=== PATIENT | female | born 1960 | race Hispanic/Latino ===

== ENCOUNTER 2018-07-28 17:34 | Emergency (ER) | payer OTHER ==
[2018-07-28] MEDS ORDERED: FENTANYL CITR 100 MCG/2 ML ONE (18:12)
--- NOTE | 2018-07-28 18:54 | RAD REPORT ---
EXAM DESCRIPTION: USExtremdestiny Venous Uni Ltd07/28/2018 6:48 pm CLINICAL HISTORY: Right leg pain and swelling. COMPARISON: None. FINDINGS: Right common femoral, superficial femoral, popliteal and right posterior tibial veins are compressible and demonstrate augmentation. Doppler demonstrates good flow. IMPRESSION: No evidence of deep venous thrombosis involving the right lower extremity.
[2018-07-28 18:57] LABS: Absolute Monocytes 0.5 K/uL (0.1-1.3); Absolute Neutrophil 4.3 K/uL (1.8-8.0); Basophils % 0.4 % (0-1.3); Hematocrit 40.2 % (36.0-45.0); MCH 29.5 pg (27.0-35.0); MCV 86.9 fL (80-100); MPV 8.4 fL (7.6-11.3); Monocytes % 6.6 % (3.3-12.3); RBC Red Blood Cell Count 4.62 M/uL (3.86-4.86)
[2018-07-28 19:06] LABS: Protime INR 1.01
[2018-07-28 19:20] LABS: ALT/SGPT 45 U/L (12-78); AST/SGOT 19 U/L (15-37); Albumin 4.1 g/dL (3.4-5.0); Alkaline Phosphatase 130 U/L (45-117); BUN Blood Urea Nitrogen 13 mg/dL (7-18); Bicarbonate 26 mmol/L (21-32); Bilirubin Direct < 0.1 mg/dL (0-0.2); Bilirubin Total 0.3 mg/dL (0.2-1.0); Glucose Level 104 mg/dL (74-106); NT PRO-BNP 87 pg/mL (<125); Potassium 3.8 mmol/L (3.5-5.1); Protein, Total 8.2 g/dL (6.4-8.2); Sodium Level 139 mmol/L (136-145); Troponin (Emerg Dept Use Only) < 0.02 ng/mL (0.0-0.045)
--- NOTE | 2018-07-28 19:55 | RAD REPORT ---
EXAM DESCRIPTION: CT - Chest For Pe Angio - 07/28/2018 7:43 pm CLINICAL HISTORY: sob COMPARISON: 2008 TECHNIQUE: Dynamically enhanced axial 3 mm thick images of the chest were obtained during administra tion of <100> mL Isovue 370 IV contrast. Coronal and oblique reconstruction images were generated and reviewed. Exam utilizes a protocol for optimal evaluation of pulmonary arterial tree. Maximum intensity projections 3D imaging was utilized All CT scans are performed using dose optimization technique as appropriate and may include automated exposure control or mA/KV adjustment according to patient size. FINDINGS: A pulmonary embolus is not seen. A thoracic aortic aneurysm is not noted. A pleural effusion is not seen. A pericardial effusion is not seen. A lung consolidation is not present. Fatty infiltration liver is present IMPRESSION: Negative for a pulmonary embolism.
--- NOTE | 2018-07-28 20:03 | ER ---
Nurse's Notes [facility] Name: Cindi Coats Age: 57 yrs Sex: Female : 1960 Arrival Date: 07/28/2018 Time: 17:34 Bed 23 Private MD: Diagnosis: Pain in right leg Presentation: 07/28 17:45 Presenting complaint: Patient states: right lower leg pain and swelling that began 2-3 aa5 days ago. 17:45 Transition of care: patient was not received from another setting of care. Onset of aa5 symptoms was July 2018. Risk Assessment: Do you want to hurt yourself or someone else? Patient reports no desire to harm self or others. Initial Sepsis Screen: Does the patient meet any 2 criteria? No. Patient's initial sepsis screen is negative. Does the patient have a suspected source of infection? No. Patient's initial sepsis screen is negative. Care prior to arrival: None. 17:45 Method Of Arrival: Ambulatory aa5 17:45 Acuity: HANNAH 3 aa5 Historical: - Allergies: 17:50 Sulfa (Sulfonamide Antibiotics); aa5 - PMHx: 17:50 PULMONARY HYPERTENSION; aa5 - PSHx: 17:50 Hysterectomy; Cholecystectomy; cyst removed from back; aa5 - Immunization history:: Adult Immunizations up to date. - Ebola Screening: : No symptoms or risks identified at this time. - Social history:: Smoking status: Patient/guardian denies using tobacco, never smoked. Screenin:11 Abuse screen: Denies threats or abuse. Nutritional screening: No deficits noted. tl3 Tuberculosis screening: No symptoms or risk factors identified. Fall Risk None identified. Secondary diagnosis (15 points) impaired mobility. Assessment: 18:11 General: Appears uncomfortable, obese, well groomed, well developed, well nourished, tl3 Behavior is cooperative, appropriate for age, anxious. Pain: Complains of pain in right grove. Neuro: Level of Consciousness is awake, alert, obeys commands, Oriented to person, place, time, situation, Appropriate for age. Cardiovascular: Patient's skin is warm and dry. Respiratory: Airway is patent Respiratory effort is even, unlabored, Respiratory pattern is regular, symmetrical. GI: No signs and/or symptoms were reported involving the gastrointestinal system. : No signs and/or symptoms were reported regarding the genitourinary system. EENT: No signs and/or symptoms were reported regarding the EENT system. Derm: No signs and/or symptoms reported regarding the dermatologic system. Musculoskeletal: Swelling present in right grove right calf measured 20.25 inches in diameter. left calf was 20 inches in diameter. 18:54 Reassessment: No changes from previously documented assessment. Patient and/or family tl3 updated on plan of care and expected duration. Pain level reassessed. Patient is alert, oriented x 3, equal unlabored respirations, skin warm/dry/pink. pt returned from Ultrasound. 19:47 Reassessment: Patient appears in no apparent distress at this time. No changes from tl3 previously documented assessment. Patient and/or family updated on plan of care and expected duration. Pain level reassessed. Patient is alert, oriented x 3, equal unlabored respirations, skin warm/dry/pink. pt in CT. Vital Signs: 17:48 BP 173 / 63; Pulse 80; Resp 20 S; Temp 97.5(TE); Pulse Ox 97% on R/A; Weight 112.49 kg aa5 (R); Height 5 ft. 2 in. (157.48 cm) (R); Pain 9/10; 18:11 BP 147 / 74; Pulse 75; Resp 18; Pulse Ox 95% ; tl3 18:54 BP 132 / 70; Pulse 72; Resp 18; Pulse Ox 99% on R/A; tl3 17:48 Body Mass Index 45.36 (112.49 kg, 157.48 cm) aa5 ED Course: 17:34 Patient arrived in ED. ds1 17:45 Arm band placed on Patient placed in an exam room, on a stretcher. aa5 17:50 Triage completed. aa5 17:52 Viktoriya Curiel FNP-C is PHCP. snw 17:52 Lobo Ware MD is Attending Physician. snw 18:11 Elizabeth Rivera, SVEN is Primary Nurse. tl3 18:11 Patient has correct armband on for positive identification. Placed in gown. Bed in low tl3 position. Call light in reach. Side rails up X 1. Pulse ox on. NIBP on. 18:11 No provider procedures requiring assistance completed. Inserted saline lock: 20 gauge tl3 in right antecubital area, using aseptic technique. Blood collected. 18:27 CT Chest For PE Angio Sent. tl3 18:27 US Extremity Venous Unilateral Ltd Sent. tl3 18:28 Patient taken to ultrasound. via stretcher. tl3 18:41 Radiology exam delayed due to lab results not completed at this time. (BUN/Creatinine). nj 18:48 US Extremity Venous Unilateral Ltd In Process Unspecified. EDMS 19:42 CT completed. Patient tolerated procedure well. Patient moved back from CT. jg6 19:43 CT Chest For PE Angio In Process Unspecified. EDMS 19:51 Patient moved back from radiology. tl3 20:20 IV discontinued, intact, bleeding controlled, No redness/swelling at site. Pressure mg2 dressing applied. Administered Medications: 18:05 Drug: fentaNYL (PF) 50 mcg Route: IVP; Site: right antecubital; tl3 20:13 Follow up: Response: No adverse reaction; Marked relief of symptoms mg2 Outcome: 20:01 Discharge ordered by MD. snw 20:20 Discharged to home via wheelchair. mg2 20:20 Condition: stable 20:20 Discharge instructions given to patient, Instructed on discharge instructions, follow up and referral plans. medication usage, Demonstrated understanding of instructions, follow-up care, medications, Prescriptions given X 2. 20:40 Patient left the ED. tl3 Signatures: Dispatcher [employer] EDMS Viktoriya Curiel, AIRPLANE PILOT CROP DUSTING-C AIRPLANE PILOT CROP DUSTING-Katie Currie ds1 Erika Pepper, RN RN aa5 Hammad Rizo Tammy, RN RN tl3 Dago Camilo RN RN mg2 Kaley Agosto6
--- NOTE | 2018-07-28 20:03 | EDPHYS ---
Physician Documentation [facility] Name: Cindi Coats Age: 57 yrs Sex: Female : 1960 Arrival Date: 07/28/2018 Time: 17:34 Bed 23 Private MD: ED Physician Lobo Ware HPI: 07/28 18:38 This 57 yrs old Female presents to ER via Ambulatory with complaints of Leg snw Pain. 18:38 The patient presents with pain, swelling, tenderness. The complaints affect the medial snw aspect of right calf. Context: The problem was sustained at home, resulted from an unknown cause, the patient can partially bear weight, the patient is able to ambulate, with mild difficulty. Onset: The symptoms/episode began/occurred suddenly, 2 day(s) ago, and became persistent. Associated signs and symptoms: Pertinent positives: calf tenderness, swelling. Treatment prior to arrival includes: no previous treatment. Severity of symptoms: At their worst the symptoms were moderate. The patient has not experienced similar symptoms in the past. The patient has been recently seen by a physician: the patient's primary care provider, earlier today, with similar presenting complaints, and was sent to the [facility] Emergency Department for further evaluation. Historical: - Allergies: 17:50 Sulfa (Sulfonamide Antibiotics); aa5 - PMHx: 17:50 PULMONARY HYPERTENSION; aa5 - PSHx: 17:50 Hysterectomy; Cholecystectomy; cyst removed from back; aa5 - Immunization history:: Adult Immunizations up to date. - Ebola Screening: : No symptoms or risks identified at this time. - Social history:: Smoking status: Patient/guardian denies using tobacco, never smoked. ROS: 18:38 Constitutional: Negative for fever, chills, and weight loss, Eyes: Negative for injury, snw pain, redness, and discharge, ENT: Negative for injury, pain, and discharge, Neck: Negative for injury, pain, and swelling, Cardiovascular: Negative for chest pain, palpitations, and edema, Abdomen/GI: Negative for abdominal pain, nausea, vomiting, diarrhea, and constipation, Back: Negative for injury and pain, : Negative for injury, bleeding, discharge, and swelling, Skin: Negative for injury, rash, and discoloration, Neuro: Negative for headache, weakness, numbness, tingling, and seizure. 18:38 Respiratory: Positive for shortness of breath, on exertion. 18:38 MS/extremity: Positive for pain, swelling, tenderness, of the medial aspect of right calf. Exam: 18:36 Constitutional: This is a well developed, well nourished patient who is awake, alert, snw and in no acute distress. Head/Face: Normocephalic, atraumatic. Eyes: Pupils equal round and reactive to light, extra-ocular motions intact. Lids and lashes normal. Conjunctiva and sclera are non-icteric and not injected. Cornea within normal limits. Periorbital areas with no swelling, redness, or edema. ENT: Nares patent. No nasal discharge, no septal abnormalities noted. Tympanic membranes are normal and external auditory canals are clear. Oropharynx with no redness, swelling, or masses, exudates, or evidence of obstruction, uvula midline. Mucous membranes moist. Neck: Trachea midline, no thyromegaly or masses palpated, and no cervical lymphadenopathy. Supple, full range of motion without nuchal rigidity, or vertebral point tenderness. No Meningismus. Chest/axilla: Normal chest wall appearance and motion. Nontender with no deformity. No lesions are appreciated. Cardiovascular: Regular rate and rhythm with a normal S1 and S2. No gallops, murmurs, or rubs. Normal PMI, no JVD. No pulse deficits. Abdomen/GI: Soft, non-tender, with normal bowel sounds. No distension or tympany. No guarding or rebound. No evidence of tenderness throughout. Back: No spinal tenderness. No costovertebral tenderness. Full range of motion. Skin: Warm, dry with normal turgor. Normal color with no rashes, no lesions, and no evidence of cellulitis. Neuro: Awake and alert, GCS 15, oriented to person, place, time, and situation. Cranial nerves II-XII grossly intact. Motor strength 5/5 in all extremities. Sensory grossly intact. Cerebellar exam normal. Normal gait. Psych: Awake, alert, with orientation to person, place and time. Behavior, mood, and affect are within normal limits. 18:36 Respiratory: the patient does not display signs of respiratory distress, Respirations: shallow respirations, Breath sounds: are clear throughout. 18:36 Musculoskeletal/extremity: Extremities: grossly normal except: noted in the medial aspect of right calf: swelling, tenderness, ROM: no acute changes, Circulation is intact in all extremities. Compartment Syndrome exam of affected extremity: is normal. DVT Exam: pain, swelling, of the right leg, of the medial aspect of right calf. Vital Signs: 17:48 BP 173 / 63; Pulse 80; Resp 20 S; Temp 97.5(TE); Pulse Ox 97% on R/A; Weight 112.49 kg aa5 (R); Height 5 ft. 2 in. (157.48 cm) (R); Pain 9/10; 18:11 BP 147 / 74; Pulse 75; Resp 18; Pulse Ox 95% ; tl3 18:54 BP 132 / 70; Pulse 72; Resp 18; Pulse Ox 99% on R/A; tl3 17:48 Body Mass Index 45.36 (112.49 kg, 157.48 cm) aa5 MDM: 17:53 Patient medically screened. snw 20:17 Data reviewed: vital signs, nurses notes. Data interpreted: Pulse oximetry: on room air snw is 99 %. Interpretation: normal. Counseling: I had a detailed discussion with the patient and/or guardian regarding: the historical points, exam findings, and any diagnostic results supporting the discharge/admit diagnosis, lab results, radiology results, the need for outpatient follow up, to return to the emergency department if symptoms worsen or persist or if there are any questions or concerns that arise at home. Special discussion: Based on the history and exam findings, there is no indication for further emergent testing or inpatient evaluation. I discussed with the patient/guardian the need to see the primary care provider for further evaluation of the symptoms. 07/28 18:12 Order name: Basic Metabolic Panel; Complete Time: 19:21 snw 07/28 18:12 Order name: CBC with Diff; Complete Time: 19:05 snw 07/28 18:12 Order name: LFT's; Complete Time: 19:21 snw 07/28 18:12 Order name: Magnesium; Complete Time: :21 snw 07/28 18:12 Order name: NT PRO-BNP; Complete Time: 19:21 snw 07/28 18:12 Order name: PT-INR; Complete Time: 19:10 snw 07/28 18:12 Order name: US Extremity Venous Unilateral Ltd; Complete Time: 19:05 snw 07/28 18:12 Order name: CT Chest For PE Angio; Complete Time: 20:00 snw 07/28 18:12 Order name: Troponin (emerg Dept Use Only); Complete Time: 19:21 snw 07/28 18:12 Order name: EKG; Complete Time: 18:14 snw 07/28 18:12 Order name: Cardiac monitoring; Complete Time: 18:27 snw 07/28 18:12 Order name: EKG - Nurse/Tech; Complete Time: 20:06 snw 07/28 18:12 Order name: IV Saline Lock; Complete Time: 18:27 snw 07/28 18:12 Order name: Labs collected and sent; Complete Time: 18:27 snw 07/28 18:12 Order name: O2 Per Protocol; Complete Time: 18:27 snw 07/28 18:12 Order name: O2 Sat Monitoring; Complete Time: 18:27 snw Administered Medications: 18:05 Drug: fentaNYL (PF) 50 mcg Route: IVP; Site: right antecubital; tl3 20:13 Follow up: Response: No adverse reaction; Marked relief of symptoms mg2 Disposition: 07/29 09:23 Co-signature as Attending Physician, Lobo Ware MD I agree with the assessment and kdr plan of care. Disposition: 07/28/18 20:01 Discharged to Home. Impression: Pain in right leg. - Condition is Stable. - Discharge Instructions: Musculoskeletal Pain, Pain Without a Known Cause, Heat Therapy. - Prescriptions for Tylenol- Codeine #3 300-30 mg Oral Tablet - take 1 tablet by ORAL route every 6 hours As needed; 6 tablet. Diclofenac Sodium 75 mg Oral Tablet Sustained Release - take 1 tablet by ORAL route 2 times per day; 30 tablet. - Medication Reconciliation Form, Thank You Letter, Antibiotic Education, Prescription Opioid Use form. - Follow up: Private Physician; When: 2 - 3 days; Reason: Recheck today's complaints, Continuance of care, Re-evaluation by your physician. Follow up: Emergency Department; When: As needed; Reason: Worsening of condition. Signatures: Dispatcher [employer] EDLobo Ramos MD MD kdr Therrien, Shelly, MAIN LINE ASSEMBLER-C MAIN LINE ASSEMBLER-Csnw Erika Pepper, RN RN aa5 Elizabeth Rivera RN RN tl3 Dago Camilo RN mg2 Corrections: (The following items were deleted from the chart) 07/28 20:40 20:01 07/28/2018 20:01 Discharged to Home. Impression: Pain in right leg. Condition is tl3 Stable. Forms are Medication Reconciliation Form, Thank You Letter, Antibiotic Education, Prescription Opioid Use. Follow up: Private Physician; When: 2 - 3 days; Reason: Recheck today's complaints, Continuance of care, Re-evaluation by your physician. Follow up: Emergency Department; When: As needed; Reason: Worsening of condition. snw
[2018-07-28 20:45] VITALS: TEMP 97.5
[2018-07-28 20:48] VITALS: BP 132/70; O2SAT 99
--- NOTE | 2018-07-30 11:01 | EKG ---
Test Date: 2018-07-28 Test Time: 19:18:45 Software Applications Designer: [place] MEASUREMENT RESULTS: Intervals: Rate: 70 AL: 142 QRSD: 84 QT: 404 QTc: 436 [place]: P: 18 AL: 142 QRS: 52 T: 21 INTERPRETIVE STATEMENTS: Normal sinus rhythm Normal ECG Compared to ECG 10/28/2010 13:22:10 No significant changes Electronically Signed On 07-30-18 10:56:07 CDT by David Petit
== END 2018-07-28 20:40 | disposition home or self-care (01) ==
LOC: ER 17:34
DX: M79.661 Pain in right lower leg (principal); I27.20 Pulmonary hypertension, unspecified; Z88.2 Allergy status to sulfonamides
CPT/HCPCS: 36415; 71275; 80048; 80076; 83735; 83880; 84484; 85025; 85610; 93005; 93971; 96374; 99284; J3010; Q9967

== ENCOUNTER 2021-05-19 10:48 | Emergency (ER) | payer OTHER ==
[2021-05-19 11:37] LABS: Absolute Lymphocytes (CBC) 2.5 K/uL (0.7-4.9); Basophils % 0.9 % (0-1.3); Hematocrit 36.4 % (36.0-45.0); Lymphocytes % 44.1 % (15.3-44.8); RBC Red Blood Cell Count 4.23 M/uL (3.86-4.86)
[2021-05-19 11:53] LABS: BUN Blood Urea Nitrogen 21 mg/dL (7-18); Bicarbonate 27 mmol/L (21-32); Glucose Level 106 mg/dL (74-106); Potassium 3.6 mmol/L (3.5-5.1); Sodium Level 141 mmol/L (136-145)
--- NOTE | 2021-05-19 12:02 | RAD REPORT ---
EXAM DESCRIPTION: RAD - Chest Pa And Lat (2 Views) - 05/19/2021 11:50 am CLINICAL HISTORY: COUGH Chest pain. COMPARISON: Chest Pa And Lat (2 Views) dated 03/09/2018; Chest Pa And Lat (2 Views) dated 09/01/2017; CHEST SINGLE VIEW dated 01/03/2015; CHEST PA AND LAT 2 VIEW dated 04/20/2012 FINDINGS: The lungs are mildly hyperexpanded but clear. The heart is normal in size. No displaced fr actures. IMPRESSION: No acute or concerning finding suspected.
--- NOTE | 2021-05-19 12:12 | ER ---
Nurse's Notes [facility] Name: Cindi Coats Age: 60 yrs Sex: Female : 1960 Arrival Date: 05/19/2021 Time: 10:51 Bed 2 Private MD: Diagnosis: Acute bronchitis, unspecified Presentation: 05/19 10:57 Chief complaint: Patient states: cough, congestion x SOB for over a week. Denies fever. ca1 Coronavirus screen: Client denies travel out of the [place] in the last 14 days. congestion, cough unrelated to allergies, shortness of breath, Client presents with at least one sign or symptom that may indicate coronavirus-19. Standard/surgical mask placed on the client. Provider contacted for isolation considerations. Ebola Screen: Patient negative for fever greater than or equal to 101.5 degrees Fahrenheit, and additional compatible Ebola Virus Disease symptoms Patient denies exposure to infectious person. Patient denies travel to an Ebola-affected area in the 21 days before illness onset. No symptoms or risks identified at this time. Initial Sepsis Screen: Does the patient meet any 2 criteria? No. Patient's initial sepsis screen is negative. Does the patient have a suspected source of infection? No. Patient's initial sepsis screen is negative. Risk Assessment: Do you want to hurt yourself or someone else? Patient reports no desire to harm self or others. Onset of symptoms was May 19, 2021. 10:57 Method Of Arrival: Ambulatory ca1 10:57 Acuity: HANNAH 3 ca1 Historical: - Allergies: 10:59 Sulfa (Sulfonamide Antibiotics); ca1 - PMHx: 10:59 Hypertension; PULMONARY HYPERTENSION; ca1 - PSHx: 10:59 back surgery; ca1 - Immunization history:: Client reports having NOT received the Covid vaccine. Flu vaccine is not up to date. - Social history:: Smoking status: Patient denies any tobacco usage or history of. Screenin:02 Abuse screen: Denies threats or abuse. Denies injuries from another. Nutritional ph screening: No deficits noted. Tuberculosis screening: No symptoms or risk factors identified. Fall Risk None identified. Assessment: 11:33 General: Appears in no apparent distress. comfortable, Behavior is calm, cooperative, ph appropriate for age. Pain: Complains of pain in ribs, bilateral, worse with cough. Neuro: Level of Consciousness is awake, alert, obeys commands, Oriented to person, place, time, situation. Cardiovascular: Capillary refill < 3 seconds in bilateral fingers Patient's skin is warm and dry. Respiratory: Reports shortness of breath at rest cough that is productive, persistent pain with cough Airway is patent Respiratory effort is even, unlabored, Respiratory pattern is regular, symmetrical. GI: No signs and/or symptoms were reported involving the gastrointestinal system. Patient currently denies abdominal pain, diarrhea, nausea, vomiting. Derm: Skin is intact, is fragile, Skin is pink, warm \T\ dry. Musculoskeletal: Circulation, motion, and sensation intact. Range of motion: intact in all extremities. 12:30 Reassessment: Patient appears in no apparent distress at this time. Patient and/or ph family updated on plan of care and expected duration. Pain level reassessed. Patient is alert, oriented x 3, equal unlabored respirations, skin warm/dry/pink. Awaiting COVID results. 13:30 Reassessment: Patient appears in no apparent distress at this time. Patient and/or ph family updated on plan of care and expected duration. Pain level reassessed. Patient is alert, oriented x 3, equal unlabored respirations, skin warm/dry/pink. D/C pending pt receiving additional neb tx. Vital Signs: 10:57 BP 125 / 72; Pulse 76; Resp 20 S; Temp 97.3(TE); Pulse Ox 97% on R/A; Weight 119.75 kg ca1 (R); Height 5 ft. 1 in. (154.94 cm) (R); Pain 0/10; 12:00 BP 118 / 78; Pulse 89; Resp 18; Pulse Ox 98% on R/A; ph 13:55 BP 112 / 72; Pulse 92; Resp 18; Temp 97.0; Pulse Ox 100% on R/A; ph 10:57 Body Mass Index 49.88 (119.75 kg, 154.94 cm) ca1 ED Course: 10:51 Patient arrived in ED. rg4 10:59 Triage completed. ca1 10:59 Arm band placed on right wrist. ca1 11:00 Ranjan Schrader PA is PHCP. jr8 11:00 Joseph Rasmussen MD is Attending Physician. jr8 11:01 Bishop, Shani, RN is Primary Nurse. ph 11:02 Patient has correct armband on for positive identification. Placed in gown. Bed in low ph position. Call light in reach. Side rails up X 1. Pulse ox on. NIBP on. Door closed. Noise minimized. 11:25 Initial lab(s) drawn, by me, sent to lab. COVID swab sent to lab. Inserted saline lock: ph 22 gauge in right antecubital area, using aseptic technique. Blood collected. 11:50 XRAY Chest Pa And Lat (2 Views) In Process Unspecified. EDMS 13:55 No provider procedures requiring assistance completed. IV discontinued, intact, ph bleeding controlled, No redness/swelling at site. Pressure dressing applied. Administered Medications: 12:04 Drug: Albuterol - atroVENT (ipratropium) (3:1) (2.5 mg - 0.5 mg) 3 ml Route: Nebulizer; ph 13:56 Follow up: Response: No adverse reaction ph 12:04 Drug: SOLU-Medrol (methylPrednisoLONE) 125 mg Route: IVP; Site: right antecubital; ph 13:56 Follow up: Response: No adverse reaction ph 13:00 Drug: Albuterol - atroVENT (ipratropium) (3:1) (2.5 mg - 0.5 mg) 3 ml Route: Nebulizer; ph 13:58 Follow up: Response: No adverse reaction ph Outcome: 12:11 Discharge ordered by MD. richards 13:58 Patient left the ED. ph 13:58 Discharged to home ambulatory. ph 13:58 Condition: good 13:58 Discharge instructions given to patient, Instructed on discharge instructions, follow up and referral plans. medication usage, Demonstrated understanding of instructions, follow-up care, medications, Prescriptions given X 2. Signatures: Dispatcher [employer] EDMS Ranjan Schrader PA PA jr8 Shani Bishop RN RN ph Alaina Agosto 4 Ann-Marie Hobbs RN RN ca1 Corrections: (The following items were deleted from the chart) 13:58 03:00 Albuterol - atroVENT (ipratropium) (3:1) (2.5 mg - 0.5 mg) 3 ml Nebulizer ph ph
--- NOTE | 2021-05-19 12:12 | EDPHYS ---
Physician Documentation [facility] Name: Cindi Coats Age: 60 yrs Sex: Female : 1960 Arrival Date: 05/19/2021 Time: 10:51 Bed 2 Private MD: ED Physician Joseph Rasmussen HPI: 05/19 11:23 This 60 yrs old Female presents to ER via Ambulatory with complaints of jr8 Congestion, Breathing Difficulty. 11:23 The patient has shortness of breath at rest. Onset: The symptoms/episode began/occurred jr8 suddenly, 1 week(s) ago, and became worse and became persistent. Duration: The symptoms are continuous, and are steadily getting worse. The patient's shortness of breath is aggravated by light activity. Associated signs and symptoms: Pertinent positives: productive cough. Severity of symptoms: At their worst the symptoms were moderate in the emergency department the symptoms are unchanged. The patient has not experienced similar symptoms in the past. The patient has not recently seen a physician. Historical: - Allergies: 10:59 Sulfa (Sulfonamide Antibiotics); ca1 - PMHx: 10:59 Hypertension; PULMONARY HYPERTENSION; ca1 - PSHx: 10:59 back surgery; ca1 - Immunization history:: Client reports having NOT received the Covid vaccine. Flu vaccine is not up to date. - Social history:: Smoking status: Patient denies any tobacco usage or history of. ROS: 11:23 Eyes: Negative for injury, pain, redness, and discharge, ENT: Negative for injury, jr8 pain, and discharge, Neck: Negative for injury, pain, and swelling, Cardiovascular: Negative for chest pain, palpitations, and edema, Abdomen/GI: Negative for abdominal pain, nausea, vomiting, diarrhea, and constipation, Back: Negative for injury and pain, MS/Extremity: Negative for injury and deformity, Skin: Negative for injury, rash, and discoloration, Neuro: Negative for headache, weakness, numbness, tingling, and seizure. 11:23 Respiratory: Positive for cough, dyspnea on exertion, shortness of breath, wheezing. Exam: 11:23 Constitutional: This is a well developed, well nourished patient who is awake, alert, jr8 and in no acute distress. Eyes: Pupils equal round and reactive to light, extra-ocular motions intact. Lids and lashes normal. Conjunctiva and sclera are non-icteric and not injected. Cornea within normal limits. Periorbital areas with no swelling, redness, or edema. ENT: Nares patent. No nasal discharge, no septal abnormalities noted. Tympanic membranes are normal and external auditory canals are clear. Oropharynx with no redness, swelling, or masses, exudates, or evidence of obstruction, uvula midline. Mucous membranes moist. Neck: Trachea midline, no thyromegaly or masses palpated, and no cervical lymphadenopathy. Supple, full range of motion without nuchal rigidity, or vertebral point tenderness. No Meningismus. Cardiovascular: Regular rate and rhythm with a normal S1 and S2. No gallops, murmurs, or rubs. Normal PMI, no JVD. No pulse deficits. Abdomen/GI: Soft, non-tender, with normal bowel sounds. No distension or tympany. No guarding or rebound. No evidence of tenderness throughout. Back: No spinal tenderness. No costovertebral tenderness. Full range of motion. Skin: Warm, dry with normal turgor. Normal color with no rashes, no lesions, and no evidence of cellulitis. MS/ Extremity: Pulses equal, no cyanosis. Neurovascular intact. Full, normal range of motion. Neuro: Awake and alert, GCS 15, oriented to person, place, time, and situation. Cranial nerves II-XII grossly intact. Motor strength 5/5 in all extremities. Sensory grossly intact. 11:23 Respiratory: the patient does not display signs of respiratory distress, Respirations: tachypnea, that is mild, Breath sounds: wheezing: expiratory that is moderate, is heard diffusely. Vital Signs: 10:57 BP 125 / 72; Pulse 76; Resp 20 S; Temp 97.3(TE); Pulse Ox 97% on R/A; Weight 119.75 kg ca1 (R); Height 5 ft. 1 in. (154.94 cm) (R); Pain 0/10; 12:00 BP 118 / 78; Pulse 89; Resp 18; Pulse Ox 98% on R/A; ph 13:55 BP 112 / 72; Pulse 92; Resp 18; Temp 97.0; Pulse Ox 100% on R/A; ph 10:57 Body Mass Index 49.88 (119.75 kg, 154.94 cm) ca1 MDM: 11:00 Patient medically screened. jr8 12:09 Data reviewed: vital signs, nurses notes, lab test result(s), radiologic studies, plain jr8 films. Data interpreted: Pulse oximetry: on room air is 97 %. Interpretation: normal. Counseling: I had a detailed discussion with the patient and/or guardian regarding: the historical points, exam findings, and any diagnostic results supporting the discharge/admit diagnosis, lab results, radiology results, the need for outpatient follow up, a family practitioner, to return to the emergency department if symptoms worsen or persist or if there are any questions or concerns that arise at home. 12:09 ED course: Patient feeling better. No signs of pneumonia on CXR. Blood and VS stable. jr8 Will d/c home with steroids and breathing treatments. No indication for Abx at this time . 05/19 11:12 Order name: CBC with Diff; Complete Time: 11:56 jr8 05/19 11:12 Order name: Basic Metabolic Panel; Complete Time: 11:56 jr8 05/19 11:12 Order name: XRAY Chest Pa And Lat (2 Views); Complete Time: 12:08 jr8 05/19 12:42 Order name: SARS-COV-2 RT PCR; Complete Time: 12:54 EDMS 05/19 11:12 Order name: IV; Complete Time: 11:30 jr8 Administered Medications: 12:04 Drug: Albuterol - atroVENT (ipratropium) (3:1) (2.5 mg - 0.5 mg) 3 ml Route: Nebulizer; ph 13:56 Follow up: Response: No adverse reaction ph 12:04 Drug: SOLU-Medrol (methylPrednisoLONE) 125 mg Route: IVP; Site: right antecubital; ph 13:56 Follow up: Response: No adverse reaction ph 13:00 Drug: Albuterol - atroVENT (ipratropium) (3:1) (2.5 mg - 0.5 mg) 3 ml Route: Nebulizer; ph 13:58 Follow up: Response: No adverse reaction ph Disposition: 16:55 Co-signature as Attending Physician, Joseph Rasmussen MD. rn Disposition Summary: 05/19/21 12:11 Discharge Ordered Location: Home jr8 Problem: new jr8 Symptoms: have improved jr8 Condition: Stable jr8 Diagnosis - Acute bronchitis, unspecified jr8 Followup: jr8 - With: Private Physician - When: 5 - 6 days - Reason: Recheck today's complaints, Continuance of care, Re-evaluation by your physician Discharge Instructions: - Discharge Summary Sheet jr8 - Acute Bronchitis, Adult, [id number] jr8 Forms: - Medication Reconciliation Form jr8 - Thank You Letter jr8 - Antibiotic Education jr8 - Prescription Opioid Use jr8 Prescriptions: - albuterol sulfate 90 mcg/actuation Inhalation HFA aerosol inhaler - inhale 2 puff by INHALATION route every 4-6 hours; 1 Inhaler; Refills: 0, jr8 Product Selection Permitted - Medrol (Brody) 4 mg Oral Tablets, Dose Pack - take 1 tablet by ORAL route as directed - follow package instructions; 1 jr8 packet; Refills: 0, Product Selection Permitted Signatures: Dispatcher [employer] EDJoseph Funk MD MD rn Ranjan Schrader PA PA jr8 Shani Bishop RN RN ph Ann-Marie Hobbs RN RN ca1 Corrections: (The following items were deleted from the chart) 11:43 11:12 CORONAVIRUS+MR.LAB.BRZ ordered. EDNH EDMS
[2021-05-19] MEDS ORDERED: METHYLPREDNISOLONE 125 MG INJ ONE (12:17)
[2021-05-19] MEDS ORDERED: ALBUTEROL 2.5 MG/3 ML NEB SOL ONE ×2 (12:18→13:19)
[2021-05-19] MEDS ORDERED: IPRATROPIUM BROM 0.5MG/2.5ML ONE ×2 (12:18→13:20)
== END 2021-05-19 13:58 | disposition home or self-care (01) ==
LOC: ER 10:48
DX: J20.9 Acute bronchitis, unspecified (principal); I10 Essential (primary) hypertension; Z20.822 Contact with and (suspected) exposure to COVID-19; Z88.2 Allergy status to sulfonamides
CPT/HCPCS: 85025; 80048; 36415; 71046; 96374; 99284; U0003; J2930

== ENCOUNTER 2021-06-19 15:33 | Inpatient (IN) | payer OTHER ==
--- OUTSIDE RECORDS SUMMARY | 2021-06-19 15:36 | XMS REPORT | Continuity of Care Document ---
:1960 Author Organization [facility] t Address [address] [place] [address] [address] [place] [address] Care Team Providers Name Role Phone Nurse, Urgent Attending Clinician Unavailable Lab, Fam Pob I Attending Clinician Unavailable Doctor Unassigned, Name Attending Clinician Unavailable Problems This patient has no known problems. Allergies, Adverse Reactions, Alerts This patient has no known allergies or adverse reactions. Medications This patient has no known medications. Procedures This patient has no known procedures. Encounters Start End Encounter Admission Attending Care Care Encounter Source Date/Time Date/Time Type Type Clinicians Facility Department ID 2021-06-18 2021-06-18 Telephone Nurse, Patrice Perez [id number] 00:00:00 00:00:00 Urgent Pediatric [id number] s and [id number] Adult [id number] [facility] 2021-06-14 2021-06-14 Laboratory Lab, [facility] [id number] 13:44:00 14:04:00 Only Fam Pob I Health [id number] [place] [id number] Professio [id number] [address] 2021-06-14 2021-06-14 Orders Doctor DELILAH [id number] 00:00:00 00:00:00 Only Unassigned, ITA [id number] [place] [facility] [phone] [id number] Results This patient has no known results.
--- NOTE | 2021-06-19 16:38 | RAD REPORT ---
EXAM DESCRIPTION: RAD - Chest Pa And Lat (2 Views) - 06/19/2021 4:22 pm CLINICAL HISTORY: Cough;SOB COMPARISON: Two view chest May 19 TECHNIQUE: Frontal and lateral views of the chest were obtained. FINDINGS: The lungs are normal volume. Since prior imaging interstitial and alveolar opacities have developed in the lower lung shay. Given the provided history this is most likely a mild bilateral C OVID-19 pneumonia. Trachea is midline. Heart size is normal and central vasculature is within normal limits. No pleur al effusion or pneumothorax seen. No acute bony finding noted. No aortic abnormality. IMPRESSION: Mild bilateral COVID-19 pneumonia.
[2021-06-19 19:09] LABS: Absolute Lymphocytes (CBC) 2.1 K/uL (0.7-4.9); Basophils % 0.7 % (0-1.3); Hematocrit 42.6 % (36.0-45.0); MPV 8.1 fL (7.6-11.3); RBC Red Blood Cell Count 4.89 M/uL (3.86-4.86)
[2021-06-19 19:15] LABS: Protime INR 1.14
[2021-06-19 19:32] LABS: ALT/SGPT 76 U/L (12-78); AST/SGOT 48 U/L (15-37); Albumin 3.8 g/dL (3.4-5.0); Alkaline Phosphatase 122 U/L (45-117); BUN Blood Urea Nitrogen 11 mg/dL (7-18); Bicarbonate 23 mmol/L (21-32); Bilirubin Direct 0.1 mg/dL (0-0.2); Bilirubin Total 0.5 mg/dL (0.2-1.0); Ferritin 1008.3 ng/mL (8-388); Glucose Level 110 mg/dL (74-106); Magnesium 2.1 mg/dL (1.8-2.4); NT PRO-BNP 28 pg/mL (<125); Potassium 3.8 mmol/L (3.5-5.1); Protein, Total 8.5 g/dL (6.4-8.2); Sodium Level 134 mmol/L (136-145); Troponin (Emerg Dept Use Only) < 0.02 ng/mL (0.0-0.045)
[2021-06-19 20:26] LABS: Blood Morphology Comment NOT SEEN (NOT SEEN); Platelet Estimate ADEQ; Platelets, Giant PRESENT; White Blood Cell Scan OK (OK)
[2021-06-19 20:31] LABS: Blood Gas Oxyhemoglobin 88.9 % (94-97); Blood O2 Saturation 90.5 % (92-98.5)
[2021-06-19] MEDS ORDERED: NA CHLORIDE 0.9% 1,000 ML ONE (20:48)
[2021-06-19] MEDS ORDERED: METHYLPREDNISOLONE 125 MG INJ ONE (20:48)
--- NOTE | 2021-06-19 21:02 | ER ---
Nurse's Notes [facility] Name: Cindi Coats Age: 60 yrs Sex: Female : 1960 Arrival Date: 06/19/2021 Time: 15:37 Bed 24 Private MD: Meño Huffman Diagnosis: SARS-associated coronavirus as the cause of diseases classified elsewhere;Other viral pneumonia Presentation: 06/19 15:59 Chief complaint: Patient states: COVID positive x 5 days, symptoms started 8 days ago, jl7 increased SOB, pulse ox at home 87%. Coronavirus screen: Client denies travel out of the [place] in the last 14 days. shortness of breath, Client reports previous positive COVID test result. Date of collection: June 11, 2021. Ebola Screen: No symptoms or risks identified at this time. Initial Sepsis Screen: Does the patient meet any 2 criteria? No. Patient's initial sepsis screen is negative. Does the patient have a suspected source of infection? No. Patient's initial sepsis screen is negative. Risk Assessment: Do you want to hurt yourself or someone else? Patient reports no desire to harm self or others. Onset of symptoms was June 11, 2021. 15:59 Method Of Arrival: Ambulatory [facility] 15:59 Acuity: HANNAH 3 jl7 Triage Assessment: 20:05 General: Appears uncomfortable, Behavior is calm, cooperative, appropriate for age. lh3 Pain: Denies pain. Respiratory: Reports shortness of breath cough that is non-productive, pain with cough Pain is 5 out of 10 on a pain scale. Onset: The symptoms/episode began/occurred today, the patient has moderate shortness of breath. Historical: - Allergies: 16:02 Sulfa (Sulfonamide Antibiotics); jl7 - PMHx: 16:02 Hypertension; PULMONARY HYPERTENSION; Hypothyroidism; jl7 - PSHx: 16:02 back surgery; jl7 - Immunization history:: Adult Immunizations unknown, Client reports having NOT received the Covid vaccine. - Social history:: Smoking status: Patient denies any tobacco usage or history of. Screenin:07 Abuse screen: Denies threats or abuse. Nutritional screening: No deficits noted. lh3 Tuberculosis screening: No symptoms or risk factors identified. Fall Risk IV access (20 points). Assessment: 20:07 Cardiovascular: Rhythm is regular. Respiratory: Airway is patent Respiratory effort is lh3 even, labored, Breath sounds are diminished. Vital Signs: 15:59 BP 120 / 70; Pulse 84; Resp 19; Temp 97.6; Pulse Ox 92% ; Weight 116.12 kg; Height 5 jl7 ft. 2 in. (157.48 cm); Pain 7/10; 20:05 BP 127 / 82; Pulse 78; Resp 20; Temp 98.2; Pulse Ox 93% ; lh3 06/20 04:09 BP 117 / 77; Pulse 61; Resp 20; Pulse Ox 97% ; tt3 06/19 15:59 Body Mass Index 46.82 (116.12 kg, 157.48 cm) jl7 ED Course: 06/19 15:37 Patient arrived in ED. mr 16:02 Triage completed. jl7 16:02 Arm band placed on right wrist. jl7 16:03 Frank Dozier PA is PHCP. cp 16:03 Lobo Ware MD is Attending Physician. cp 16:21 XRAY Chest Pa And Lat (2 Views) In Process Unspecified. EDMS 18:50 Inserted saline lock: 20 gauge in right antecubital area, using aseptic technique. mt Blood collected. 20:05 Nelly Mccartney, RN is Primary Nurse. lh3 20:07 Patient has correct armband on for positive identification. Bed in low position. Call 3 light in reach. Side rails up X 1. 20:07 No provider procedures requiring assistance completed. lh3 20:38 Meño Huffman MD is Private Physician. cp 20:40 CT Chest For PE Angio In Process Unspecified. EDMS 21:01 Cornelio Nj PA is Hospitalizing Provider. cp 06/20 02:44 Katherine Lanza MD is Hospitalizing Provider. cp 06:40 Patient admitted, IV remains in place. bb Administered Medications: 06/19 20:36 Drug: SOLU-Medrol (methylPrednisoLONE) 125 mg Route: IVP; Site: right antecubital; lh3 20:36 Drug: NS 0.9% 500 ml Route: IV; Rate: bolus; Site: right antecubital; lh3 20:36 Drug: NS 0.9% 500 ml Route: IV; Rate: 100 ml/hr; Site: right antecubital; lh3 Outcome: 21:02 Decision to Hospitalize by Provider. cyrus 06/20 06:40 Admitted to ER Hold. Please see [facility] for further documentation. bb Condition: stable Instructed on the need for admit. 06/22 00:05 Patient left the ED. kate Signatures: Dispatcher [employer] EDMN Margarette Warren, eMlisa, RN RN bb Frank Dozier PA PA cp Leal, Jahala, RN RN Anna Marie Wilkinson mt, [facility] Yesi Kim RN RN zb Nelly Mccartney RN RN [facility]
--- NOTE | 2021-06-19 21:03 | EDPHYS ---
Physician Documentation [facility] Name: Cindi Coats Age: 60 yrs Sex: Female : 1960 Arrival Date: 06/19/2021 Time: 15:37 Bed 24 Private MD: Meño Huffman ED Physician Lobo Ware HPI: 06/19 16:15 This 60 yrs old Female presents to ER via Ambulatory with complaints of cp COVID+, Shortness Of Breath. 16:15 The patient has shortness of breath at rest. cp 16:15 Onset: The symptoms/episode began/occurred gradually, and became worse today. Duration: cp The symptoms are continuous, and are steadily getting worse. Associated signs and symptoms: Pertinent positives: chest pain, non-productive cough, Pertinent negatives: diaphoresis, dizziness, fever, nausea, vomiting. Severity of symptoms: in the emergency department the symptoms are unchanged despite home interventions. Patient reports testing positive for COVID-19 5 days ago. Patient reports increasing shortness of breath . Historical: - Allergies: 16:02 Sulfa (Sulfonamide Antibiotics); jl7 - PMHx: 16:02 Hypertension; PULMONARY HYPERTENSION; Hypothyroidism; jl7 - PSHx: 16:02 back surgery; jl7 - Immunization history:: Adult Immunizations unknown, Client reports having NOT received the Covid vaccine. - Social history:: Smoking status: Patient denies any tobacco usage or history of. ROS: 16:20 Constitutional: Positive for body aches, Negative for chills, fever, poor PO intake. cp 16:20 Eyes: Negative for injury, pain, redness, and discharge. cp 16:20 ENT: Negative for ear pain, sore throat, difficulty swallowing, difficulty handling secretions. 16:20 Cardiovascular: Negative for chest pain, edema, palpitations. 16:20 Respiratory: Positive for cough, with no reported sputum, shortness of breath, Negative for wheezing. 16:20 Abdomen/GI: Negative for abdominal pain, vomiting, diarrhea, constipation. 16:20 Neuro: Negative for altered mental status, headache, syncope, weakness. 16:20 All other systems are negative. Exam: 16:25 Constitutional: The patient appears in no acute distress, alert, awake, cp non-diaphoretic, non-toxic, well developed, well nourished, obese. 16:25 Head/Face: Normocephalic, atraumatic. cp 16:25 Eyes: Periorbital structures: appear normal, Conjunctiva: normal, no exudate, no injection, Sclera: no appreciated abnormality, Lids and lashes: appear normal, bilaterally. 16:25 ENT: External ear(s): are unremarkable, Nose: is normal, Mouth: Lips: moist, Oral mucosa: moist, Posterior pharynx: Airway: no evidence of obstruction, patent. 16:25 Neck: ROM/movement: is normal, is supple, without pain, no range of motions limitations, no meningismus. 16:25 Chest/axilla: Inspection: normal, Palpation: is normal, no crepitus, no tenderness. 16:25 Cardiovascular: Rate: normal, Rhythm: regular, Edema: is not appreciated, JVD: is not appreciated. 16:25 Respiratory: the patient does not display signs of respiratory distress, Respirations: labored breathing, is not present, shallow respirations, that is mild, Breath sounds: decreased breath sounds, that are mild, throughout, stridor, is not appreciated, wheezing: is not appreciated. 16:25 Abdomen/GI: Inspection: abdomen appears normal, Palpation: abdomen is soft and non-tender, in all quadrants. 16:25 Neuro: Orientation: to person, place \T\ time. Mentation: is normal, Cerebellar function: is grossly normal, Motor: moves all fours, strength is normal, Sensation: is normal. Vital Signs: 15:59 BP 120 / 70; Pulse 84; Resp 19; Temp 97.6; Pulse Ox 92% ; Weight 116.12 kg; Height 5 jl7 ft. 2 in. (157.48 cm); Pain 7/10; 20:05 BP 127 / 82; Pulse 78; Resp 20; Temp 98.2; Pulse Ox 93% ; lh3 06/20 04:09 BP 117 / 77; Pulse 61; Resp 20; Pulse Ox 97% ; tt3 06/19 15:59 Body Mass Index 46.82 (116.12 kg, 157.48 cm) jl7 MDM: 06/19 19:27 Patient medically screened. cp 21:05 Counseling: I had a detailed discussion with the patient and/or guardian regarding: the cp historical points, exam findings, and any diagnostic results supporting the discharge/admit diagnosis, lab results, the need for further work-up and treatment in the hospital. 21:05 Response to treatment: the patient's symptoms have mildly improved after treatment, and cp as a result, I will admit patient. 21:30 Data reviewed: vital signs, nurses notes, lab test result(s), EKG, radiologic studies, cp CT scan, plain films. 21:30 Test interpretation: by ED physician or midlevel provider: ECG, plain radiologic cp studies. 06/19 16:06 Order name: Basic Metabolic Panel cp 06/19 16:06 Order name: CBC with Diff; Complete Time: 20:31 cp 06/19 20:31 Interpretation: Normal except: RBC 4.89; RDW 15.5. cp 06/19 16:06 Order name: LFT's; Complete Time: 19:37 cp 06/19 16:06 Order name: Magnesium; Complete Time: 19:37 cp 06/19 16:06 Order name: NT PRO-BNP; Complete Time: 19:37 cp 06/19 16:06 Order name: PT-INR; Complete Time: 20:14 cp 06/19 16:06 Order name: Troponin (emerg Dept Use Only); Complete Time: 19:37 cp 06/19 16:06 Order name: CRP; Complete Time: 19:37 cp 06/19 16:06 Order name: Ferritin; Complete Time: 19:37 cp 06/19 16:06 Order name: D-Dimer; Complete Time: 20:14 cp 06/19 20:14 Interpretation: Abnormal: D-DIMER 862. cp 06/19 16:06 Order name: Basic Metabolic Panel; Complete Time: 19:37 EDMS 06/19 19:27 Order name: ABG; Complete Time: 20:36 cp 06/19 20:26 Order name: CBC Smear Scan; Complete Time: 20:31 EDMS 06/20 06:58 Order name: CBC with Automated Diff EDMS 06/20 07:15 Order name: Comprehensive Metabolic Panel EDMS 06/20 07:15 Order name: Phosphorus EDMS 06/20 07:15 Order name: Lipid Profile EDMS 06/20 07:15 Order name: C-Reactive Protein EDMS 06/20 07:15 Order name: T4 Free EDMS 06/20 07:15 Order name: Magnesium EDMS 08/13 07:15 Order name: Thyroid Stimulating Hormone EDNY 06/20 07:15 Order name: Ferritin EDNY 06/20 07:56 Order name: Procalcitonin EDNY 06/20 14:38 Order name: Glucose, Ancillary Testing EDNY 06/20 17:03 Order name: Glucose, Ancillary Testing EDNY 06/21 04:58 Order name: CBC with Automated Diff EDMS 06/21 05:22 Order name: Comprehensive Metabolic Panel EDNY 06/21 05:22 Order name: C-Reactive Protein EDNY 06/21 05:22 Order name: Magnesium EDMS 06/21 05:22 Order name: Ferritin EDNY 06/19 16:06 Order name: EKG; Complete Time: 16:06 cp 06/19 16:06 Order name: EKG - Nurse/Tech; Complete Time: 18:51 cp 06/19 16:06 Order name: XRAY Chest Pa And Lat (2 Views); Complete Time: 19:37 cp 06/19 16:06 Order name: Cardiac monitoring; Complete Time: 22:22 cp 06/19 16:06 Order name: IV Saline Lock; Complete Time: 18:51 cp 06/19 16:06 Order name: Labs collected and sent; Complete Time: 18:51 cp 06/19 16:06 Order name: O2 Per Protocol; Complete Time: 22:22 cp 06/19 16:06 Order name: O2 Sat Monitoring; Complete Time: 22:22 cp 06/19 20:15 Order name: CT Chest For PE Angio; Complete Time: 21:25 cp 06/19 21:25 Interpretation: Report reviewed. cp 06/19 20:59 Order name: CONS Physician Consult EDNY 06/19 21:47 Order name: Oxygen: 2 liters via NC; Complete Time: 22:02 cp 06/21 09:07 Order name: RAD [facility] Administered Medications: 20:36 Drug: SOLU-Medrol (methylPrednisoLONE) 125 mg Route: IVP; Site: right antecubital; lh3 20:36 Drug: NS 0.9% 500 ml Route: IV; Rate: bolus; Site: right antecubital; lh3 20:36 Drug: NS 0.9% 500 ml Route: IV; Rate: 100 ml/hr; Site: right antecubital; lh3 Disposition Summary: 06/19/21 21:02 Hospitalization Ordered Hospitalization Status: Inpatient Admission cp Condition: Stable cp Problem: new cp Symptoms: have improved cp Bed/Room Type: Standard cp Provider: Katherine Lanza(06/20/21 02:44) cp Location: Telemetry/MedSurg (Inpatient)(06/21/21 22:19) em Room Assignment: 415(06/21/21 22:19) em Diagnosis - SARS-associated coronavirus as the cause of diseases classified elsewhere cp - Other viral pneumonia cp Forms: - Medication Reconciliation Form cp - SBAR form cp Addendum: 06/23/2021 07:11 Co-signature as Attending Physician, Lobo Ware MD I agree with the assessment and k dr plan of care. Signatures: Dispatcher [employer] EDMS Lobo Ware MD MD [facility] Camilo Rodriguez, RN RN em Madison Godfrey RN RN tl1 Frank Dozier PA PA cp Fredrick Chatman RN RN jl7 Nelly Mccartney RN RN lh3 Corrections: (The following items were deleted from the chart) 06/19 20:31 20:31 Normal except: RBC 4.89. cp cp 22:50 21:02 Telemetry/MedSurg (Inpatient) cp tl1 22:50 21:02 cp tl1 06/20 02:44 06/19 21:02 Cornelio Nj cp cp 06/21 22:19 06/19 22:50 [facility] ER HOLD tl1 em 06/21 22:19 06/19 22:50 ERHOLD- tl1 em
--- NOTE | 2021-06-19 21:07 | RAD REPORT ---
EXAM DESCRIPTION: CT - Chest For Pe Angio - 06/19/2021 8:41 pm CLINICAL HISTORY: Chest pain;Cough COMPARISON: Chest For Pe Angio dated 07/28/2018; Chest Pa And Lat (2 Views) dated 06/19/2021 TECHNIQUE: Dynamically enhanced 3 mm thick images of the chest were obtained during administration o f approximately 150mL Isovue 370 IV contrast. Coronal and oblique MIP reconstruction images were gene rated and reviewed. Exam utilizes a protocol to evaluate the pulmonary arterial tree. All CT scans are performed using dose optimization technique as appropriate and may include automated exposure control or mA/KV adjustment according to patient size. FINDINGS: No pulmonary emboli are identified. The aorta as imaged shows no acute or suspicious finding. No pericardial thickening or effusion. Peripheral patchy ground-glass opacification present. This pattern along with the provided history wo uld indicate a COVID-19 pneumonia. Non COVID viral etiologies are also possible but lesser in likelih ood. No pleural effusion or pleural thickening. Hilar reactive type lymph nodes are present. Mediastinal lymph nodes are present also likely reactive . No chest wall masses or abnormal axillary lymphadenopathy. IMPRESSION: No pulmonary emboli identified. Mild COVID-19 pneumonia pattern.
[2021-06-19 22:30] VITALS: BMI 45.7
[2021-06-19] MEDS ORDERED: ACETAMINOPHEN 500 MG TAB PO PRN (22:31)
[2021-06-19] MEDS ORDERED: MELATONIN 5 MG TABLET PO PRN (22:31)
[2021-06-19] MEDS ORDERED: MORPHINE 2 MG/ML SYR IV PRN (22:31)
[2021-06-19] MEDS ORDERED: ALBUTEROL 2.5 MG/3 ML NEB SOL NEB PRN (22:31)
--- NOTE | 2021-06-19 23:14 | P.HP ---
Certification for Inpatient Patient admitted to: Observation With expected LOS: <2 Midnights Patient will require the following post-hospital care: None Practitioner: I am a practitioner with admitting privileges, knowledge of patient current condition, hospital course, and medical plan of care. Services: Services provided to patient in accordance with Admission requirements found in Title 42 Section 412.3 of the Code of Federal Regulations Patient History Date of Service: 06/19/21 Primary Care Provider: [facility] Reason for admission: covid pneumonia History of Present Illness: Ms. Coats is a 60 yo F with HTN and hypothyroidism who presents with cough and SOB. Her symptoms started last , and she tested positive for COVID on Wednesday. She reports pleuritic pain, wheezing, chills, nausea, vomiting and diarrhea. Has had poor appetite, fluid intake good. Came in otday for increased VINES, could not catch her breath when walking or talking. O2 sats at home in the 80s. CT scan showed mild covid-19 pneumonia pattern. D dimer 862, Ferritin 1008, CRP 80.5. Allergies Sulfa (Sulfonamide Antibiotics) [Sulfa(Sulfonamide Antibiotics)] Allergy (Verified 10/30/12 08:33) Hives - Past Medical/Surgical History Has patient received pneumonia vaccine in the past: No -: hypertension -: hypothyroidism -: back surgery -: knee surgery - Family History Brother -: Hypertension, Cancer Sister -: Cancer - Social History Smoking Status: Never smoker Alcohol use: No CD- Drugs: No Caffeine use: No Place of Residence: Home Review of Systems Respiratory: Cough, Shortness of Breath, SOB with Excertion, Pleuritic Pain, Wheezing Gastrointestinal: Nausea, Vomiting, Diarrhea Physical Examination - Physical Exam General: Alert, In no apparent distress HEENT: Atraumatic, PERRLA, Mucous membr. moist/pink, EOMI, Sclerae nonicteric Neck: Supple, 2+ carotid pulse no bruit, No LAD, Without JVD or thyroid abnormality Respiratory: Normal air movement, Rhonchi/gurgles Cardiovascular: Regular rate/rhythm, Normal S1 S2 Gastrointestinal: Normal bowel sounds, No tenderness Musculoskeletal: No tenderness Integumentary: No rashes Neurological: Normal speech, Normal strength at 5/5 x4 extr, Normal tone, Normal affect Lymphatics: No axilla or inguinal lymphadenopathy - Studies Laboratory Data (last 24 hrs) 06/19/21 18:46: PT 13.1 H, INR 1.14 06/19/21 18:46: WBC 8.60, Hgb 14.3, Hct 42.6, Plt Count 295 06/19/21 18:46: Sodium 134 L, Potassium 3.8, BUN 11, Creatinine 0.87, Glucose 110 H, Magnesium 2.1, Total Bilirubin 0.5, AST 48 H, ALT 76, Alkaline Phosphatase 122 H Assessment and Plan - Problems (Diagnosis) (1) Pneumonia due to COVID-19 virus Current Visit: Yes Status: Acute (2) HTN (hypertension) Current Visit: Yes Status: Chronic Qualifiers: Hypertension type: primary hypertension Qualified Code(s): I10 - Essential (primary) hypertension (3) Hypothyroidism Current Visit: Yes Status: Chronic Qualifiers: Hypothyroidism type: unspecified Qualified Code(s): E03.9 - Hypothyroidism, unspecified - Plan respiratory and pulm consulted daily room air sats, assess for home O2 IV steroids, covid supplements, ivermectin daily CRP, ferritin and procal antitussives and pain medication as needed reconcile and continue home medications DVT ppx Discharge Plan: Home Plan to discharge in: 24 Hours - Advance Directives Does patient have a Living Will: No Does patient have a Durable POA for Healthcare: No - Code Status/Comfort Care Code Status Assessed: Yes (full code ) Critical Care: No Time Spent Managing Pts Care (In Minutes): 70
[2021-06-19] MEDS ORDERED: FAMOTIDINE 20 MG TAB ONE (23:40)
[2021-06-19] MEDS ORDERED: METHYLPREDNISOLONE 40 MG INJ ONE (23:40)
[2021-06-20] MEDS: BENZONATATE 100 MG CAP PO PRN ×2 (00:19→18:24)
[2021-06-20] MEDS ORDERED: BENZONATATE 100 MG CAP PO ONE ×3 (00:47→22:09)
[2021-06-20 06:53] LABS: Absolute Lymphocytes (CBC) 0.8 K/uL (0.7-4.9); Basophils % 0.3 % (0-1.3); Hematocrit 38.4 % (36.0-45.0); Lymphocytes % 21.2 % (15.3-44.8); MPV 7.8 fL (7.6-11.3); RBC Red Blood Cell Count 4.44 M/uL (3.86-4.86)
[2021-06-20 07:15] LABS: ALT/SGPT 66 U/L (12-78); AST/SGOT 33 U/L (15-37); Albumin 3.4 g/dL (3.4-5.0); Alkaline Phosphatase 109 U/L (45-117); BUN Blood Urea Nitrogen 12 mg/dL (7-18); Bicarbonate 23 mmol/L (21-32); Bilirubin Total 0.3 mg/dL (0.2-1.0); Ferritin 931.9 ng/mL (8-388); Glucose Level 149 mg/dL (74-106); HDL Cholesterol 43 mg/dL (40-60); LDL Cholesterol, Calculated 67 (<130); Magnesium 2.2 mg/dL (1.8-2.4); Phosphorus 3.3 mg/dL (2.5-4.9); Potassium 3.9 mmol/L (3.5-5.1); Protein, Total 7.8 g/dL (6.4-8.2); Sodium Level 136 mmol/L (136-145)
[2021-06-20] MEDS ORDERED: IVERMECTIN 3 MG TABLET PO SCH ×2 (08:00→16:00)
[2021-06-20] MEDS ORDERED: FAMOTIDINE 20 MG TAB PO SCH (09:00)
[2021-06-20] MEDS ORDERED: METHYLPREDNISOLONE 125 MG INJ IV SCH (09:00)
--- NOTE | 2021-06-20 09:13 | P.PN ---
Subjective Date of Service: 06/20/21 Primary Care Provider: [facility] Chief Complaint: covid pneumonia Subjective: Other (Patient currently on 4 L per nasal cannula. Increase shortness of breath with exertion.) Physical Examination - Vital Signs Temperature: 98.5 F Blood Pressure: 117/73 Pulse: 61 Respirations: 20 Pulse Ox (%): 96 - Studies Laboratory Data (last 24 hrs) 06/19/21 18:46: PT 13.1 H, INR 1.14 06/19/21 18:46: WBC 8.60, Hgb 14.3, Hct 42.6, Plt Count 295 06/19/21 18:46: Sodium 134 L, Potassium 3.8, BUN 11, Creatinine 0.87, Glucose 110 H, Magnesium 2.1, Total Bilirubin 0.5, AST 48 H, ALT 76, Alkaline Phosphatase 122 H Assessment & Plan Discharge Plan: Home Plan to discharge in: 72 Hours Physician Review Additional Text: COVID: Positive, unvaccinated Initial Chest x-ray: COMPARISON: Two view chest May 19 TECHNIQUE: Frontal and lateral views of the chest were obtained. FINDINGS: The lungs are normal volume. Since prior imaging interstitial and alveolar opacities have developed in the lower lung shay. Given the provided history this is most likely a mild bilateral COVID-19 pneumonia. Trachea is midline. Heart size is normal and central vasculature is within normal limits. No pleural effusion or pneumothorax seen. No acute bony finding noted. No aortic abnormality. IMPRESSION: Mild bilateral COVID-[address] scan: COMPARISON: Chest For Pe Angio dated 07/28/2018; Chest Pa And Lat (2 Views) dated 06/19/2021 TECHNIQUE: Dynamically enhanced 3 mm thick images of the chest were obtained during administration of approximately 150mL Isovue 370 IV contrast. Coronal and oblique MIP reconstruction images were generated and reviewed. Exam utilizes a protocol to evaluate the pulmonary arterial tree. All CT scans are performed using dose optimization technique as appropriate and may include automated exposure control or mA/KV adjustment according to patient size. FINDINGS: No pulmonary emboli are identified. The aorta as imaged shows no acute or suspicious finding. No pericardial thickening or effusion. Peripheral patchy ground-glass opacification present. This pattern along with the provided history would indicate a COVID-19 pneumonia. Non COVID viral etiologies are also possible but lesser in likelihood. No pleural effusion or pleural thickening. Hilar reactive type lymph nodes are present. Mediastinal lymph nodes are present also likely reactive. No chest wall masses or abnormal axillary lymphadenopathy. IMPRESSION: No pulmonary emboli identified. Mild COVID-19 pneumonia pattern. Physical exam: General: Alert, In no apparent distress HEENT: Atraumatic, PERRLA, Mucous membr. moist/pink, EOMI, Sclerae nonicteric Neck: Supple Respiratory: Slightly decreased. Currently on 4 L per nasal cannula Cardiovascular: Regular rate/rhythm, Normal S1 S2 Gastrointestinal: Normal bowel sounds, No tenderness Musculoskeletal: No tenderness Integumentary: No rashes Neurological: Normal speech, Normal strength at 5/5 x4 extr, Normal tone, Normal affect Lymphatics: No axilla or inguinal lymphadenopathy Impression: Dyspnea secondary to bilateral Covid pneumonia with hypoxia HTN Hypothyroidism Obesity, BMI 45.7 Plan: Dyspnea secondary to bilateral Covid pneumonia with hypoxia: Patient remains hospitalized. Currently on 4 L per nasal cannula. Continue to wean off. Respiratory to maintain sats above 93%. Continue with IV steroids. Will adjust accordingly. Continue with ivermectin and vitamin supplementation. Patient likely a candidate for baricitinib if needed. Education on baricitinib addressed in detail. Pulmonology consulted. Await recommendations. Continue to monitor CRP, ferritin and chest x-ray. Encourage incentive spirometer, ambulation, proning. Patient on Xarelto for DVT prophylaxis and due to elevated D-dimer. Will provide medication for cough. We will continue to monitor and assess daily. Likely home in the next 72 hours. HTN: Obtain and and verify home medication. Blood pressure stable off medication at this time. We will continue to monitor. Hypothyroidism: Need to obtain and restart home medication Obesity, BMI 45.7: Address lifestyle modification education CODE STATUS: Full code DVT prophylaxis: Lovenox Advance care [id number] minutes: Home at discharge Time Spent Managing Pts Care (In Minutes): 55
[2021-06-20] MEDS: VITAMIN D 1000 UNIT TAB PO SCH (10:16)
[2021-06-20] MEDS: ZINC SULFATE 220 MG CAP PO SCH (10:16)
[2021-06-20] MEDS: THIAMINE HCL 100 MG TABLET PO SCH (10:16)
[2021-06-20] MEDS: ASCORBIC ACID 500 MG TABLET PO SCH ×4 (10:16→21:00)
[2021-06-20] MEDS ORDERED: ASCORBIC ACID 500 MG TABLET ONE ×4 (10:28→23:02)
[2021-06-20] MEDS ORDERED: VITAMIN D 1000 UNIT TAB ONE (10:29)
[2021-06-20] MEDS ORDERED: THIAMINE HCL 100 MG TABLET ONE (10:29)
[2021-06-20] MEDS ORDERED: ZINC SULFATE 220 MG CAP ONE (10:29)
[2021-06-20] MEDS: ONDANSETRON 4 MG/2 ML VIAL IV PRN (12:00)
[2021-06-20] MEDS: METHYLPREDNISOLONE 125 MG INJ IV SCH ×2 (14:00→21:00)
[2021-06-20] MEDS ORDERED: METHYLPREDNISOLONE 40 MG INJ ONE ×2 (15:01→23:02)
[2021-06-20] MEDS: RIVAROXABAN 20 MG TABLET PO SCH (17:00)
[2021-06-20] MEDS ORDERED: RIVAROXABAN 10 MG TABLET PO SCH (17:00)
[2021-06-20] MEDS ORDERED: RIVAROXABAN 20 MG TABLET PO ONE (18:33)
[2021-06-20] MEDS ORDERED: PANTOPRAZOLE 40 MG INJ ONE (20:07)
[2021-06-20] MEDS ORDERED: OCTREOTIDE ACETATE 100 MCG/ML ONE (20:08)
[2021-06-20] MEDS ORDERED: MELATONIN 5 MG TABLET PO ONE (22:07)
[2021-06-21 04:45] LABS: Basophils % 0.7 % (0-1.3); Hematocrit 37.5 % (36.0-45.0); Lymphocytes % 14.2 % (15.3-44.8); MPV 7.9 fL (7.6-11.3); RBC Red Blood Cell Count 4.36 M/uL (3.86-4.86)
[2021-06-21] MEDS: BENZONATATE 100 MG CAP PO PRN (05:17)
[2021-06-21 05:21] LABS: Albumin 3.2 g/dL (3.4-5.0); Bilirubin Total 0.3 mg/dL (0.2-1.0); C-Reactive Protein 40.6 mg/L (<3.00); Ferritin 959.5 ng/mL (8-388); Magnesium 2.3 mg/dL (1.8-2.4); Potassium 3.8 mmol/L (3.5-5.1); Protein, Total 7.3 g/dL (6.4-8.2)
[2021-06-21] MEDS ORDERED: BENZONATATE 100 MG CAP PO ONE (05:39)
--- NOTE | 2021-06-21 08:01 | P.PN ---
Subjective Date of Service: 06/21/21 Primary Care Provider: [facility] [address] Chief Complaint: covid pneumonia Subjective: Other (Slow improvement noted. Currently on 3 L per nasal cannula. Still with significant drops of oxygen when ambulating.) Physical Examination - Vital Signs Temperature: 97.8 F Blood Pressure: 118/68 Pulse: 56 Respirations: 18 Pulse Ox (%): 97 Assessment & Plan Discharge Plan: Home Plan to discharge in: 48 Hours Physician Review Additional Text: COVID: Positive, unvaccinated Initial Chest x-ray: COMPARISON: Two view chest May 19 TECHNIQUE: Frontal and lateral views of the chest were obtained. FINDINGS: The lungs are normal volume. Since prior imaging interstitial and alveolar opacities have developed in the lower lung shay. Given the provided history this is most likely a mild bilateral COVID-19 pneumonia. Trachea is midline. Heart size is normal and central vasculature is within normal limits. No pleural effusion or pneumothorax seen. No acute bony finding noted. No aortic abnormality. IMPRESSION: Mild bilateral COVID-[address] scan: COMPARISON: Chest For Pe Angio dated 07/28/2018; Chest Pa And Lat (2 Views) dated 06/19/2021 TECHNIQUE: Dynamically enhanced 3 mm thick images of the chest were obtained during administration of approximately 150mL Isovue 370 IV contrast. Coronal and oblique MIP reconstruction images were generated and reviewed. Exam utilizes a protocol to evaluate the pulmonary arterial tree. All CT scans are performed using dose optimization technique as appropriate and may include automated exposure control or mA/KV adjustment according to patient size. FINDINGS: No pulmonary emboli are identified. The aorta as imaged shows no acute or suspicious finding. No pericardial thickening or effusion. Peripheral patchy ground-glass opacification present. This pattern along with the provided history would indicate a COVID-19 pneumonia. Non COVID viral etiologies are also possible but lesser in likelihood. No pleural effusion or pleural thickening. Hilar reactive type lymph nodes are present. Mediastinal lymph nodes are present also likely reactive. No chest wall masses or abnormal axillary lymphadenopathy. IMPRESSION: No pulmonary emboli identified. Mild COVID-19 pneumonia pattern. Physical exam: General: Alert, In no apparent distress HEENT: Atraumatic, PERRLA, Mucous membr. moist/pink, EOMI, Sclerae nonicteric Neck: Supple Respiratory: Still decreased at the bases. Currently on 3 L per nasal cannula. Cardiovascular: Regular rate/rhythm, Normal S1 S2 Gastrointestinal: Normal bowel sounds, No tenderness Musculoskeletal: No tenderness Integumentary: No rashes Neurological: Normal speech, Normal strength at 5/5 x4 extr, Normal tone, Normal affect Lymphatics: No axilla or inguinal lymphadenopathy Impression: Dyspnea secondary to bilateral Covid pneumonia with hypoxia HTN Hypothyroidism Obesity, BMI 45.7 Plan: Dyspnea secondary to bilateral Covid pneumonia with hypoxia: Overall patient using less oxygen at 3 L per nasal cannula. Still with significant desaturations with exertion. Physical therapy assess ambulation. Continue to wean off oxygen. CRP improved. Continue with IV steroids and vitamin supplementation. Patient may require baricitinib if her condition declines and she requires more oxygen. Will discuss with pulmonology. Await recommendations. Continue to monitor CRP, ferritin and chest x-ray. Encourage incentive spirometer, ambulation, proning. Patient on Xarelto for DVT prophylaxis and due to elevated D-dimer. Will provide Robitussin with codeine to help with cough. Discontinue Tessalon Perles. Will continue to monitor and assess daily. Likely home in the next 48 hours if the patient can ambulate without significant desaturation. HTN: Obtain and and verify home medication. Blood pressure stable off medication at this time. We will continue to monitor blood pressure without the use of medication. Hypothyroidism: Need to obtain and restart home medication Obesity, BMI 45.7: Address lifestyle modification education CODE STATUS: Full code DVT prophylaxis: Xarelto Advance care [id number] minutes: Home at discharge Time Spent Managing Pts Care (In Minutes): 55
[2021-06-21] MEDS: FAMOTIDINE 20 MG TAB PO SCH (09:00)
[2021-06-21] MEDS: THIAMINE HCL 100 MG TABLET PO SCH (09:00)
[2021-06-21] MEDS: ZINC SULFATE 220 MG CAP PO SCH (09:00)
[2021-06-21] MEDS: METHYLPREDNISOLONE 125 MG INJ IV SCH ×3 (09:00→21:00)
[2021-06-21] MEDS: VITAMIN D 1000 UNIT TAB PO SCH (09:00)
[2021-06-21] MEDS: ASCORBIC ACID 500 MG TABLET PO SCH ×4 (09:00→21:00)
--- NOTE | 2021-06-21 09:06 | RAD REPORT ---
EXAM DESCRIPTION: RAD - Chest Single View - 06/21/2021 7:00 am CLINICAL HISTORY: follow up COVIDpneumonia COMPARISON: CT chest June 19, two view chest June 19 TECHNIQUE: AP portable chest image was obtained 06/21/2021 7:00 am . FINDINGS: Lung volumes are reduced compared to the June 19 chest examination. This accentuates the underlying interstitial and alveolar opacities. When adjusting for the lower lung volumes, extent of lung disease is not substantially different. Heart and vasculature are normal. No measurable pleural effusion and no pneumothorax. No acute bony abnormality seen. No acute aortic findings suspected. IMPRESSION: Bilateral pneumonia not substantially different from comparison.
[2021-06-21] MEDS ORDERED: METHYLPREDNISOLONE 125 MG INJ ONE ×2 (09:11→15:14)
[2021-06-21] MEDS ORDERED: FAMOTIDINE 20 MG/2 ML VIAL IV ONE (09:12)
[2021-06-21] MEDS ORDERED: VITAMIN D 1000 UNIT TAB ONE (09:12)
[2021-06-21] MEDS ORDERED: THIAMINE HCL 100 MG TABLET ONE (09:12)
[2021-06-21] MEDS ORDERED: ZINC SULFATE 220 MG CAP ONE (09:12)
[2021-06-21] MEDS ORDERED: ASCORBIC ACID 500 MG TABLET ONE ×4 (09:12→22:32)
[2021-06-21] MEDS: TRAMADOL HCL 50 MG TAB PO PRN (09:40)
[2021-06-21] MEDS: GUAIFENESIN/CODEINE 5ML UCUP PO PRN ×2 (09:40→13:45)
[2021-06-21] MEDS ORDERED: GUAIFENESIN/CODEINE 5ML UCUP ONE ×2 (09:59→14:06)
[2021-06-21] MEDS ORDERED: TRAMADOL HCL 50 MG TAB ONE (09:59)
[2021-06-21] MEDS: RIVAROXABAN 20 MG TABLET PO SCH (17:00)
[2021-06-21] MEDS ORDERED: METHYLPREDNISOLONE 40 MG INJ ONE (22:32)
[2021-06-22] MEDS: GUAIFENESIN/CODEINE 5ML UCUP PO PRN ×2 (00:32→10:17)
[2021-06-22] MEDS: TRAMADOL HCL 50 MG TAB PO PRN (00:32)
[2021-06-22 03:57] LABS: Absolute Lymphocytes (CBC) 1.2 K/uL (0.7-4.9); Basophils % 0.3 % (0-1.3); Hematocrit 36.3 % (36.0-45.0); MPV 8.1 fL (7.6-11.3); RBC Red Blood Cell Count 4.18 M/uL (3.86-4.86)
[2021-06-22 04:20] LABS: ALT/SGPT 45 U/L (12-78); AST/SGOT 19 U/L (15-37); Albumin 3.1 g/dL (3.4-5.0); Alkaline Phosphatase 96 U/L (45-117); BUN Blood Urea Nitrogen 21 mg/dL (7-18); Bicarbonate 25 mmol/L (21-32); Bilirubin Total 0.3 mg/dL (0.2-1.0); Ferritin 855.4 ng/mL (8-388); Glucose Level 158 mg/dL (74-106); Magnesium 2.2 mg/dL (1.8-2.4); Protein, Total 6.9 g/dL (6.4-8.2); Sodium Level 141 mmol/L (136-145)
--- NOTE | 2021-06-22 06:16 | P.PN ---
Subjective Date of Service: 06/22/21 Primary Care Provider: [facility] Chief Complaint: covid pneumonia Subjective: Improving, Doing well Physical Examination - Vital Signs Temperature: 97.2 F Blood Pressure: 114/64 Pulse: 52 Respirations: 18 Pulse Ox (%): 93 Assessment & Plan Discharge Plan: Home Physician Review Additional Text: COVID: Positive, unvaccinated Initial Chest x-ray: COMPARISON: Two view chest May 19 TECHNIQUE: Frontal and lateral views of the chest were obtained. FINDINGS: The lungs are normal volume. Since prior imaging interstitial and alveolar opacities have developed in the lower lung shay. Given the provided history this is most likely a mild bilateral COVID-19 pneumonia. Trachea is midline. Heart size is normal and central vasculature is within normal limits. No pleural effusion or pneumothorax seen. No acute bony finding noted. No aortic abnormality. IMPRESSION: Mild bilateral COVID-[address] scan: COMPARISON: Chest For Pe Angio dated 07/28/2018; Chest Pa And Lat (2 Views) dated 06/19/2021 TECHNIQUE: Dynamically enhanced 3 mm thick images of the chest were obtained during administration of approximately 150mL Isovue 370 IV contrast. Coronal and oblique MIP reconstruction images were generated and reviewed. Exam utilizes a protocol to evaluate the pulmonary arterial tree. All CT scans are performed using dose optimization technique as appropriate and may include automated exposure control or mA/KV adjustment according to patient size. FINDINGS: No pulmonary emboli are identified. The aorta as imaged shows no acute or suspicious finding. No pericardial thickening or effusion. Peripheral patchy ground-glass opacification present. This pattern along with the provided history would indicate a COVID-19 pneumonia. Non COVID viral etiologies are also possible but lesser in likelihood. No pleural effusion or pleural thickening. Hilar reactive type lymph nodes are present. Mediastinal lymph nodes are present also likely reactive. No chest wall masses or abnormal axillary lymphadenopathy. IMPRESSION: No pulmonary emboli identified. Mild COVID-19 pneumonia pattern. Physical exam: General: Alert, In no apparent distress HEENT: Atraumatic, PERRLA, Mucous membr. moist/pink, EOMI, Sclerae nonicteric Neck: Supple Respiratory: Still decreased at the bases. Currently on 3 L per nasal cannula. Cardiovascular: Regular rate/rhythm, Normal S1 S2 Gastrointestinal: Normal bowel sounds, No tenderness Musculoskeletal: No tenderness Integumentary: No rashes Neurological: Normal speech, Normal strength at 5/5 x4 extr, Normal tone, Normal affect Lymphatics: No axilla or inguinal lymphadenopathy Impression: Dyspnea secondary to bilateral Covid pneumonia with hypoxia HTN Hypothyroidism Obesity, BMI 45.7 Plan: Dyspnea secondary to bilateral Covid pneumonia with hypoxia: Patient doing well. Ambulating with appropriate status. No significant desaturations. Recovers very well. We will plan for discharge today. HTN: Obtain and and verify home medication. Blood pressure stable off medication at this time. We will continue to monitor blood pressure without the use of medication. Hypothyroidism: Need to obtain and restart home medication Obesity, BMI 45.7: Address lifestyle modification education CODE STATUS: Full code DVT prophylaxis: Xarelto Advance care [id number] minutes: Home at discharge Time Spent Managing Pts Care (In Minutes): 55
[2021-06-22] MEDS: FAMOTIDINE 20 MG TAB PO SCH (09:18)
[2021-06-22] MEDS: VITAMIN D 1000 UNIT TAB PO SCH (09:18)
[2021-06-22] MEDS: THIAMINE HCL 100 MG TABLET PO SCH (09:18)
[2021-06-22] MEDS: ASCORBIC ACID 500 MG TABLET PO SCH ×2 (09:18→13:42)
[2021-06-22] MEDS: ZINC SULFATE 220 MG CAP PO SCH (09:18)
[2021-06-22] MEDS: METHYLPREDNISOLONE 125 MG INJ IV SCH ×2 (09:18→13:42)
[2021-06-22] MEDS: ONDANSETRON 4 MG/2 ML VIAL IV PRN (10:17)
[2021-06-22 12:28] VITALS: O2SAT 95
--- NOTE | 2021-06-22 13:01 | P.CNS ---
Date of Consult: 06/22/21 Primary Care Provider: [facility] Chief Complaint: covid pneumonia History of Present Illness: Age 60 AW COVID pneumonia/ improving Allergies Sulfa (Sulfonamide Antibiotics) [Sulfa(Sulfonamide Antibiotics)] Allergy (Verified 10/30/12 08:33) Hives Home Medications: Albuterol Sulfate [Proair Hfa] 2 puff IH Q4HR PRN 06/21/21 Benzonatate [Tessalon Perle*] 100 mg PO TID 06/21/21 Budesonide [Pulmicort Flexhaler] 2 puff IH BID 06/21/21 Fluticasone [Flonase 50MCG Nasal [place]*] 2 puff IH TID 06/21/21 Pregabalin 75 mg PO BEDTIME 06/21/21 Valsartan/Hydrochlorothiazide [Valsartan-Hctz 160-25 mg Tab] 1 tab PO DAILY 06/21/21 - Past Medical/Surgical History -: hypertension -: hypothyroidism -: back surgery -: knee surgery - Family History Brother Medical History: Hypertension, Cancer Sister Medical History: Cancer - Social History Smoking Status: Never smoker Alcohol use: No CD- Drugs: No Caffeine use: No Place of Residence: Home Review of Systems General: Weakness Respiratory: Shortness of Breath Physical Examination Temp Pulse Resp BP Pulse Ox 97.0 F 47 L 29 H 122/62 94 06/22/21 08:00 06/22/21 08:00 06/22/21 08:00 06/22/21 08:00 06/22/21 08:00 General: Alert, In no apparent distress, Oriented x3 - Problems (1) Pneumonia due to COVID-19 virus Current Visit: Yes Status: Acute Plan: doign better plan for discharge. CT minimal changes/labs rev
[2021-06-22 13:34] VITALS: BP 114/64; TEMP 97.2
--- NOTE | 2021-06-22 13:35 | P.DS ---
Admission Date: 06/19/21 Discharge Date: 06/22/21 Primary Care Provider: [facility] Disposition: ROUTINE DISCHARGE Discharge Condition: GOOD Reason for Admission: covid pneumonia Consultations: Pulmonary-Dr. Gil Procedures: COVID: Positive, unvaccinated Initial Chest x-ray: COMPARISON: Two view chest May 19 TECHNIQUE: Frontal and lateral views of the chest were obtained. FINDINGS: The lungs are normal volume. Since prior imaging interstitial and alveolar opacities have developed in the lower lung shay. Given the provided history this is most likely a mild bilateral COVID-19 pneumonia. Trachea is midline. Heart size is normal and central vasculature is within normal limits. No pleural effusion or pneumothorax seen. No acute bony finding noted. No aortic abnormality. IMPRESSION: Mild bilateral COVID-[address] scan: COMPARISON: Chest For Pe Angio dated 07/28/2018; Chest Pa And Lat (2 Views) dated 06/19/2021 TECHNIQUE: Dynamically enhanced 3 mm thick images of the chest were obtained during administration of approximately 150mL Isovue 370 IV contrast. Coronal and oblique MIP reconstruction images were generated and reviewed. Exam utilizes a protocol to evaluate the pulmonary arterial tree. All CT scans are performed using dose optimization technique as appropriate and may include automated exposure control or mA/KV adjustment according to patient size. FINDINGS: No pulmonary emboli are identified. The aorta as imaged shows no acute or suspicious finding. No pericardial thickening or effusion. Peripheral patchy ground-glass opacification present. This pattern along with the provided history would indicate a COVID-19 pneumonia. Non COVID viral etiologies are also possible but lesser in likelihood. No pleural effusion or pleural thickening. Hilar reactive type lymph nodes are present. Mediastinal lymph nodes are present also likely reactive. No chest wall masses or abnormal axillary lymphadenopathy. IMPRESSION: No pulmonary emboli identified. Mild COVID-19 pneumonia pattern. Medical problem list: Dyspnea secondary to bilateral Covid pneumonia with hypoxia HTN Hypothyroidism Obesity, BMI 45.7 Brief History of Present Illness: 60-year-old female presented with cough, shortness of breath. Patient was positive for Covid on Wednesday. Patient found to be hypoxic. Patient admitted for treatment. Hospital Course: Patient presented with dyspnea secondary to bilateral Covid pneumonia with hypoxia. Patient was admitted for treatment. Patient received IV steroids and supplementation. Her condition improved. Patient currently stable on 2 to 3 L per nasal cannula. Patient without significant shortness of breath. At discharge patient will continue with home oxygen to maintain sats above 93%. Patient currently on 3 L per nasal cannula. Patient will need to decrease her activities for now. Patient will continue with prednisone 20 mg 1 pill twice daily for 7 days then 1 pill once daily for 7 days. The patient will continue with aspirin 81 mg daily. The patient will be provided Robitussin with codeine 5 mL 3 times a day as needed for cough. The patient will also continue with zinc 220 mg 1 pill daily, thiamine 100 mg 1 pill twice daily, vitamin C 500 mg 1 pill 3 times a day, and vitamin D 2000 units daily. Patient will continue with CDC guidelines on isolation. Patient will continue with incentive spirometer, proning, and ambulation at home. Recommend to continue facemask use, handwashing and social distancing. Recommend follow-up with PCP within 1 week to follow-up this hospitalization. Recommend follow-up with pulmonology within 1 week to follow-up his hospitalization. Pulmonology will help patient wean off oxygen. Patient with hypertension. Blood pressure stable off medication at this time. Recommend to discontinue blood pressure medication at discharge. Recommend to monitor blood pressure closely. Recommend to maintain blood pressure less than 130/80. If blood pressure remains above 140/90 patient may need to be restarted back on her blood pressure medication. This can be done with the help of her PCP. Patient with hypothyroidism. At discharge patient will continue with her medication. Vital Signs/Physical Exam: Temp Pulse Resp BP Pulse Ox 97.2 F 52 18 114/64 93 06/22/21 13:34 06/22/21 13:34 06/22/21 13:34 06/22/21 13:34 06/22/21 13:34 General: Alert, In no apparent distress, Oriented x3, Cooperative HEENT: Atraumatic Neck: Supple Respiratory: Clear to auscultation bilaterally, Normal air movement, Other (Currently on 3 L per nasal cannula) Cardiovascular: Normal pulses, Regular rate/rhythm Gastrointestinal: Normal bowel sounds, No tenderness, No masses, No rebound, No guarding Musculoskeletal: No erythema, No tenderness, No warmth Integumentary: No tenderness/swelling, No erythema, No warmth, No cyanosis Neurological: Normal speech, Normal strength at 5/5 x4 extr, Normal tone, Normal affect Laboratory Data at Discharge: WBC 8.30 K/uL (4.3-10.9) 06/22/21 02:59 Hgb 12.3 g/dL (12.0-15.0) 06/22/21 02:59 Hct 36.3 % (36.0-45.0) 06/22/21 02:59 Plt Count 355 K/uL (152-406) 06/22/21 02:59 PT 13.1 SECONDS (9.5-12.5) H 06/19/21 18:46 INR 1.14 06/19/21 18:46 Sodium 141 mmol/L (136-145) 06/22/21 02:59 Potassium 4.0 mmol/L (3.5-5.1) 06/22/21 02:59 BUN 21 mg/dL (7-18) H 06/22/21 02:59 Creatinine 0.64 mg/dL (0.55-1.3) 06/22/21 02:59 Glucose 158 mg/dL (74-106) H 06/22/21 02:59 Phosphorus 3.3 mg/dL (2.5-4.9) 06/20/21 05:47 Magnesium 2.2 mg/dL (1.8-2.4) 06/22/21 02:59 Total Bilirubin 0.3 mg/dL (0.2-1.0) 06/22/21 02:59 AST 19 U/L (15-37) 06/22/21 02:59 ALT 45 U/L (12-78) 06/22/21 02:59 Alkaline Phosphatase 96 U/L (45-117) 06/22/21 02:59 Triglycerides 78 mg/dL (<150) 06/20/21 05:47 Cholesterol 126 mg/dL (<200) 06/20/21 05:47 HDL Cholesterol 43 mg/dL (40-60) 06/20/21 05:47 Cholesterol/HDL Ratio 2.93 06/20/21 05:47 Home Medications: Ascorbic Acid [Vitamin C*] 500 mg PO TID #90 tablet 06/22/21 Aspirin [Aspirin EC 81 MG] 81 mg PO DAILY #90 tablet. 06/22/21 Cholecalciferol (Vitamin D3) [Vitamin D 1000 Iu Tab*] 2,000 unit PO DAILY #60 tab 06/22/21 Guaifen W/Codeine Syrup [ROBITUSSIN A-C Syrup*] 5 ml PO TID PRN #1 bottle 06/22/21 Thiamine HCl [Vitamin B-1*] 200 mg PO DAILY #60 tablet 06/22/21 Zinc Sulfate [Zinc Sulfate*] 220 mg PO DAILY #30 cap 06/22/21 predniSONE [Prednisone*] 20 mg PO SEECOM #21 tab 06/22/21 New Medications: Aspirin [Aspirin EC 81 MG] 81 mg PO DAILY #90 tablet. predniSONE [Prednisone*] 20 mg PO SEECOM #21 tab Guaifen W/Codeine Syrup [ROBITUSSIN A-C Syrup*] 5 ml PO TID PRN #1 bottle PRN Reason: Cough Thiamine HCl [Vitamin B-1*] 200 mg PO DAILY #60 tablet Ascorbic Acid [Vitamin C*] 500 mg PO TID #90 tablet Cholecalciferol (Vitamin D3) [Vitamin D 1000 Iu Tab*] 2,000 unit PO DAILY #60 tab Zinc Sulfate [Zinc Sulfate*] 220 mg PO DAILY #30 cap Physician Discharge Instructions: Patient presented with dyspnea secondary to bilateral Covid pneumonia with hypoxia. Patient was admitted for treatment. Patient received IV steroids and supplementation. Her condition improved. Patient currently stable on 2 to 3 L per nasal cannula. Patient without significant shortness of breath. At discharge patient will continue with home oxygen to maintain sats above 93%. Patient currently on 3 L per nasal cannula. Patient will need to decrease her activities for now. Patient will continue with prednisone 20 mg 1 pill twice daily for 7 days then 1 pill once daily for 7 days. The patient will continue with aspirin 81 mg daily. The patient will be provided Robitussin with codeine 5 mL 3 times a day as needed for cough. The patient will also continue with zinc 220 mg 1 pill daily, thiamine 100 mg 1 pill twice daily, vitamin C 500 mg 1 pill 3 times a day, and vitamin D 2000 units daily. Patient will continue with CDC guidelines on isolation. Patient will continue with incentive spirometer, proning, and ambulation at home. Recommend to continue facemask use, handwashing and social distancing. Recommend follow-up with PCP within 1 week to follow-up this hospitalization. Recommend follow-up with pulmonology within 1 week to follow-up his hospitalization. Pulmonology will help patient wean off oxygen. Patient with hypertension. Blood pressure stable off medication at this time. Recommend to discontinue blood pressure medication at discharge. Recommend to monitor blood pressure closely. Recommend to maintain blood pressure less than 130/80. If blood pressure remains above 140/90 patient may need to be restarted back on her blood pressure medication. This can be done with the help of her PCP. Patient with hypothyroidism. At discharge patient will continue with her medication. Diet: AHA Activity: Ad sumeet Followup: ZENA FREITAS [Primary Care Provider] - Time spent managing pt's care (in minutes): 55
== END 2021-06-22 14:35 | disposition home or self-care (01) | DRG 177 ==
LOC: ER 15:33 → ERHOLD 21:00 → 4TH 06-21 22:59
PROVIDERS: ADMIT Hospitalist; ATTEND Hospitalist
DX: U07.1 COVID-19 (principal); J12.82 Pneumonia due to coronavirus disease 2019; Z68.42 Body mass index [BMI] 45.0-49.9, adult; R09.02 Hypoxemia; I10 Essential (primary) hypertension; E03.9 Hypothyroidism, unspecified; E66.9 Obesity, unspecified; Z88.2 Allergy status to sulfonamides
CPT/HCPCS: 36415; 71045; 71046; 71275; 80048; 80053; 80061; 80076; 82728; 82805; 82947; 83735; 83880; 84100; 84145; 84439; 84443; 84484; 85025; 85379; 85610; 86140; 93005; 94010; 94760; 96374; 97110; 97161; 97530; 99285; C9113; J2354; J2405; J2920; J2930; J7040; Q9967

== ENCOUNTER 2023-06-22 10:07 | Emergency (ER) | payer OTHER ==
--- OUTSIDE RECORDS SUMMARY | 2023-06-22 10:16 | XMS REPORT | Continuity of Care Document ---
:1960 Author Organization [facility] t Address [address] [place] [address] [place] [id number] Care Team Providers Name Role Phone Sharpless Primary Care Physician FLORENCE PALM Attending Clinician Unavailable Sage Pelayo MD Attending Clinician [phone] Caesar Snider MD Attending Clinician Florence Palm MD Attending Clinician Larisa Phoenix MD Attending Clinician SAGE PELAYO Attending Clinician Unavailable DOLORES TOPETE Attending Clinician Unavailable Emily Attending Clinician Unavailable Jarred MACHUCA, Jenelle Attending Clinician Unavailable Jemal Jacobs MD Attending Clinician Ad Quintana DO Attending Clinician Silvia Panda APRN Attending Clinician Nurse, Patrice Urgent Attending Clinician Unavailable Lab, Adc Fam Pob I Attending Clinician Unavailable Sheron Bermudez Attending Clinician SHERON LEIGH Attending Clinician Unavailable Doctor Unassigned, Woodman Attending Clinician Unavailable CAESAR SNIDER Admitting Clinician Unavailable Emily Admitting Clinician Unavailable JEMAL JACOBS Admitting Clinician Unavailable Payers Payer Name Policy Type Policy Number Effective Date Expiration Date S ricardo DUNN HMO POS [id number] 2022 00:00:00 QPOS [employer] - CHOICE [id number] 2022 00:00:00 (POS II) Problems Condition Condition Condition Status Onset Resolution Last Treating Co mments Source Name Details Category Date Date Treatment Clinician Date Chest Chest Disease Active [facility]ifie unspecifie 00:00: Me dical d type d type 00 Center Urinary Urinary Problem Active [facility] tract Tract 6-05 [facility] infectious Infectious 00:00: Ur ology disease Disease 00 History of History of Problem [place] 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 00 Right Right Disease Active [facility] renal mass renal mass [facility] 00[facility]: [facility]osp[facility] 00 l Renal mass Renal Mass Problem Active [place] [facility] 00:00: Urology 00 Body mass Body Mass Problem Active [facility] ston index 40+ Index 40+ 7-05 [facility] - severely - Severely 00:00: Ur ology obese Obese 00 Advance Advance Problem Active [facility] Care [facility] planning Planning 00:00: Urolog y 00 Allergies, Adverse Reactions, Alerts Allergy Allergy Status Severity Reaction(s) Onset Inactive Treating Comm ents Source Name Type Date Date Clinician Sulfa Propensi Active Hives [facility] (Sulfona ty to [facility] mide adverse 00:00: Hospita Antibiot reaction 00 l ics) s to drug SULFA Allergy Active Hives [facility] 00:[facility]: Medical ANTIBIOT 00 Center ICS) Sulfa Drug Active Hives [facility] ([facility] 00:[facility]: Medical Antibiot 00 Center ics) BROMSULP Allergy [facility] e NO KNOWN Drug Active [facility] ALLERGIE Class ity of S [facility] Family History Family Member Diagnosis Comments Start Date Stop Date Source Natural brother [facility] Natural brother Coronary artery [facility] disease Natural brother [facility] Natural father Cancer [facility] Natural father Suicide Attempts Meth [facility] Natural mother [facility] Natural sister Cancer [facility] Natural sister Lung cancer [facility] Natural sister Breast cancer [facility] Social History Social Habit Start Date Stop Date Quantity Comments Source Gender identity [facility] Exposure to 2023-06-04 2023-06-14 Not sure [facility] SARS-CoV-2 (event) 00:00:00 12:00:00 [facility] Tobacco use and 2023-06-14 2023-06-14 Smokeless [facility] exposure 00:00:00 00:00:00 tobacco non-user [facility] History of Social 2023-01-12 2023-01-[address] function 00:00:00 00:00:00 Hospital Alcohol intake 2022-07-23 2022-07-23 Current drinker [facility] 00:00:00 00:00:00 of [facility] (finding) Alcohol Comment 2022-07-13 2022-07-13 very rarely [facility] 00:00:[facility]:00 [facility]year Hospital Sex Assigned At [birth year] Mandaeism 00:00:00 00:00:00 Hospital Smoking Status Start Date Stop Date Source Unknown if ever smoked [facility] Never smoked tobacco [facility] Medications Ordered Filled Start Stop Current Ordering Indication Dosage Frequency Signature Comments Components Source Medication Medication Date Date Medication? Clinician (SIG) Name Name METOPROLOL Yes 25mg QD Take 25 mg M ethodi SUCCINATE 9-[address] ORAL 17:18: nightly. Hospita 30 l levothyroxi Yes 150ug QD Take 1 Met hodi ne 9-[address] (SYNTHROID) 17:18: (150 mcg Ho spita 150 mcg 30 total) by l tablet mouth daily. metformin Yes 1000mg QD Take 1,000 [facility] HCl 9-[address] (METFORMIN 17:18: mouth Hospit a ORAL) 30 every l morning. valsartan-h Yes 1{tbl} QD Take 1 Me thodi ydrochlorot 9-[address] hiazide 17:18: mouth Hospita (DIOVAN-HCT 30 nightly. l ) 160-25 mg per tablet METOPROLOL Yes 25mg QD Take 25 mg M ethodi SUCCINATE 9-[address] ORAL 17:18: nightly. Hospita 30 l levothyroxi Yes 150ug QD Take 1 Met hodi ne 9-[address] (SYNTHROID) 17:18: (150 mcg Ho spita 150 mcg 30 total) by l tablet mouth daily. metformin Yes 1000mg QD Take 1,000 [facility] HCl 9-[address] (METFORMIN 17:18: mouth Hospit a ORAL) 30 every l morning. valsartan-h Yes 1{tbl} QD Take 1 Me thodi ydrochlorot 9-[address] hiazide 17:18: mouth Hospita (DIOVAN-HCT 30 nightly. l ) 160-25 mg per tablet docusate 2021- No 100mg Q.5D Take 1 [facility] di sodium 9-16 10-[address] (Colace) 00:00: 04:59 (100 mg Hospi ta 100 MG 00 :00 total) by l capsule mouth 2 (two) times a day for 30 days. methocarbam 2021- No 500mg Q.25D Take 1 M ethodi oL 9-16 10-[address] (ROBAXIN) 00:00: 04:59 (500 mg Hosp angelito 500 MG 00 :00 total) by l tablet mouth 4 (four) times a day for 30 days. docusate 2021- No 100mg Q.5D Take 1 [facility] di sodium 9-16 10-[address] (Colace) 00:00: 04:59 (100 mg Hospi ta 100 MG 00 :00 total) by l capsule mouth 2 (two) times a day for 30 days. methocarbam 2021- No 500mg Q.25D Take 1 M ethodi oL 9-16 10-[address] (ROBAXIN) 00:00: 04:59 (500 mg Hosp angelito 500 MG 00 :00 total) by l tablet mouth 4 (four) times a day for 30 days. traMADoL 2021- No [id number] 50mg Q6H Take 1 [facility] di (ULTRAM) 50 9-16 09-24 tablet (50 s t mg tablet 00:00: 04:59 mg total) Ho spita 00 :00 by mouth l every 6 (six) hours as needed for moderate pain for up to 7 days .acute pain. acetaminoph 1{tbl} Q6H Take 1-2 [facility] en-codeine 07-[address] (TYLENOL 00:00: 04:59 mouth Hospita WITH 00 :00 every 6 l CODEINE #3) (six) 300-30 mg hours as per tablet needed for moderate pain for up to 7 days .acute pain. traMADoL 50mg Q6H Take 1 [facility] di (ULTRAM) 50 07-24 tablet (50 s t mg tablet 00:00: 04:59 mg total) Ho spita 00 :00 by mouth l every 6 (six) hours as needed for moderate pain for up to 7 days .acute pain. acetaminoph 1{tbl} Q6H Take 1-2 [facility] en-codeine 07-[address] (TYLENOL 00:00: 04:59 mouth Hospita WITH 00 :00 every 6 l CODEINE #3) (six) 300-30 mg hours as per tablet needed for moderate pain for up to 7 days .acute pain. valsartan 1{tbl} QD Take 1 Met hodi 160 MG 07-[address] tablet 160 17:02: 00:00 mouth Hospi ta mg, 55 :00 nightly. l hydroCHLORO thiazide 25 MG tablet 12.5 mg valsartan 1{tbl} QD Take 1 Met hodi 160 MG 07-[address] tablet 160 17:02: 00:00 mouth Hospi ta mg, 55 :00 nightly. l hydroCHLORO thiazide 25 MG tablet 12.5 mg levothyroxi levothyroxi No levothyrox [facility] ne 150 mcg ne 150 mcg ine 150 [facility] tablet TAKE tablet TAKE mcg tablet Urology 1 TABLET BY 1 TABLET BY TAKE 1 MOUTH EVERY MOUTH EVERY TABLET BY DAY IN THE DAY IN THE MOUTH MORNING ON MORNING ON EVERY DAY EMPTY EMPTY IN THE STOMACH FOR STOMACH FOR MORNING ON 90 DAYS 90 DAYS EMPTY STOMACH FOR 90 DAYS metformin metformin No metformin [facility] ER 500 mg ER 500 mg ER 500 mg [facility] tablet,exte tablet,exte tablet,ext Urology nded nded ended release 24 release 24 release 24 hr TAKE 2 hr TAKE 2 hr TAKE 2 TABLETS BY TABLETS BY TABLETS BY MOUTH EVERY MOUTH EVERY MOUTH DAY FOR 90 DAY FOR 90 EVERY DAY DAYS DAYS FOR 90 DAYS metoprolol metoprolol No metoprolol [facility] succinate succinate succinate [facility] ER 25 mg ER 25 mg ER 25 mg Uro logy tablet,exte tablet,exte tablet,ext nded nded ended release 24 release 24 release 24 hr TAKE 1 hr TAKE 1 hr TAKE 1 TABLET BY TABLET BY TABLET BY MOUTH EVERY MOUTH EVERY MOUTH DAY DAY EVERY DAY valsartan valsartan No valsartan [facility] 160 160 160 [facility] mg-hydrochl mg-hydrochl mg-hydroch Urology orothiazide orothiazide lorothiazi 25 mg 25 mg de 25 mg tablet TAKE tablet TAKE tablet 1 TABLET BY 1 TABLET BY TAKE 1 MOUTH EVERY MOUTH EVERY TABLET BY DAY DAY MOUTH EVERY DAY acetaminoph acetaminoph No acetaminop Fisher en 300 en 300 hen 300 [facility] mg-codeine mg-codeine mg-codeine Urology 30 mg 30 mg 30 mg tablet tablet tablet PLEASE SEE PLEASE SEE PLEASE SEE ATTACHED ATTACHED ATTACHED FOR FOR FOR DETAILED DETAILED DETAILED DIRECTIONS DIRECTIONS DIRECTIONS aspirin 81 aspirin 81 No aspirin 81 Herr mg mg mg [facility] tablet,loraine tablet,loraine tablet,del Urology yed release yed release ayed TAKE 1 TAKE 1 release TABLET BY TABLET BY TAKE 1 MOUTH EVERY MOUTH EVERY TABLET BY 24 HOURS 24 HOURS MOUTH EVERY 24 HOURS azithromyci azithromyci No azithromyc Fisher n 500 mg n 500 mg in 500 mg Me tro tablet TAKE tablet TAKE tablet Urology 1 TABLET BY 1 TABLET BY TAKE 1 MOUTH EVERY MOUTH EVERY TABLET BY DAY FOR 5 DAY FOR 5 MOUTH DAYS BEGIN DAYS BEGIN EVERY DAY 10/04/2022 10/04/2022 FOR 5 DAYS BEGIN 10/04/2022 benzonatate benzonatate No benzonatat [facility] 200 mg 200 mg e 200 mg [facility] capsule capsule capsule Urolog y TAKE 1 TAKE 1 TAKE 1 CAPSULE BY CAPSULE BY CAPSULE BY MOUTH EVERY MOUTH EVERY MOUTH 8 HOURS 8 HOURS EVERY 8 HOURS docusate docusate No docusate Zulma ston sodium 100 sodium 100 sodium 100 [facility] mg capsule mg capsule mg capsule Urology TAKE 1 TAKE 1 TAKE 1 CAPSULE BY CAPSULE BY CAPSULE BY MOUTH 2 MOUTH 2 MOUTH 2 TIMES A DAY TIMES A DAY TIMES A FOR 30 FOR 30 DAY FOR 30 DAYS. DAYS. DAYS. famotidine famotidine No famotidine [facility] 20 mg 20 mg 20 mg [facility] tablet TAKE tablet TAKE tablet Urology 1 TABLET BY 1 TABLET BY TAKE 1 MOUTH EVERY MOUTH EVERY TABLET BY 12 HOURS 12 HOURS MOUTH FOR 14 DAYS FOR 14 DAYS EVERY 12 HOURS FOR 14 DAYS ketorolac ketorolac No ketorolac Fisher 10 mg 10 mg 10 mg [facility] tablet TAKE tablet TAKE tablet Urology 1 TABLET BY 1 TABLET BY TAKE 1 MOUTH EVERY MOUTH EVERY TABLET BY 6 HOURS 6 HOURS MOUTH EVERY 6 HOURS levothyroxi levothyroxi No levothyrox Fisher ne 150 mcg ne 150 mcg ine 150 [facility] tablet TAKE tablet TAKE mcg tablet Urology 1 TABLET BY 1 TABLET BY TAKE 1 MOUTH EVERY MOUTH EVERY TABLET BY DAY IN THE DAY IN THE MOUTH MORNING ON MORNING ON EVERY DAY EMPTY EMPTY IN THE STOMACH FOR STOMACH FOR MORNING ON 90 DAYS 90 DAYS EMPTY STOMACH FOR 90 DAYS levothyroxi levothyroxi No levothyrox Fisher ne 175 mcg ne 175 mcg ine 175 [facility] tablet TAKE tablet TAKE mcg tablet Urology 1 TABLET BY 1 TABLET BY TAKE 1 MOUTH EVERY MOUTH EVERY TABLET BY DAY IN THE DAY IN THE MOUTH MORNING ON MORNING ON EVERY DAY EMPTY EMPTY IN THE STOMACH FOR STOMACH FOR MORNING ON 90 DAYS 90 DAYS EMPTY STOMACH FOR 90 DAYS metformin metformin No metformin [facility] ER 500 mg ER 500 mg ER 500 mg [facility] tablet,exte tablet,exte tablet,ext Urology nded nded ended release 24 release 24 release 24 hr TAKE 2 hr TAKE 2 hr TAKE 2 TABLETS BY TABLETS BY TABLETS BY MOUTH EVERY MOUTH EVERY MOUTH DAY FOR 90 DAY FOR 90 EVERY DAY DAYS DAYS FOR 90 DAYS methocarbam methocarbam No methocarba Fisher ol 500 mg ol 500 mg mol 500 mg [facility] tablet TAKE tablet TAKE tablet Urology 1 TABLET 1 TABLET TAKE 1 (500 MG (500 MG TABLET TOTAL) BY TOTAL) BY (500 MG MOUTH 4 MOUTH 4 TOTAL) BY (FOUR) (FOUR) MOUTH 4 TIMES A DAY TIMES A DAY (FOUR) FOR 30 FOR 30 TIMES A DAYS. DAYS. DAY FOR 30 DAYS. metoprolol metoprolol No metoprolol [facility] succinate succinate succinate [facility] ER 25 mg ER 25 mg ER 25 mg Uro logy tablet,exte tablet,exte tablet,ext nded nded ended release 24 release 24 release 24 hr TAKE 1 hr TAKE 1 hr TAKE 1 TABLET BY TABLET BY TABLET BY MOUTH EVERY MOUTH EVERY MOUTH DAY DAY EVERY DAY Paxlovid Paxlovid No Paxlovid Zulma ston 300 mg (150 300 mg (150 300 mg [facility] mg x 2)-100 mg x 2)-100 (150 mg x Urology mg tablets mg tablets 2)-100 mg in a dose in a dose tablets in pack (EUA) pack (EUA) a dose TAKE 3 TAKE 3 pack (EUA) TABLETS BY TABLETS BY TAKE 3 MOUTH TWICE MOUTH TWICE TABLETS BY A DAY FOR 5 A DAY FOR 5 MOUTH DAYS. TAKE DAYS. TAKE TWICE A DIRECTED DIRECTED DAY FOR 5 ON ON DAYS. TAKE PACKAGING PACKAGING DIRECTED ON PACKAGING Pulmicort Pulmicort No Pulmicort [facility] Flexhaler Flexhaler Flexhaler [facility] 180 180 180 Urology mcg/actuati mcg/actuati mcg/actuat on breath on breath ion breath activated activated activated INHALE BY INHALE BY INHALE BY MOUTH 2 MOUTH 2 MOUTH 2 PUFFS EVERY PUFFS EVERY PUFFS 12 HOURS 12 HOURS EVERY 12 FOR 1 WEEK FOR 1 WEEK HOURS FOR UNTIL UNTIL 1 WEEK SYMPTOMS SYMPTOMS UNTIL IMPROVE IMPROVE SYMPTOMS IMPROVE tramadol 50 tramadol 50 No tramadol Herr mg tablet mg tablet 50 mg Metr o PLEASE SEE PLEASE SEE tablet U rology ATTACHED ATTACHED PLEASE SEE FOR FOR ATTACHED DETAILED DETAILED FOR DIRECTIONS DIRECTIONS DETAILED DIRECTIONS valsartan valsartan No valsartan [facility] 160 160 160 [facility] mg-hydrochl mg-hydrochl mg-hydroch Urology orothiazide orothiazide lorothiazi 25 mg 25 mg de 25 mg tablet TAKE tablet TAKE tablet 1 TABLET BY 1 TABLET BY TAKE 1 MOUTH EVERY MOUTH EVERY TABLET BY DAY DAY MOUTH EVERY DAY aspirin 81 aspirin 81 No aspirin 81 [facility] mg mg mg [facility] tablet,loraine tablet,loraine tablet,del Urology yed release yed release ayed TAKE 1 TAKE 1 release TABLET BY TABLET BY TAKE 1 MOUTH EVERY MOUTH EVERY TABLET BY 24 HOURS 24 HOURS MOUTH EVERY 24 HOURS azithromyci azithromyci No azithromyc Fisher n 500 mg n 500 mg in 500 mg Me tro tablet TAKE tablet TAKE tablet Urology 1 TABLET BY 1 TABLET BY TAKE 1 MOUTH EVERY MOUTH EVERY TABLET BY DAY FOR 5 DAY FOR 5 MOUTH DAYS BEGIN DAYS BEGIN EVERY DAY 10/04/2022 10/04/2022 FOR 5 DAYS BEGIN 10/04/2022 benzonatate benzonatate No benzonatat [facility] 200 mg 200 mg e 200 mg [facility] capsule capsule capsule Urolog y TAKE 1 TAKE 1 TAKE 1 CAPSULE BY CAPSULE BY CAPSULE BY MOUTH EVERY MOUTH EVERY MOUTH 8 HOURS 8 HOURS EVERY 8 HOURS famotidine famotidine No famotidine Fisher 20 mg 20 mg 20 mg [facility] tablet TAKE tablet TAKE tablet Urology 1 TABLET BY 1 TABLET BY TAKE 1 MOUTH EVERY MOUTH EVERY TABLET BY 12 HOURS 12 HOURS MOUTH FOR 14 DAYS FOR 14 DAYS EVERY 12 HOURS FOR 14 DAYS GaviLyte-G GaviLyte-G No GaviLyte-G [facility] 236 236 236 [facility] gram-22.74 gram-22.74 gram-22.74 Urology gram-6.74 gram-6.74 gram-6.74 gram-5.86 gram-5.86 gram-5.86 gram oral gram oral gram oral solution solution solution PLEASE SEE PLEASE SEE PLEASE SEE ATTACHED ATTACHED ATTACHED FOR FOR FOR DETAILED DETAILED DETAILED DIRECTIONS DIRECTIONS DIRECTIONS hydrocortis hydrocortis No hydrocorti Fisher one 2.5 % one 2.5 % sone 2.5 % [facility] topical topical topical Urolog y cream cream cream levothyroxi levothyroxi No levothyrox Fisher ne 150 mcg ne 150 mcg ine 150 [facility] tablet TAKE tablet TAKE mcg tablet Urology 1 TABLET BY 1 TABLET BY TAKE 1 MOUTH EVERY MOUTH EVERY TABLET BY DAY IN THE DAY IN THE MOUTH MORNING ON MORNING ON EVERY DAY EMPTY EMPTY IN THE STOMACH FOR STOMACH FOR MORNING ON 90 DAYS 90 DAYS EMPTY STOMACH FOR 90 DAYS levothyroxi levothyroxi No levothyrox Fisher ne 175 mcg ne 175 mcg ine 175 [facility] tablet TAKE tablet TAKE mcg tablet Urology 1 TABLET BY 1 TABLET BY TAKE 1 MOUTH EVERY MOUTH EVERY TABLET BY DAY IN THE DAY IN THE MOUTH MORNING ON MORNING ON EVERY DAY EMPTY EMPTY IN THE STOMACH FOR STOMACH FOR MORNING ON 90 DAYS 90 DAYS EMPTY STOMACH FOR 90 DAYS metformin metformin No metformin [facility] ER 500 mg ER 500 mg ER 500 mg [facility] tablet,exte tablet,exte tablet,ext Urology nded nded ended release 24 release 24 release 24 hr TAKE 2 hr TAKE 2 hr TAKE 2 TABLETS BY TABLETS BY TABLETS BY MOUTH EVERY MOUTH EVERY MOUTH DAY FOR 90 DAY FOR 90 EVERY DAY DAYS DAYS FOR 90 DAYS metoprolol metoprolol No metoprolol [facility] succinate succinate succinate [facility] ER 25 mg ER 25 mg ER 25 mg Uro logy tablet,exte tablet,exte tablet,ext nded nded ended release 24 release 24 release 24 hr TAKE 1 hr TAKE 1 hr TAKE 1 TABLET BY TABLET BY TABLET BY MOUTH EVERY MOUTH EVERY MOUTH DAY DAY EVERY DAY Ozempic Ozempic No Ozempic Housto n 0.25 mg or 0.25 mg or 0.25 mg or [facility] 0.5 mg (2 0.5 mg (2 0.5 mg (2 Urology mg/1.5 mL) mg/1.5 mL) mg/1.5 mL) subcutaneou subcutaneou subcutaneo s pen s pen us pen injector injector injector 0.5 MG 0.5 MG 0.5 MG SUBCUTANEOU SUBCUTANEOU SUBCUTANEO S ONCE PER S ONCE PER US ONCE WEEK 28 WEEK 28 PER WEEK DAYS DAYS 28 DAYS Ozempic 1 Ozempic 1 No Ozempic 1 Fisher mg/dose (4 mg/dose (4 mg/dose (4 [facility] mg/3 mL) mg/3 mL) mg/3 mL) Uro logy subcutaneou subcutaneou subcutaneo s pen s pen us pen injector 1 injector 1 injector 1 MG MG MG DIRECTED DIRECTED DIRECTED SUBCUTANEOU SUBCUTANEOU SUBCUTANEO S ONCE A S ONCE A US ONCE A WEEK 90 WEEK 90 WEEK 90 DAYS DAYS DAYS Paxlovid Paxlovid No Paxlovid Zulma ston 300 mg (150 300 mg (150 300 mg [facility] mg x 2)-100 mg x 2)-100 (150 mg x Urology mg tablets mg tablets 2)-100 mg in a dose in a dose tablets in pack TAKE 3 pack TAKE 3 a dose TABLETS BY TABLETS BY pack TAKE MOUTH TWICE MOUTH TWICE 3 TABLETS A DAY FOR 5 A DAY FOR 5 BY MOUTH DAYS. TAKE DAYS. TAKE TWICE A DIRECTED DIRECTED DAY FOR 5 ON ON DAYS. TAKE PACKAGING PACKAGING DIRECTED ON PACKAGING Pulmicort Pulmicort No Pulmicort [facility] Flexhaler Flexhaler Flexhaler [facility] 180 180 180 Urology mcg/actuati mcg/actuati mcg/actuat on breath on breath ion breath activated activated activated INHALE BY INHALE BY INHALE BY MOUTH 2 MOUTH 2 MOUTH 2 PUFFS EVERY PUFFS EVERY PUFFS 12 HOURS 12 HOURS EVERY 12 FOR 1 WEEK FOR 1 WEEK HOURS FOR UNTIL UNTIL 1 WEEK SYMPTOMS SYMPTOMS UNTIL IMPROVE IMPROVE SYMPTOMS IMPROVE valsartan valsartan No valsartan [facility] 160 160 160 [facility] mg-hydrochl mg-hydrochl mg-hydroch Urology orothiazide orothiazide lorothiazi 25 mg 25 mg de 25 mg tablet TAKE tablet TAKE tablet 1 TABLET BY 1 TABLET BY TAKE 1 MOUTH EVERY MOUTH EVERY TABLET BY DAY DAY MOUTH EVERY DAY acetaminoph acetaminoph No acetaminop Fisher en 300 en 300 hen 300 [facility] mg-codeine mg-codeine mg-codeine Urology 30 mg 30 mg 30 mg tablet tablet tablet PLEASE SEE PLEASE SEE PLEASE SEE ATTACHED ATTACHED ATTACHED FOR FOR FOR DETAILED DETAILED DETAILED DIRECTIONS DIRECTIONS DIRECTIONS docusate docusate No docusate Zulma ston sodium 100 sodium 100 sodium 100 [facility] mg capsule mg capsule mg capsule Urology TAKE 1 TAKE 1 TAKE 1 CAPSULE BY CAPSULE BY CAPSULE BY MOUTH 2 MOUTH 2 MOUTH 2 TIMES A DAY TIMES A DAY TIMES A FOR 30 FOR 30 DAY FOR 30 DAYS. DAYS. DAYS. levothyroxi levothyroxi No levothyrox Fisher ne 150 mcg ne 150 mcg ine 150 [facility] tablet TAKE tablet TAKE mcg tablet Urology 1 TABLET BY 1 TABLET BY TAKE 1 MOUTH EVERY MOUTH EVERY TABLET BY DAY IN THE DAY IN THE MOUTH MORNING ON MORNING ON EVERY DAY EMPTY EMPTY IN THE STOMACH FOR STOMACH FOR MORNING ON 90 DAYS 90 DAYS EMPTY STOMACH FOR 90 DAYS metformin metformin No metformin Fisher ER 500 mg ER 500 mg ER 500 mg [facility] tablet,exte tablet,exte tablet,ext Urology nded nded ended release 24 release 24 release 24 hr TAKE 2 hr TAKE 2 hr TAKE 2 TABLETS BY TABLETS BY TABLETS BY MOUTH EVERY MOUTH EVERY MOUTH DAY FOR 90 DAY FOR 90 EVERY DAY DAYS DAYS FOR 90 DAYS methocarbam methocarbam No methocarba Fisher ol 500 mg ol 500 mg mol 500 mg [facility] tablet TAKE tablet TAKE tablet Urology 1 TABLET 1 TABLET TAKE 1 (500 MG (500 MG TABLET TOTAL) BY TOTAL) BY (500 MG MOUTH 4 MOUTH 4 TOTAL) BY (FOUR) (FOUR) MOUTH 4 TIMES A DAY TIMES A DAY (FOUR) FOR 30 FOR 30 TIMES A DAYS. DAYS. DAY FOR 30 DAYS. metoprolol metoprolol No metoprolol [facility] succinate succinate succinate [facility] ER 25 mg ER 25 mg ER 25 mg Uro logy tablet,exte tablet,exte tablet,ext nded nded ended release 24 release 24 release 24 hr TAKE 1 hr TAKE 1 hr TAKE 1 TABLET BY TABLET BY TABLET BY MOUTH EVERY MOUTH EVERY MOUTH DAY DAY EVERY DAY tramadol 50 tramadol 50 No tramadol Herr mg tablet mg tablet 50 mg Metr o PLEASE SEE PLEASE SEE tablet U rology ATTACHED ATTACHED PLEASE SEE FOR FOR ATTACHED DETAILED DETAILED FOR DIRECTIONS DIRECTIONS DETAILED DIRECTIONS valsartan valsartan No valsartan Fisher 160 160 160 [facility] mg-hydrochl mg-hydrochl mg-hydroch Urology orothiazide orothiazide lorothiazi 25 mg 25 mg de 25 mg tablet TAKE tablet TAKE tablet 1 TABLET BY 1 TABLET BY TAKE 1 MOUTH EVERY MOUTH EVERY TABLET BY DAY DAY MOUTH EVERY DAY atorvastati atorvastati No atorvastat Fisher n 40 mg n 40 mg in 40 mg [facility] tablet tablet tablet Urology azithromyci azithromyci No azithromyc Fisher n 500 mg n 500 mg in 500 mg Me tro tablet TAKE tablet TAKE tablet Urology 1 TABLET BY 1 TABLET BY TAKE 1 MOUTH EVERY MOUTH EVERY TABLET BY DAY FOR 6 DAY FOR 6 MOUTH DAYS DAYS EVERY DAY FOR 6 DAYS benzonatate benzonatate No benzonatat Fisher 100 mg 100 mg e 100 mg [facility] capsule capsule capsule Urolog y TAKE 1 TAKE 1 TAKE 1 CAPSULE BY CAPSULE BY CAPSULE BY MOUTH 3 MOUTH 3 MOUTH 3 TIMES A DAY TIMES A DAY TIMES A IF NEEDED IF NEEDED DAY IF FOR COUGH. FOR COUGH. NEEDED FOR DO NOT DO NOT COUGH. DO CRUSH OR CRUSH OR NOT CRUSH CHEW. CHEW. OR CHEW. dexamethaso dexamethaso No dexamethas Fisher ne 2 mg ne 2 mg one 2 mg [facility] tablet TAKE tablet TAKE tablet Urology 1 TABLET BY 1 TABLET BY TAKE 1 MOUTH TWICE MOUTH TWICE TABLET BY A DAY FOR A DAY FOR MOUTH 15 DAYS 15 DAYS TWICE A DAY FOR 15 DAYS fluticasone fluticasone No fluticason Fisher propionate propionate e Met ro 50 50 propionate Urology mcg/actuati mcg/actuati 50 on nasal on nasal mcg/actuat spray,suspe spray,suspe ion nasal nsion nsion spray,susp PLEASE SEE PLEASE SEE ension ATTACHED ATTACHED PLEASE SEE FOR FOR ATTACHED DETAILED DETAILED FOR DIRECTIONS DIRECTIONS DETAILED DIRECTIONS levothyroxi levothyroxi No levothyrox Fisher ne 100 mcg ne 100 mcg ine 100 [facility] tablet TAKE tablet TAKE mcg tablet Urology 1 TABLET BY 1 TABLET BY TAKE 1 MOUTH EVERY MOUTH EVERY TABLET BY DAY IN THE DAY IN THE MOUTH MORNING ON MORNING ON EVERY DAY EMPTY EMPTY IN THE STOMACH FOR STOMACH FOR MORNING ON 30 DAYS 30 DAYS EMPTY STOMACH FOR 30 DAYS levothyroxi levothyroxi No levothyrox Fisher ne 137 mcg ne 137 mcg ine 137 [facility] tablet TAKE tablet TAKE mcg tablet Urology 1 TABLET BY 1 TABLET BY TAKE 1 MOUTH EVERY MOUTH EVERY TABLET BY DAY IN THE DAY IN THE MOUTH MORNING ON MORNING ON EVERY DAY EMPTY EMPTY IN THE STOMACH FOR STOMACH FOR MORNING ON 90 DAYS 90 DAYS EMPTY STOMACH FOR 90 DAYS levothyroxi levothyroxi No levothyrox Fisher ne 150 mcg ne 150 mcg ine 150 [facility] tablet TAKE tablet TAKE mcg tablet Urology 1 TABLET BY 1 TABLET BY TAKE 1 MOUTH EVERY MOUTH EVERY TABLET BY DAY IN THE DAY IN THE MOUTH MORNING ON MORNING ON EVERY DAY EMPTY EMPTY IN THE STOMACH FOR STOMACH FOR MORNING ON 90 DAYS 90 DAYS EMPTY STOMACH FOR 90 DAYS losartan losartan No losartan Zulma ston 100 mg 100 mg 100 mg [facility] tablet tablet tablet Urology metformin metformin No metformin Fisher ER 500 mg ER 500 mg ER 500 mg [facility] tablet,exte tablet,exte tablet,ext Urology nded nded ended release 24 release 24 release 24 hr TAKE 2 hr TAKE 2 hr TAKE 2 TABLETS BY TABLETS BY TABLETS BY MOUTH EVERY MOUTH EVERY MOUTH DAY FOR 90 DAY FOR 90 EVERY DAY DAYS DAYS FOR 90 DAYS methylpredn methylpredn No methylpred Fisher isolone 4 isolone 4 nisolone 4 [facility] mg tablets mg tablets mg tablets Urology in a dose in a dose in a dose pack TAKE 6 pack TAKE 6 pack TAKE TABLETS ON TABLETS ON 6 TABLETS DAY 1 DAY 1 ON DAY 1 DIRECTED ON DIRECTED ON PACKAGE AND PACKAGE AND DIRECTED DECREASE BY DECREASE BY ON PACKAGE 1 TAB EACH 1 TAB EACH AND DAY FOR A DAY FOR A DECREASE TOTAL OF 6 TOTAL OF 6 BY 1 TAB DAYS DAYS EACH DAY FOR A TOTAL OF 6 DAYS metoclopram metoclopram No metoclopra Fisher earline 10 mg earline 10 mg mide 10 mg Metro tablet tablet tablet Urology metoprolol metoprolol No metoprolol [place] succinate succinate succinate [facility] ER 25 mg ER 25 mg ER 25 mg Uro logy tablet,exte tablet,exte tablet,ext nded nded ended release 24 release 24 release 24 hr TAKE 1 hr TAKE 1 hr TAKE 1 TABLET BY TABLET BY TABLET BY MOUTH EVERY MOUTH EVERY MOUTH DAY DAY EVERY DAY ondansetron ondansetron No ondansetro [facility] HCl 4 mg HCl 4 mg n HCl 4 mg M etro tablet TAKE tablet TAKE tablet Urology 1 TABLET BY 1 TABLET BY TAKE 1 MOUTH EVERY MOUTH EVERY TABLET BY 8 HOURS IF 8 HOURS IF MOUTH NEEDED FOR NEEDED FOR EVERY 8 NAUSEA OR NAUSEA OR HOURS IF VOMITING VOMITING NEEDED FOR FOR UP TO FOR UP TO NAUSEA OR 13 DAYS. 13 DAYS. VOMITING FOR UP TO 13 DAYS. pregabalin pregabalin No pregabalin [place] 75 mg 75 mg 75 mg [facility] capsule capsule capsule Urolog y TAKE 1 TAKE 1 TAKE 1 CAPSULE BY CAPSULE BY CAPSULE BY MOUTH AT MOUTH AT MOUTH AT BEDTIME BEDTIME BEDTIME Pulmicort Pulmicort No Pulmicort [place] Flexhaler Flexhaler Flexhaler Metro 90 90 90 Urology mcg/actuati mcg/actuati mcg/actuat on breath on breath ion breath activated activated activated INHALE 1 INHALE 1 INHALE 1 DOSE BY DOSE BY DOSE BY MOUTH TWICE MOUTH TWICE MOUTH DAILY. DAILY. TWICE RINSE MOUTH RINSE MOUTH DAILY. AFTER USE AFTER USE RINSE MOUTH AFTER USE Trelegy Trelegy No Trelegy [place] Ellipta 200 Ellipta 200 Ellipta Metro mcg-62.5 mcg-62.5 200 Urology mcg-25 mcg mcg-25 mcg mcg-62.5 powder for powder for mcg-25 mcg inhalation inhalation powder for INHALE 1 INHALE 1 inhalation PUFF BY PUFF BY INHALE 1 MOUTH ONCE MOUTH ONCE PUFF BY A DAY A DAY MOUTH ONCE A DAY valsartan valsartan No valsartan [place] 160 160 160 [facility] mg-hydrochl mg-hydrochl mg-hydroch Urology orothiazide orothiazide lorothiazi 25 mg 25 mg de 25 mg tablet TAKE tablet TAKE tablet 1 TABLET BY 1 TABLET BY TAKE 1 MOUTH EVERY MOUTH EVERY TABLET BY DAY DAY MOUTH EVERY DAY metformin metformin No metformin [place] ER 500 mg ER 500 mg ER 500 mg [facility] tablet,exte tablet,exte tablet,ext Urology nded nded ended release 24 release 24 release 24 hr TAKE 2 hr TAKE 2 hr TAKE 2 TABLETS BY TABLETS BY TABLETS BY MOUTH EVERY MOUTH EVERY MOUTH DAY FOR 90 DAY FOR 90 EVERY DAY DAYS DAYS FOR 90 DAYS metoprolol metoprolol No metoprolol [place] succinate succinate succinate [facility] ER 25 mg ER 25 mg ER 25 mg Uro logy tablet,exte tablet,exte tablet,ext nded nded ended release 24 release 24 release 24 hr TAKE 1 hr TAKE 1 hr TAKE 1 TABLET BY TABLET BY TABLET BY MOUTH EVERY MOUTH EVERY MOUTH DAY DAY EVERY DAY valsartan valsartan No valsartan [place] 160 160 160 Metro mg-hydrochl mg-hydrochl mg-hydroch Urology orothiazide orothiazide lorothiazi 25 mg 25 mg de 25 mg tablet TAKE tablet TAKE tablet 1 TABLET BY 1 TABLET BY TAKE 1 MOUTH EVERY MOUTH EVERY TABLET BY DAY DAY MOUTH EVERY DAY Vital Signs Vital Name Observation Time Observation Value Comments Source HEIGHT 2023-06-14 12:00:00 156.2 cm WEIGHT 2023-06-14 12:00:00 102.513 kg HEIGHT 2023-06-14 12:00:00 156.2 cm WEIGHT 2023-06-14 12:00:00 102.513 kg [facility] 2023-04-12 00:00:00 61 [in_i] [facility] Urology BMI (Body Mass 2023-04-12 00:00:00 49.7 kg/m2 [place] [facility] Index) Urology Body Weight 2023-04-12 00:00:00 263 [lb_av] [facility] Urology Height 2022-12-02 00:00:00 61 [in_i] [facility] Urology BMI (Body Mass 2022-12-02 00:00:00 49.7 kg/m2 [place] [facility] Index) Urology Body Weight 2022-12-02 00:00:00 263 [lb_av] [facility] Urology Height 2022-06-03 00:00:00 61 [in_i] [facility] Urology BMI (Body Mass 2022-06-03 00:00:00 49.7 kg/m2 [place] [facility] Index) Urology Body Weight 2022-06-03 00:00:00 263 [lb_av] [facility] Urology Height 2022-05-12 00:00:00 61 [in_i] [facility] Urology BMI (Body Mass 2022-05-12 00:00:00 49.7 kg/m2 [place] [facility] Index) Urology Body Weight 2022-05-12 00:00:00 263 [lb_av] Nemesio Sladero Urology Systolic blood 2023-06-15 12:54:00 103 mm[Hg] [facility] Diastolic blood 2023-06-15 12:54:00 51 mm[Hg] [facility] Heart rate 2023-06-15 12:54:00 54 /min [facility] Body temperature 2023-06-15 12:54:00 35.67 Beatris [facility] Respiratory rate 2023-06-15 12:54:00 18 /min [facility] Oxygen saturation in 2023-06-15 12:54:00 96 /min [facility] Arterial blood by Medical Ce nter Pulse oximetry Body height 2023-06-14 12:00:00 156.2 cm [facility] Body weight 2023-06-14 12:00:00 102.513 kg [facility] BMI 2023-06-14 12:00:00 42.01 kg/m2 [facility] Systolic blood 2022-07-24 17:47:56 146 mm[Hg] [facility] pressure Diastolic blood 2022-07-24 17:47:56 73 mm[Hg] [facility] pressure Heart rate 2022-07-24 17:47:56 65 /min [facility] Body temperature 2022-07-24 17:47:56 35.83 Beatris [facility] Respiratory rate 2022-07-24 17:47:56 20 /min [facility] Oxygen saturation in 2022-07-24 17:47:56 99 /min [facility] Arterial blood by Pulse oximetry Body height 2022-07-13 21:53:00 157.5 cm [facility] Body weight 2022-07-13 21:53:00 120.203 kg [facility] BMI 2022-07-13 21:53:00 48.47 kg/m2 [facility] Procedures Procedure Date / Time Performing Clinician Source Performed POCT-GLUCOSE METER 2023-06-15 10:17:00 Florence Palm [facility] LIPID PANEL 2023-06-15 05:29:00 [facility] PAN[facility] 2023-06-15 05:29:00 [facility] CBC (HEMOGRAM ONLY) 2023-06-15 05:29:00 [facility] HIGH SENSITIVITY TROPONIN 2023-06-14 20:30:00 Navi Ferrer n [facility] ECG 12-LEAD 2023-06-14 19:32:49 Unknown, Hl7 Doctor [facility] ECG 12-LEAD 2023-06-14 19:31:46 Unknown, Hl7 Doctor [facility] ECG 12-LEAD 2023-06-14 19:31:46 Unknown, 7 [facility] HEMOGLOBIN A1C 2023-06-14 18:29:00 [facility] HIGH SENSITIVITY TROPONIN 2023-06-14 18:29:00 [facility] FOR [facility]ULMONARY 2023-06-14 16:51:55 [facility] BASIC METABOLIC PANEL 2023-06-14 13:31:00 Daphney Bustillos [facility] CBC W/PLT COUNT & AUTO 2023-06-14 13:31:[address] [facility] HIGH SENSITIVITY TROPONIN 2023-06-14 13:31:00 Daphney Bustillos [facility] TSH/FREE T4 IF INDICATED 2023-06-14 13:31:00 Daphney Bustillos [facility] B-TYPE NATRIURETIC FACTOR 2023-06-14 13:31:00 Sage Pelayo [facility] PROTHROMBIN TIME/INR 2023-06-14 13:31:00 [facility] D-DIMER 2023-06-14 13:31:00 [facility] T4, FREE 2023-06-14 13:31:00 Daphney Bustillos [facility] CBC W/PLT COUNT & AUTO 2023-06-14 13:31:00 Daphney Bustillos [facility] Center XR CHEST 2 VIEWS 2023-06-14 12:42:00 Daphney Bustillos [facility] ECG 12-LEAD 2023-06-14 11:58:14 Unknown, Hl7 Doctor [facility] ECG 12-LEAD 2023-06-14 11:58:14 Unknown, Hl7 [facility] CARDIAC CATH REPORT - SCAN 2023-06-14 00:00:00 Provider, Default [facility] EKG-SCANNED 2023-06-14 00:00:00 Provider, Default [facility] CT, abdomen, w/wo contrast 2023-04-12 00:00:00 [facility] CT, abdomen, w/wo contrast 2022-12-02 00:00:00 [facility] CT, abdomen, w/wo contrast 2022-08-05 00:00:00 H [facility] BASIC METABOLIC PANEL 2022-07-24 09:08:00 [facility] CBC WITH PLATELET AND 2022-07-24 09:08:00 [facility] DIFFERENTIAL ESTIMATED GFR 2022-07-24 09:08:00 [facility] HEMOGLOBIN & HEMATOCRIT 2022-07-23 23:52:00 [facility] ZZCOVID-19 ANTI-SPIKE IGG 2022-07-23 10:19:00 Raj Luciano [facility] ANTIBODY TITER Dave BASIC METABOLIC PANEL 2022-07-23 10:19:00 [facility] CBC WITH PLATELET AND 2022-07-23 10:19:00 [facility] DIFFERENTIAL ZZCOVID-19 SEROLOGY 2022-07-23 10:19:00 [facility] Dave ESTIMATED GFR 2022-07-23 10:19:00 [facility] BASIC METABOLIC PANEL 2022-07-22 08:40:00 [facility] WITH PLATELET AND 2022-07-22 08:40:00 [facility] DIFFERENTIAL ESTIMATED GFR 2022-07-22 08:40:00 [facility] HEM[facility]EMATOCRIT 2022-07-22 01:21:00 Brandon Fajardo [facility] Terry BASIC METABOLIC PANEL 2022-07-21 21:49:00 [facility] CBC WITH PLATELET AND 2022-07-21 21:49:00 [facility] DIFFERENTIAL ESTIMATED GFR 2022-07-21 21:49:00 [facility] POC GLUCOSE 2022-07-21 21:37:00 [facility] ARTERIAL BLOOD GAS, 2022-07-21 20:24:00 [facility] CORRECT[facility] SODIUM LEVEL, SYRINGE 2022-07-21 20:24:00 Shmuel [facility] POTASSIUM, SYRINGE 2022-07-21 20:24:00 Shmuel [facility] IONIZED CALCIUM, ARTERIAL 2022-07-21 20:24:00 [facility] HEMO[facility] SYRINGE 2022-07-21 20:24:00 [facility] LACTIC ACID, SYRINGE 2022-07-21 20:24:00 Shmuel [facility] GLUCOSE LEVEL, SYRINGE 2022-07-21 20:24:00 [facility] MAGNESIUM LEVEL 2022-07-21 20:24:00 [facility] SURGICAL PATHOLOG[facility] REQUEST 2022-07-21 19:43:00 Shmuel [facility] ARTERIAL LINE 2022-07-21 17:55:12 Giovana Gabrieltal Shaylee [place] AN ELECTIVE 2022-07-21 17:10:00 Giovana Gabriel rometal ENDOTRACHEAL AIRWAY Shaylee NEPHRECTOMY, PARTIAL, 2022-07-21 17:01:00 Jemal Jacobs [facility] RADICAL, LAPAROSCOPIC, RETROPERITONEAL APPROACH, ROBOT-ASSISTED HC NERVE BLOCK QUADRATUS 2022-07-21 16:47:36 Ad Quintana [facility] LUMBORUM HC NERVE BLOCK ERECTOR 2022-07-21 16:45:06 Ad Quintana [facility] SPINAE ABO/RH 2022-07-21 16:04:00 Shmuel [facility] COVID-19 QUALITATIVE 2022-07-16 16:07:00 Jemal Jacobs [facility] RT-PCR URINALYSIS SCREEN AND 2022-07-16 16:07:00 Silvia Panda [facility] MICROSCOPY, WITH REFLEX TO CULTURE CBC WITH PLATELET AND 2022-07-16 15:16:00 Silvia Panda [facility] DIFFERENTIAL COMPREHENSIVE METABOLIC 2022-07-16 15:16:00 Farzad Silviajames Palm [facility] PANEL PROTHROMBIN TIME WITH INR 2022-07-16 15:16:00 Farzad [facility] PARTIAL THROMBOPLASTIN 2022-07-16 15:16:00 Farzad [place] Arpita [facility] TIME (PTT) HEMOGLOBIN A1C 2022-07-16 15:16:00 [facility] TYPE AND SCREEN 2022-07-16 15:16:00 Farzad, [facility] ESTIMATED GFR 2022-07-16 15:16:00 [facility] URINE CULTURE 2022-07-16 15:06:00 [facility] MRI, abdomen, w/wo 2022-05-12 00:00:00 Nemesio sherman contrast Urology ASSIGNMENT OF BENEFITS 2021-06-14 18:37:40 [facility] 2014-11-08 00:00:00 [facility] REGULATORY SUBMISSIONS ASSOCIATE- Hysterectomy 2004-11-08 00:00:00 Nemesio vizcaino Urology REGULATORY SUBMISSIONS ASSOCIATE- 1981-11-08 00:00:00 Nemesio cates Urology REGULATORY SUBMISSIONS ASSOCIATE- [facility] Plan of Care Planned Activity Planned Date Details Comments Source Future Scheduled 2031-08-04 DTAP/TDAP/TD VACCINES ([address] [facility] 00:00:00 - Td or Tdap) [code = Medica l Center DTAP/TDAP/TD VACCINES (2 - Td or Tdap)] Future Scheduled 2026-06-15 Lipid panel (procedure) [facility] 00:00:00 [code = 46777569] Medical Ce nter Future Scheduled 2024-06-[address] [facility] Test 00:00:00 Counseling and Screening [facility] (12+) [code = Tobacco Cessation Counseling and Screening (12+)] Future Scheduled 2023-07-09 Influenza Vaccine (#1) [facility] 00:00:00 [code = Influenza Medical Ce nter Vaccine (#1)] Future Scheduled 2023-06-22 Screening for malignant [facility] 10:11:14 neoplasm of colon Hospital (procedure) [code = 922096896] Future Scheduled 2023-06-22 Screening for malignant [facility] 10:11:14 neoplasm of colon Hospital (procedure) [code = 642018112] Future Scheduled 2023-06-22 COVID-19 VACCINE (#1) [facility] 10:11:14 [code = COVID-19 VACCINE Hos pital (#1)] Future Scheduled 2023-06-22 Hepatitis C screening [facility] 10:11:14 (procedure) [code = Hospital 370801680] Future Scheduled 2023-06-22 Screening for malignant [facility] 10:11:14 neoplasm of cervix Hospital (procedure) [code = 996929654] Future Scheduled 2023-06-22 BREAST CANCER SCREENING [facility] 10:11:14 [code = BREAST CANCER Hospit al SCREENING] Future Scheduled 2023-06-22 Screening for malignant [facility] 10:11:14 neoplasm of colon Hospital (procedure) [code = 572437295] Future Scheduled 2023-06-22 SHINGLES VACCINES (1 of [facility] 10:11:14 2) [code = SHINGLES Hospital VACCINES (1 of 2)] Future Scheduled 2023-06-22 Screening for malignant [facility] 10:11:14 neoplasm of colon Hospital (procedure) [code = 642898772] Future Scheduled 2023-06-22 Screening for malignant [facility] 10:11:14 neoplasm of colon Hospital (procedure) [code = 041933753] Future Scheduled 2023-06-22 INFLUENZA VACCINE [code [facility] 10:11:14 = INFLUENZA VACCINE] [facility] Future Scheduled 2023-06-22 Screening for malignant [facility] 10:11:14 neoplasm of colon Hospital (procedure) [code = 153872537] Future Scheduled 2023-06-22 Screening for malignant [facility] 10:11:14 neoplasm of colon Hospital (procedure) [code = 532087454] Future Scheduled 2023-06-22 COVID-19 VACCINE (#1) [facility] 10:11:14 [code = COVID-19 VACCINE Hos pital (#1)] Future Scheduled 2023-06-22 Hepatitis C screening [facility] 10:11:14 (procedure) [code = Hospital 363073559] Future Scheduled 2023-06-22 Screening for malignant [facility] 10:11:14 neoplasm of cervix Hospital (procedure) [code = 430425174] Future Scheduled 2023-06-22 BREAST CANCER SCREENING [facility] 10:11:14 [code = BREAST CANCER Hospit al SCREENING] Future Scheduled 2023-06-22 Screening for malignant [facility] 10:11:14 neoplasm of colon Hospital (procedure) [code = 530052254] Future Scheduled 2023-06-22 SHINGLES VACCINES (1 of [facility] 10:11:14 2) [code = SHINGLES Hospital VACCINES (1 of 2)] Future Scheduled 2023-06-22 Screening for malignant [facility] 10:11:14 neoplasm of colon Hospital (procedure) [code = 055953865] Future Scheduled 2023-06-22 Screening for malignant [facility] 10:11:14 neoplasm of colon Hospital (procedure) [code = 667609653] Future Scheduled 2023-06-22 INFLUENZA VACCINE [code [facility] 10:11:14 = INFLUENZA VACCINE] Hospita l Diagnostic Test 2023-04-12 CMP, serum or plasma [place] [facility] Pending 00:00:00 [code = CMP, serum or Urolog y plasma] Diagnostic Test 2023-04-12 urinalysis, dipstick [place] [facility] Pending 00:00:00 [code = urinalysis, Urology dipstick] Future Scheduled 2022-11-[address] [facility] 00:00:00 (12+) [code = DEPRESSION Med [facility] SCREENING (12+)] Future Scheduled 2010 SHINGLES VACCINES ([address] [facility] 00:00:00 2) [code = SHINGLES Medical Center VACCINES (1 of 2)] Future Scheduled 1981 Screening for malignant [facility] Test 00:00:00 neoplasm of cervix Medical C enter (procedure) [code = 596365215] Future Scheduled 1978 HEPATITIS C [facility]00 [code = HEPATITIS C Medical Center SCREENING] Future Scheduled [address] [facility] 00:00:00 virus screening Medical Cent er (procedure) [code = 706766854] Future Scheduled 1961-06-11 COVID-19 VACCINE (#1[facility] 00:[facility]00 [code = COVID-19 VACCINE Med [facility] (#1)] Future Scheduled 1960 Screening for malignant [facility] Test 00:00:00 neoplasm of breast Medical C enter (procedure) [code = 482778530] Future Scheduled 1960 CT Colonography (combo) [facility] Test 00:00:00 [code = CT Colonography [facility] Center (combo)] Future Scheduled 1960 Screening for malignant [facility] Test 00:00:00 neoplasm of colon Medical Ce nter (procedure) [code = 957513427] Future Scheduled 1960 Screening for malignant [facility] Test 00:00:00 neoplasm of colon Medical Ce nter (procedure) [code = 198436164] Future Scheduled 1960 Screening for malignant [facility] Test 00:00:00 neoplasm of colon Medical Ce nter (procedure) [code = 211450900] Future Scheduled 1960 Screening for malignant [facility] Test 00:00:00 neoplasm of colon Medical Ce nter (procedure) [code = 003129107] Future Scheduled 1960 Sigmoidoscopy [code = [facility] S[facility]oscopy] Medical Cente r Future Appointment 2023-10-12 Rakel Harrington [facility] 00:00:00 [address]; , [place], [facility] [address] Future Appointment 2023-10-11 Rakel Harrington [facility] 13:00:00 [address]; , [place], [facility] [place] [address] Encounters Start End Encounter Admission Attending Care Care Encounter Source Date/Time Date/Time Type Type Clinicians Facility Department ID 2023-06-14 2023-06-15 Outpatient ER EVARISTO PALM Emergency [id number] [facility] 12:04:00 14:16:00 QUINCY 2023-06-14 2023-06-[address]ayo [facility] [id number] [facility] [facility] 12:[facility] 2023-06-[address] [facility] [id number] 09:20:00 11:38:00 [facility] 2023-06-14 2023-06-[address] [facility] [id number] [facility] 16:31:48 23:59:00 [facility]NOTE 3] 2023-06-14 2023-06-14 [facility] Sage Pelayo [facility] [id number] 15:50:00 23:59:00 [facility] 2023-06-14 2023-06-[address] [facility] [id number] SLE 12:30:38 12:30:38 , DOLORES 2023-06-14 2023-06-[address] [facility] [id number] 00:00:00 00:00:00 Only [facility] 2023-06-14 2023-06-14 Travel [facility] [id number] [facility] 00:[facility]00 00:00:00 [facility] 2023-04-12 2023-04-12 Outpatient [facility] [id number] [place] 00:00:00 00:00:00 [id number] [facility] 2023-04-12 2023-04-12 Outpatient Sutton[facility] [id number] [place] 00:00:00 00:00:00 [id number] [facility] 2023-04-12 2023-04-12 Jemal Paulino [facility] [place] - [id number] [place] 00:00:00 00:00:00 Nemesio Jacobs MD: [id number] [facility] [place] [address], [place] [address] , Ph. 2023-04-06 2023-04-06 Outpatient Sutton[facility]M [facility] [id number] [place] 00:00:00 00:00:00 42830 [facility] 2022-12-17 2022-12-17 Outpatient [facility]M [facility] [id number] [place] 00:00:00 00:00:00 76799 [facility] 2022-12-02 2022-12-02 Outpatient Sutton[facility]M [facility] [id number] [place] 00:00:00 00:00:00 [id number] [facility] 2022-12-02 2022-12-02 Jemal Paulino [facility] [place] - [id number] [place] 00:00:00 00:00:00 Nemesio Jacobs MD: [id number] [facility]rology [facility] [address], [place] [address] , Ph. 2022-11-26 2022-11-26 Outpatient Sutton_M [facility] [id number] [place] 00:00:00 00:00:00 03974 [facility] 2022-08-05 2022-08-05 Outpatient Sutton_M U [facility] [id number] [place] 00:00:00 00:00:00 [id number] [facility] 2022-08-05 2022-08-05 Jemal Paulino [facility] [place] - [id number] [place] 00:00:00 00:00:00 Nemesio Jacobs MD: [id number] [facility] [place] [address], [place] [address] , Ph. 2022-07-27 2022-07-27 Patient Jarred, 1.2.840.1 [id number] Methodi 00:00:00 00:00:00 Outreach Jenelle [address]48.1.[address] 3.430.2.7 Hospit a .3.157378 l .8 2022-07-27 2022-07-[address] [facility], 1.2.840.1 [id number] Methodi 00:00:00 00:00:00 Outreach Jenelle [address]6965.1.[address] 3.430.2.7 Hospit a .3.492283 l .8 2022-07-21 2022-07-24 [facility], 1.2.840.1 [id number] Methodi 10:07:00 17:18:00 Encounter Jemal Paulino 30428.1.[address] 3.430.2.7 Hospit a .3.959460 l .8 2022-07-21 2022-07-24 [facility], 1.2.840.1 [id number] Methodi 10:07:00 17:18:00 Encounter Jemal Paulino 16793.1.[address] 3.430.2.7 Hospit a .3.351553 l .8 2022-07-22 2022-07-22 [facility] [id number] [place] 00:00:00 00:00:00 53328 [facility] 2022-07-21 2022-07-21 [facility] 1.2.840.1 [id number] Methodi 12:30:00 17:30:00 Jemal Paulino 46345.1.1 258 s t 3.430.2.7 Hospit a .3.754220 l .8 2022-07-21 2022-07-21 [facility] 1.2.840.1 [id number] Methodi 12:30:00 17:30:00 Jemal Paulino 61897.1.1 258 s t 3.430.2.7 Hospit a .3.934607 l .8 2022-07-21 2022-07-21 Anesthesia Ad Quintana 1.2.840.1 [id number] Methodi 12:01:00 16:38:00 Event Silvia Panda 69356.1.[address] 3.430.2.7 Hospit a .3.782397 l .8 2022-07-21 2022-07-21 Anesthesia Ad Quintana 1.2.840.1 [id number] Methodi 12:01:00 16:38:00 Julia Silvia Panda 81779.1.[address] 3.430.2.7 Hospit a .3.542170 l .8 2022-07-21 2022-07-21 Outpatient Shmuel Lakeisha [facility] [id number] 00:00:00 00:00:00 Jemal Paulino [id number] 2022-07-21 2022-07-21 Jemal Paulino [facility] [place] - [id number] [place] 00:00:00 00:00:00 Nemesio Jacobs MD: [id number] [facility] [place] [facility] [address] [facility], [place] [address] , Ph. 2022-07-16 2022-07-16 Pre-Admiss Jemal Jacobs 1.2.840.1 10 [id number] Methodi 09:30:00 10:30:00 Silvia Henson 78761.1.[address] Testing 3.430.2.7 Hospit a .3.417496 l .8 2022-07-16 2022-07-16 Pre-Admiss Jemal Jacobs 1.2.840.1 10 [id number] Methodi 09:30:00 10:30:00 Silvia Henson 83208.1.[address] Testing 3.430.2.7 Hospit a .3.004666 l .8 2022-07-16 2022-07-16 Travel 1.2.840.1 1.2.987.752 [id number] Methodi 00:00:00 00:00:[address] 3.430.2.7 0.2.7.3.698 Ho spita .3.065177 084.8 l .8 2022-07-16 2022-07-16 Travel 1.2.840.1 1.2.254.829 [id number] Methodi 00:00:00 00:00:[address] 3.430.2.7 0.2.7.3.698 Ho spita .3.058808 084.8 l .8 2022-07-14 2022-07-14 Pre-Admiss Jemal Jacobs 1.2.840.1 10 [id number] Methodi 09:30:00 10:30:00 Silvia Henson 42164.1.[address] Testing 3.430.2.7 Hospit a .3.976271 l .8 2022-07-14 2022-07-14 Pre-Admiss Jemal Jacobs 1.2.840.1 10 [id number] Methodi 09:30:00 10:30:00 Silvia Henson 44077.1.[address] Testing 3.430.2.7 Hospit a .3.640152 l .8 2022-07-07 2022-07-07 Travel 1.2.840.1 1.2.353.284 5708 [id number] Methodi 00:00:00 00:00:[address] 3.430.2.7 0.2.7.3.698 Ho spita .3.260583 084.8 l .8 2022-07-07 2022-07-07 Travel 1.2.840.1 1.2.725.089 1789 [id number] Methodi 00:00:00 00:00:[address] 3.430.2.7 0.2.7.3.698 Ho spita .3.163428 084.8 l .8 2022-06-19 2022-06-19 [facility] [id number] -202 [place] 00:00:00 00:00:00 [address] [facility] 2022-06-04 2022-06-04 Outpatient [facility] U [id number] -[id number] [place] 00:00:00 00:00:00 [id number] [facility] 2022-06-03 2022-06-03 Outpatient [facility] HMU [id number] [place] 00:00:00 00:00:00 [id number] [facility] 2022-06-03 2022-06-03 Outpatient Shmuel, U HMU [id number] [id number] 00:00:00 00:00:00 Jemal Paulino [id number] 2022-06-03 2022-06-03 Jemal Paulino [facility] [place] [id number] [place] 00:00:00 00:00:00 Nemesio Jacobs MD: [address] [facility] [place] [facility] [place] [address], [place] [address] , Ph. 2022-06-02 2022-06-02 Outpatient [facility] U [id number] [place] 05:04:00 05:04:00 [id number] [facility] 2022-05-19 2022-05-19 Outpatient [facility] U [id number] -202 [place] 10:30:00 10:30:00 [id number] [facility] 2022-05-12 2022-05-12 Outpatient [facility] U [id number] -202 [place] 10:00:00 10:00:00 [id number] [facility] 2022-05-12 2022-05-12 Jemal Paulino [facility] [place] - [id number] [place] 00:00:00 00:00:00 Nemesio Jacobs MD: [address] [facility] [place] [facility] [place] [address], [place] [address] , Ph. 2022-05-12 2022-05-12 Outpatient Shmuel, U U [id number] 00:00:00 00:00:00 Jemal Paulino [id number] 2022-05-08 2022-05-08 Outpatient Shmuel[facility]M [facility] U [id number] -202 [place] 08:02:00 08:02:00 [id number] [facility] 2022-05-07 2022-05-07 Outpatient Shmuel_M [facility] U [id number] - [place] 09:59:00 09:59:00 26074 [facility] 2021-06-18 2021-06-18 Telephone Nurse, Patrice Perez [id number] [facility] 00:00:00 00:00:00 Urgent Pediatric 350.1.13.10 ity of [place] [id number] [address] [facility] 2021-06-18 2021-06-18 Telephone Nurse, Patrice Perez [id number] 00:00:00 00:00:00 Urgent Pediatric 350.1.13.10 s and 4.2.7.2.686 Adult [id number] [address] 2021-06-14 2021-06-14 Laboratory Lab, [facility] Fam Pob I [facility] 1.2. [id number] [id number] Univers 13:44:00 14:04:00 Only Sheron Leigh 350.1.13.10 ity of [place] 4.2.7.2.686 [place] as Professio [phone] Mo dical nal [address] 2021-06-14 2021-06-14 Laboratory Lab, [facility] 1.2.840.114 [id number] 13:44:00 14:04:00 Only Fam Pob I Health 350.1.13.10 [place] 4.2.7.2.686 Professio [phone] nal [facility] Office [address] 2021-06-14 2021-06-14 Outpatient R LU [facility] [id number] Univers 13:40:00 13:40:00 SHERON dixon o f [facility] 2021-06-14 2021-06-14 Orders Doctor MAZARIEGOS 1.2.840.114 [id number] Univers 00:00:00 00:00:00 Only Unassigned, ITA 350.1.13.10 ity of [facility] 4.2.7.2.686 [place] as [phone] [facility] mainor [address] 2021-06-14 2021-06-14 Orders Doctor DELILAH 1.2.840.114 [id number] 00:00:00 00:00:00 Only Unassigned, ITA 350.1.13.10 [facility] 4.2.7.2.686 [id number] 009 Results Test Description Test Time Test Comments Results Result Comments Source HEMOGLOBIN A1C 2023-06-15 12:23:31 Test Item Value Reference Range Interpretation Comme nts HEMOGLOBIN A1C ELECTROPHORESIS 5.9 % See_Comment H [Automated message] The system ([employer]) (test code = 3811) which generated this result transmitted ref erence range: <=5.6%. The ref erence range was not used to int erpret this result as normal/abnor mal. "The A1c is measured using a NGSP-certified method. HbA1c value equal to or greater than 6.5% as thediagnosis cutoff for diabetes. An HbA1c value of 5.7- 6.4% indicates increased risk for diabetes (prediabetes)."Basket Weaver ID - ADMPOC- Glucose [id number] 10:29:15 Test Item Value Reference Range Interpretation Comments POC-Glucose Meter (test 94 mg/dL 70-110 : TE STED AT [facility] code = 1538) [address] [facility], 770 30: Basket Weaver/Techni bk ID = [id number] for DOREEN KENT Lab Interpretation (test Normal code = 35395-3) [facility] [id number] 10:29:15 Test Item Value Reference Range Interpretation Comments POC-GLUCOSE METER 94 mg/dL 70-110 : TESTED A T [facility] 6720 (BEAKER) (test code = LISA Wing [facility], 1538) [address]: Basket Weaver/Techni bk ID = [id number] for DOREEN LYN BASIC METABOLIC [id number] 06:30:20 Test Item Value Reference Range Interpretation Comments SODIUM (BEAKER) 136 meq/L 136-145 (test code = 381) POTASSIUM 4.0 meq/L 3.5-5.1 (BEAKER) (test code = 379) CHLORIDE (BEAKER) 104 meq/L 98-107 (test code = 382) CO2 (BEAKER) 24 meq/L 22-29 (test code = 355) BLOOD UREA 25 mg/dL 7-21 H NITROGEN (BEAKER) (test code = 354) CREATININE 1.11 mg/dL 0.57-1.25 (BEAKER) (test code = 358) GLUCOSE RANDOM 110 mg/dL 70-105 H (BEAKER) (test code = 652) CALCIUM (BEAKER) 10.9 mg/dL 8.4-10.2 H (test code = 697) EGFR (BEAKER) 56 Interpretatio n of eGFR (test code = mL/min/1.73 values Stage D escription 1092) sq m Result G1 Zoila l or high >=90 G2 Mildly decreased 60-89 G3a Mildl y to moderately 45-5 9 G3b Moderately to s everely 30-44 G4 Severl y decreased 15-29 G5 Kidney failure <15Reported eGF R is based on the CKD-EPI 2020 equation that d oes not use a race coefficientEsti mated GFR is not as accur ate as Creatinine Nikki jonathan in predicting glom erular filtration rate . Estimated GFR is not appl icable for dialysis patien ts LIPID [id number] 06:30:20 Test Item Value Reference Range Interpretation Comments TRIGLYCERIDES (BEAKER) (test code = 120 mg/dL 540) CHOLESTEROL (BEAKER) (test code = 149 mg/dL 631) HDL CHOLESTEROL (BEAKER) (test code 56 mg/dL = 976) LDL CHOLESTEROL CALCULATED (BEAKER) 69 mg/dL (test code = 633) Triglyceride Reference Range: Low Risk <150 Borderline 150-199 High Risk 200- 499 Very High Risk >=500Cholesterol Reference Range: Low Risk <200 Borderline 200-239 High Risk >240HDL Cholesterol Reference Range: Low Risk >=60 High Risk <40LDL Cholesterol Reference Range: Optimal <100 Near Optimal 100-129 Borderline 130-159 High 160-189 Very High >=190CBC (HEMOGRAM ONLY)2023-06-15 05:53:05 Test Item Value Reference Range Interpretation Comments WHITE BLOOD CELL COUNT (BEAKER) 7.4 K/ L 3.5-10.5 (test code = 775) RED BLOOD CELL COUNT (BEAKER) 4.17 M/ L 3.93-5.22 (test code = 761) HEMOGLOBIN (BEAKER) (test code = 11.6 GM/DL 11.2-15.7 410) HEMATOCRIT (BEAKER) (test code = 35.2 % 34.1-44.9 411) MEAN CORPUSCULAR VOLUME (BEAKER) 84 fL 79-95 (test code = 753) MEAN CORPUSCULAR HEMOGLOBIN 27.8 pg 25.6-32.2 (BEAKER) (test code = 751) MEAN CORPUSCULAR HEMOGLOBIN CONC 33.0 GM/DL 32.2-35.5 (BEAKER) (test code = 752) RED CELL DISTRIBUTION WIDTH 14.2 % 11.7-14.4 (BEAKER) (test code = 412) PLATELET COUNT (BEAKER) (test 255 K/CU MM 150-450 code = 756) MEAN PLATELET VOLUME (BEAKER) 9.5 fL 9.4-12.3 (test code = 754) NUCLEATED RED BLOOD CELLS 0 /100 WBC 0-0 (BEAKER) (test code = 413) HIGH SENSITIVITY TROPONIN [id number] 21:13:45 Test Item Value Reference Range Interpretation Comments HIGH SENSITIVITY < pg/ml See_Comment [Automated message] TROPONIN I (test code = The system which [id number]) generated this result transmitted ref erence range: <=17. Th e reference range was not used to interpr et this result as normal/abnormal . Basket Weaver ID - AAHAMIDRibbon STAT High Sensitivity Troponin-I results should be used in conjunction with other diagnostic information such as ECG, clinical observations and information, and patient symptoms to aid in the diagnosis of MD.HIGH SENSITIVITY TROPONIN [id number] 19:08:28 Test Item Value Reference Range Interpretation Comments HIGH SENSITIVITY < pg/ml See_Comment [Automated message] TROPONIN I (test code = The system which [id number]) generated this result transmitted ref erence range: <=17. Th e reference range was not used to interpr et this result as normal/abnormal . Basket Weaver ID - AAHAMIDRibbon STAT High Sensitivity Troponin-I results should be used in conjunction with other diagnostic information such as ECG, clinical observations and information, and patient symptoms to aid in the diagnosis of MD.CTA CHEST FOR PULMONARY [id number] 17:55:51 [facility] : 1960 Sex: FCTChest PE Protocol dated 06/14/2023 Clinical information: Unlisted Reason for ExamCP, SOB, elevated d-dimer, hx renal cancer Technique: CT scan of the chest with intravenous contrast. Dosemodulation, interactive reconstruction, and/or weight based adjustmentof the mA/kV was utilized to reduce the radiation dose to as low asreasonably achievable. Precontrast axial images were obtained at pulmonary trunk level for thepurpose of monitoring subsequent IV contrast. Postcontrast axial images of the chest were obtained from above the archlevel to the lower chest at maximum enhancement of pulmonary artery.Delayed axial images of the entire chest were obtained subsequently. Coronal and sagittal reconstructionwere provided. MIP images wereprovided to better assess the vasculature.Comment: Heart is normal in size. Greater vessels are unremarkable. Nofilling detect is noted in the pulmonary trunk or pulmonaryarteries. No adenopathy is noted in the mediastinum or perihilar region. Tracheaand mainstem bronchiare patent. Both lungs are clear. No nodular, mass lesion or airspace is present.No pleural effusionor pleural base mass is seen. IMPRESSION:Impression: No pulmonary thromboembolism. Electronically Signed By: Ye Scott 17:57 CDTWorkstation Name: [id number], [id number] 17:03:02 Test Item Value Reference Range Interpretation Comments FREE T4 (BEAKER) (test code = 655) 1.44 ng/dL 0.70-1.48 Basket Weaver ID - AAHAMIDTSH/FREE T4 IF [id number] 16:45:55 Test Item Value Reference Range Interpretation Comments THYROID STIMULATING HORMONE 0.024 uIU/mL 0.350-4.940 L (BEAKER) (test code = 772) Basket Weaver ID - AAHAMIDXR CHEST 2 [id number] 14:26:17 [facility] 1960 Sex: FINDICATION: CHEST PAINCOMPARISON: NoneTECHNIQUE: Frontal and lateral views of the chest.FINDINGS: Lines,tubes, and devices: None.Lungs and pleura: Clear lungs. No effusion.Heart and mediastinum: Normal heart size. Unremarkable mediastinalcontours.Osseous structures: No acute abnormality. Moderate spondylosis and facetarthropathy are present within the spine.Other: None.IMPRESSION:No acute intrathoracic a bnormality.Electronically Signed By: Kiko Zamora06/14/2023 14:28 CDTWorkstation Name: [id number] NATRIURETIC FACTOR (BNP)2023-06-14 14:17:47 Test Item Value Reference Range Interpretation Comments B-TYPE NATRIURETIC PEPTIDE (BEAKER) < pg/mL 0-100 (test code = 700) BASIC METABOLIC [id number] 14:17:25 Test Item Value Reference Range Interpretation Comments SODIUM (BEAKER) 135 meq/L 136-145 L (test code = 381) POTASSIUM 4.2 meq/L 3.5-5.1 (BEAKER) (test code = 379) CHLORIDE (BEAKER) 103 meq/L 98-107 (test code = 382) CO2 (BEAKER) 21 meq/L 22-29 L (test code = 355) BLOOD UREA 19 mg/dL 7-21 NITROGEN (BEAKER) (test code = 354) CREATININE 1.00 mg/dL 0.57-1.25 (BEAKER) (test code = 358) GLUCOSE RANDOM 90 mg/dL 70-105 (BEAKER) (test code = 652) CALCIUM (BEAKER) 11.4 mg/dL 8.4-10.2 H (test code = 697) EGFR (BEAKER) 64 Interpretatio n of eGFR (test code = mL/min/1.73 values Stage D escription 1092) sq m Result G1 Zoila l or high >=90 G2 Mildly decreased 60-89 G3a Mildl y to moderately 45-5 9 G3b Moderately to s everely 30-44 G4 Severl y decreased 15-29 G5 Kidney failure <15Reported eGF R is based on the CKD-EPI 2020 equation that d oes not use a race coefficientEsti mated GFR is not as accur ate as Creatinine Nikki jonathan in predicting glom erular filtration rate . Estimated GFR is not appl icable for dialysis patien ts HIGH SENSITIVITY TROPONIN [id number] 14:08:15 Test Item Value Reference Range Interpretation Comments HIGH SENSITIVITY < pg/ml See_Comment [Automated message] TROPONIN I (test code = The system which [id number]) generated this result transmitted ref erence range: <=17. Th e reference range was not used to interpr et this result as normal/abnormal . The [employer] P[employer]ING MACHINE TENDER STAT High Sensitivity Troponin-I results should be used in conjunction with other diagnostic information such as ECG, clinical observations and information, and patient symptoms to aid inthe diagnosis of MD.D-DIMER 2023-06-14 13:52:51 Test Item Value Reference Range Interpretation Comments D-DIMER QUANTITATIVE (BEAKER) 0.69 MG/L FEU <0.50 H (test code = 671) Intended Use: The D-Dimer Assay can be used to aid in the diagnosis of Deep Vein Thrombosis (DVT) and Pulmonary Embolism Disease (PED).In patients with low pre- test probability, various studies concerning STA Liatest D-dimer test have reported that with a cutoff value of 0.50 MG/L FEU, the Negative Predictive Value (NPV) regarding the exclusion of thrombosis is within 95-100% range. PROTHROMBIN TIME/[id number] 13:50:10 Test Item Value Reference Range Interpretation Comments PROTIME (BEAKER) 14.0 seconds 11.9-14.2 (test code = 759) INR (BEAKER) (test 1.15 See_Comment [Automat ed message] code = 370) The system [employer] generated this result transmitted ref erence range: <=5.90. The reference range was not used to int erpret this result as normal/abnormal . RECOMMENDED COUMADIN/WARFARIN INR THERAPY RANGESSTANDARD DOSE: 2.0 - 3.0 Includes: PROPHYLAXIS for venous thrombosis, systemic embolization; TREATMENT for venous thrombosis and/or pulmonary embolus.HIGH RISK: Target INR is 2.5-3.5 for patients with mechanical heart valves.CBC W/PLT COUNT & AUTO [id number] 13:40:10 Test Item Value Reference Range Interpretation Comments WHITE BLOOD CELL COUNT (BEAKER) 8.6 K/ L 3.5-10.5 (test code = 775) RED BLOOD CELL COUNT (BEAKER) 4.53 M/ L 3.93-5.22 (test code = 761) HEMOGLOBIN (BEAKER) (test code = 12.7 GM/DL 11.2-15.7 410) HEMATOCRIT (BEAKER) (test code = 38.0 % 34.1-44.9 411) MEAN CORPUSCULAR VOLUME (BEAKER) 84 fL 79-95 (test code = 753) MEAN CORPUSCULAR HEMOGLOBIN 28.0 pg 25.6-32.2 (BEAKER) (test code = 751) MEAN CORPUSCULAR HEMOGLOBIN CONC 33.4 GM/DL 32.2-35.5 (BEAKER) (test code = 752) RED CELL DISTRIBUTION WIDTH 14.1 % 11.7-14.4 (BEAKER) (test code = 412) PLATELET COUNT (BEAKER) (test 281 K/CU MM 150-450 code = 756) MEAN PLATELET VOLUME (BEAKER) 9.4 fL 9.4-12.3 (test code = 754) NUCLEATED RED BLOOD CELLS 0 /100 WBC 0-0 (BEAKER) (test code = 413) NEUTROPHILS RELATIVE PERCENT 64 % (BEAKER) (test code = 429) LYMPHOCYTES RELATIVE PERCENT 28 % (BEAKER) (test code = 430) MONOCYTES RELATIVE PERCENT 6 % (BEAKER) (test code = 431) EOSINOPHILS RELATIVE PERCENT 2 % (BEAKER) (test code = 432) BASOPHILS RELATIVE PERCENT 0 % (BEAKER) (test code = 437) NEUTROPHILS ABSOLUTE COUNT 5.49 K/ L 1.56-6.13 (BEAKER) (test code = 670) LYMPHOCYTES ABSOLUTE COUNT 2.43 K/ L 1.18-3.74 (BEAKER) (test code = 414) MONOCYTES ABSOLUTE COUNT (BEAKER) 0.48 K/ L 0.24-0.36 H (test code = 415) EOSINOPHILS ABSOLUTE COUNT 0.17 K/ L 0.04-0.36 (BEAKER) (test code = 416) BASOPHILS ABSOLUTE COUNT (BEAKER) 0.02 K/ L 0.01-0.08 (test code = 417) IMMATURE GRANULOCYTES-RELATIVE 0.30 % 0.00-1.00 PERCENT (BEAKER) (test code = 2801) Urinalysis macro (dipstick) panel - [id number] 12:42:00 Test Item Value Reference Range Interpretation Comments leukocytes (test code trace neg = leukocytes) urobilinogen (test 0.2 E.U./dL sm amt (.5-1mg/dL) code = urobilinogen) protein (test code = negative See_Comment [Autom ated protein) message] The sy stem which generated this result transmitted reference range : <=150 mg/d. The reference range was not used to interpret this result as normal/abnormal . pH (test code = pH) 5.5 4.5-8 blood (test code = negative See_Comment [Automat ed blood) message] The sy stem which generated this result transmitted reference range : <=3 RBC. The reference range was not used to interpret this result as normal/abnormal . specific gravity 1.020 1.005-1.025 (test code = specific gravity) ketone (test code = negative none ketone) bilirubin (test code negative neg = bilirubin) glucose (test code = negative See_Comment [Autom ated glucose) message] The sy stem which generated this result transmitted reference range : <=130 mg/d. The reference range was not used to interpret this result as normal/abnormal . color (test code = yellow yellow color) clarity (test code = clear clear or cloudy clarity) nitrite (test code = negative neg nitrite) [facility]rology[facility]inal[facility] macro (dipstick) panel - [id number] 13:37:00 Test Item Value Reference Range Interpretation Comments leukocytes (test code negative neg = leukocytes) urobilinogen (test 0.2 E.U./dL sm amt (.5-1mg/dL) code = urobilinogen) protein (test code = negative See_Comment [Autom ated protein) message] The sy stem which generated this result transmitted reference range : <=150 mg/d. The reference range was not used to interpret this result as normal/abnormal . pH (test code = pH) 6.0 4.5-8 blood (test code = negative See_Comment [Automat ed blood) message] The sy stem which generated this result transmitted reference range : <=3 RBC. The reference range was not used to interpret this result as normal/abnormal . specific gravity >=1.030 1.005-1.025 (test code = specific gravity) ketone (test code = negative none ketone) bilirubin (test code negative neg = bilirubin) glucose (test code = negative See_Comment [Autom ated glucose) message] The sy stem which generated this result transmitted reference range : <=130 mg/d. The reference range was not used to interpret this result as normal/abnormal . color (test code = yellow yellow color) clarity (test code = clear clear or cloudy clarity) nitrite (test code = negative neg nitrite) [facility] UrologySurgical pathology [id number] 18:21:15 Test Item Value Reference Range Interpretation Comments Case number (test code = [id number]) Surgical pathology See link below for report (test code = PDF Lab Report 2255) Result status (test code This is Final Report = [id number]) [facility] [id number] [facility] [id number] 18:21:15 Test Item Value Reference Range Interpretation Comments Case number (test code = [id number]) Surgical pathology See link below for report (test code = PDF Lab Report 2255) Result status (test code This is Final Report = [id number]) for [id number] [facility] [id number] 21:39:00 Test Item Value Reference Range Interpretation Comments POC glucose (test code = 190 mg/dL 65-99 H Ope rator Name: [id number]) Demetrius Lind ice ID: [id number] able: [facility] Notified rigging helper Interpretation (test Abnormal code = 16194-4) [facility] [id number] 21:39:00 Test Item Value Reference Range Interpretation Comments POC glucose (test code = 190 mg/dL 65-99 H Ope rator Name: [id number]) Demetrius Lind ice ID: [id number] able: [facility] Notified rigging helper Interpretation (test Abnormal code = 20313-7) [facility], [id number] 20:39:00 Test Item Value Reference Range Interpretation Comments Lactic acid, syringe (test code = 1.0 mmol/L 0.5-2.2 78639-6) [facility] NorthwestPotassium, [id number] 20:39:00 Test Item Value Reference Range Interpretation Comments Potassium, syringe 4.1 See_Comment [Automat ed message] The (test code = 2008) system [facility] generated this result tra nsmitted reference range : 3.5 - 5.0 mEq/L. The refe rence range was not used to interpret this result as normal/abnormal . [facility], [id number] 20:39:00 Test Item Value Reference Range Interpretation Comments Sodium, syringe (test 137 See_Comment [Auto mated message] The code = 2947-0) system which generated this result tra nsmitted reference range : 135 - 148 mEq/L. The refe rence range was not used to interpret this result as normal/abnormal . [facility] NorthwestArterial blood gas, [id number] 20:39:00 Test Item Value Reference Range Interpretation Comments pH, arterial (test code 7.31 7.35-7.45 L = 2744-1) pCO2, arterial (test 43 See_Comment [Autom ated message] code = 2019-8) The system [facility] generated this result transmitted ref erence range: 35 - 45 mmHg. The reference r jose a was not used to interpret this result as normal/abnor mal. pO2, arterial (test code 141 See_Comment H [A utomated message] = 2703-7) The system [facility] generated this result transmitted ref erence range: 80 - 90 mmHg. The reference r jose a was not used to interpret this result as normal/abnor mal. Temperature, Celsius 36.3 Degrees C (test code = 8310-5) O2 saturation, arterial 99 % 95-100 (test code = 2708-6) pH, arterial corrected 7.32 (test code = 58559-9) pCO2, arterial corrected 42 mmHg (test code = 35292-3) pO2, arterial corrected 137 mmHg (test code = 16422-1) Base excess, arterial -4 See_Comment L [Auto mated message] (test code = 1925-7) The [facility] tem which generated this result transmitted ref erence range: -2 - 2 m Eq/L. The reference r jose a was not used to interpret this result as normal/abnor mal. Lab Interpretation (test Abnormal code = 53003-0) [facility] NorthwestGlucose level, [id number] 20:39:00 Test Item Value Reference Range Interpretation Comments Glucose, syringe (test code = 180 mg/dL 65-99 H 2345-7) Lab Interpretation (test code = Abnormal 36720-7) [facility] NorthwestHemoglobin, [id number] 20:39:00 Test Item Value Reference Range Interpretation Comments Hemoglobin, syringe (test code = 10.8 g/dL 12.0-16.0 L 718-7) Lab Interpretation (test code = Abnormal 29458-7) [facility] NorthwestIonized calcium, [id number] 20:39:00 Test Item Value Reference Range Interpretation Comments Ionized calcium, arterial (test 1.27 mmol/L 1.11-1.32 code = 14687-5) [facility] NorthwestArterial blood gas, [id number] 20:39:00 Test Item Value Reference Range Interpretation Comments pH, arterial (test code 7.31 7.35-7.45 L = 2744-1) pCO2, arterial (test 43 See_Comment [Autom ated message] code = 2019-8) The system [facility] generated this result transmitted ref erence range: 35 - 45 mmHg. The reference r jose a was not used to interpret this result as normal/abnor mal. pO2, arterial (test code 141 See_Comment H [A utomated message] = 9233-7) The system [facility] [employer] generated this result transmitted ref erence range: 80 - 90 mmHg. The reference r jose a was not used to interpret this result as normal/abnor mal. Temperature, Celsius 36.3 Degrees C (test code = 8310-5) O2 saturation, arterial 99 % 95-100 (test code = 2708-6) pH, arterial corrected 7.32 (test code = 51535-8) pCO2, arterial corrected 42 mmHg (test code = 76110-1) pO2, arterial corrected 137 mmHg (test code = 10932-8) Base excess, arterial -4 See_Comment L [Auto mated message] (test code = 1925-7) The s tem which generated this result transmitted ref erence range: -2 - 2 m Eq/L. The reference r jose a was not used to interpret this result as normal/abnor mal. Lab Interpretation (test Abnormal code = 10798-3) [facility] NorthwestGlucose level, [id number] 20:39:00 Test Item Value Reference Range Interpretation Comments Glucose, syringe (test code = 180 mg/dL 65-99 H 2345-7) Lab Interpretation (test code = Abnormal 48899-9) [facility], [id number] 20:39:00 Test Item Value Reference Range Interpretation Comments Hemoglobin, syringe (test code = 10.8 g/dL 12.0-16.0 L 718-7) Lab Interpretation (test code = Abnormal 58461-5) [facility] NorthwestIonized calcium, [id number] 20:39:00 Test Item Value Reference Range Interpretation Comments Ionized calcium, arterial (test 1.27 mmol/L 1.11-1.32 code = 19828-5) [facility] HospitalL[facility] acid, [id number] 20:39:00 Test Item Value Reference Range Interpretation Comments Lactic acid, syringe (test code = 1.0 mmol/L 0.5-2.2 55223-6) [facility] HospitalPotassium, [id number] 20:39:00 Test Item Value Reference Range Interpretation Comments Potassium, syringe 4.1 See_Comment [Automat ed message] The (test code = 2007) system ich generated this result tra nsmitted reference range : 3.5 - 5.0 mEq/L. The refe rence range was not used to interpret this result as normal/abnormal . [facility] [id number] 20:39:00 Test Item Value Reference Range Interpretation Comments Sodium, syringe (test 137 See_Comment [Auto mated message] The code = 2947-0) system which generated this result tra nsmitted reference range : 135 - 148 mEq/L. The refe rence range was not used to interpret this result as normal/abnormal . [facility] [id number] 16:22:00 Test Item Value Reference Range Interpretation Comments Urine culture (test SEE COMMENT Bacteriu mesfin screen code = 1785970) negative. [facility] [id number] 16:22:00 Test Item Value Reference Range Interpretation Comments Urine culture (test SEE COMMENT Bacteriu mesfin screen code = 2616608) negative. [facility] [Presence] in Respiratory specimen by [facility] with probe [id number] 15:26:43 Test Item Value Reference Range Interpretation Comments SARS-CoV-2 (COVID-19) RNA Not detected [Presence] in Respiratory specimen by [facility] with probe detection (test code = 47731-0) Whether patient is employed in a Unknown healthcare setting (test code = 93908-8) Whether the patient has symptoms Unknown related to condition of interest (test code = 76014-2) Whether the patient was Unknown hospitalized for condition of interest (test code = 62474-2) Whether the patient was admitted Unknown to intensive care unit (ICU) for condition of interest (test code = 83165-6) Whether patient resides in a Unknown congregate care setting (test code = 56143-2) status (test code = Unknown 33140-3) Date and time of symptom onset Unknown (test code = 50978-3) [facility] macro (dipstick) panel - [id number] 08:57:00 Test Item Value Reference Range Interpretation Comments leukocytes (test code negative neg = leukocytes) urobilinogen (test 0.2 E.U./dL sm amt (.5-1mg/dL) code = urobilinogen) protein (test code = negative See_Comment [Autom ated protein) message] The sy stem which generated this result transmitted reference range : <=150 mg/d. The reference range was not used to interpret this result as normal/abnormal . pH (test code = pH) 6.0 4.5-8 blood (test code = negative See_Comment [Automat ed blood) message] The sy stem which generated this result transmitted reference range : <=3 RBC. The reference range was not used to interpret this result as normal/abnormal . specific gravity 1.025 1.005-1.025 (test code = specific gravity) ketone (test code = negative none ketone) bilirubin (test code negative neg = bilirubin) glucose (test code = negative See_Comment [Autom ated glucose) message] The sy stem which generated this result transmitted reference range : <=130 mg/d. The reference range was not used to interpret this result as normal/abnormal . color (test code = yellow yellow color) clarity (test code = clear clear or cloudy clarity) nitrite (test code = negative neg nitrite) [facility]
[2023-06-22 10:53] LABS: Absolute Lymphocytes (CBC) 2.3 K/uL (0.7-4.9); Hematocrit 36.7 % (36.0-45.0); Lymphocytes % 30.5 % (15.3-44.8); MCV 85.1 fL (80-100); MPV 7.6 fL (7.6-11.3); Platelets 315 thou/uL (152-406); RBC Red Blood Cell Count 4.31 M/uL (3.86-4.86)
[2023-06-22 11:12] LABS: Albumin 3.7 g/dL (3.4-5.0); Bilirubin Direct 0.1 mg/dL (0-0.2); Bilirubin Indirect, Calculated 0.3 mg/dL (0.2-0.8); Bilirubin Total 0.4 mg/dL (0.2-1.0); Potassium 3.8 mEq/L (3.5-5.1); Protein, Total 7.6 g/dL (6.4-8.2)
--- NOTE | 2023-06-22 11:17 | RAD REPORT ---
EXAM DESCRIPTION: Holly Single View06/22/2023 11:12 am CLINICAL HISTORY: Chest pain COMPARISON: 2021 FINDINGS: The lungs appear clear of acute infiltrate. The heart is normal size IMPRESSION: No acute abnormalities displayed
--- NOTE | 2023-06-22 12:02 | RAD REPORT ---
EXAM DESCRIPTION: US - UPPER EXTREMITY VENOUS UNILATE - 06/22/2023 11:19 am CLINICAL HISTORY: Right upper extremity pain COMPARISON: None. FINDINGS: The right internal jugular, subclavian, brachial, axillary, cephalic, basilic, radial and ulnar veins demonstrate phasic signal. The veins are generally compressible. Doppler demonstrates good flow Grayscale, color and spectral analysis performed on all vessels IMPRESSION: No evidence of thrombus involving the right upper extremity
--- NOTE | 2023-06-22 12:05 | RAD REPORT ---
EXAM DESCRIPTION: USUpper Ext Artery Uni Bil06/22/2023 11:19 am CLINICAL HISTORY: Right arm pain COMPARISON: None FINDINGS: Right common carotid, subclavian, axillary, brachial, basilic, ulnar and radial arteries d emonstrate normal waveforms No significant stenosis/occlusion Doppler demonstrates good flow. Grayscale, color and spectral analysis performed on all vessels IMPRESSION: Unremarkable exam
--- NOTE | 2023-06-22 12:21 | RAD REPORT ---
EXAM DESCRIPTION: CT - Chest For Pe Angio - 06/22/2023 12:05 pm CLINICAL HISTORY: Chest pain COMPARISON: 2020 TECHNIQUE: Dynamically enhanced axial 3 mm thick images of the chest were obtained during administra tion of 100 mL Isovue 370 IV contrast. Coronal and oblique reconstruction images were generated and r eviewed. Exam utilizes a protocol for optimal evaluation of pulmonary arterial tree. Maximum intensity projections 3D imaging was utilized All CT scans are performed using dose optimization technique as appropriate and may include automated exposure control or mA/KV adjustment according to patient size. FINDINGS: A pulmonary embolus is not seen. A thoracic aortic aneurysm is not noted. A pleural effusion is not seen. A pericardial effusion is not seen. A lung consolidation is not present. IMPRESSION: Negative for a pulmonary embolism.
--- NOTE | 2023-06-22 12:46 | EDPHYS ---
Physician Documentation [facility] Name: Cindi Coats Age: 62 yrs Sex: Female : 1960 Arrival Date: 06/22/2023 Time: 10:07 Bed 7 Private MD: ED Physician Josehp Rasmussen HPI: 06/22 10:44 This 62 yrs old Female presents to ER via Ambulatory with complaints of Arm rn Pain, Arm swelling. 10:44 The patient or guardian complains of pain, that is acute. The complaints affect the rn right bicep and right antecubital area. 10:45 Onset: The symptoms/episode began/occurred yesterday. Modifying factors: The symptoms rn are alleviated by nothing. the symptoms are aggravated by movement, bending arm. Severity of symptoms: At their worst the symptoms were moderate, in the emergency department the symptoms are unchanged. The patient has not experienced similar symptoms in the past. The patient has been recently seen by a physician:. Pt reports just had heart cath in [place] 1 week ago, was doing ok, began to have right arm pain yesterday, no trauma otherwise, + bruising, no pain at wrist, majority of pain inside and around right elbow and right upper arm. No fever. No hx of dvt/PE. Told cath was clean and did not require stent. Still having intermittent episodes of chest pain, is supposed to f/u with GI for further w/u.. Historical: - Allergies: 10:26 Sulfa (Sulfonamide Antibiotics); ap3 - Home Meds: 10:26 losartan oral [Active]; Ozempic subcutaneous [Active]; ap3 - PMHx: 10:26 Hypertension; Hypothyroidism; PULMONARY HYPERTENSION; ap3 - PSHx: 10:26 back surgery; ap3 - Immunization history:: Client reports having NOT received the Covid vaccine. - Social history:: Smoking status: Patient denies any tobacco usage or history of. - Family history:: not pertinent. - Hospitalizations: : Patient was recently seen at. ROS: 10:45 Constitutional: Negative for fever, chills, and weight loss, Eyes: Negative for injury, rn pain, redness, and discharge, Cardiovascular: Negative for palpitations, and edema, Respiratory: Negative for shortness of breath, cough, wheezing, and pleuritic chest pain, Abdomen/GI: Negative for abdominal pain, nausea, vomiting, diarrhea, and constipation, MS/Extremity: + right arm pain Skin: Negative for injury, rash, and discoloration, Neuro: Negative for headache, weakness, numbness, tingling, and seizure. Exam: 10:45 Constitutional: This is a well developed, well nourished patient who is awake, alert, rn and in no acute distress. Ambulatory to room without assistance or difficulty. Head/Face: Normocephalic, atraumatic. Cardiovascular: Regular rate and rhythm. No pulse deficits. Respiratory: No increased work of breathing, no retractions or nasal flaring. Abdomen/GI: Soft, non-tender Skin: Warm, dry MS/ Extremity: Pulses equal, no cyanosis. Mild ecchymosis right volar wrist but not tender. + mild tenderness right antecubital and right bicep region. No swelling. No mass Neuro: Awake and alert, GCS 15 11:54 ECG was reviewed by the Attending Physician. rn Vital Signs: 10:24 BP 108 / 63; Pulse 66; Resp 18; Temp 98.5; Pulse Ox 98% ; Weight 99.34 kg; Pain 10/10; ap3 12:38 BP 130 / 76; Pulse 68; Resp 16; Pulse Ox 100% ; ko1 13:42 BP 134 / 72; Pulse 74; Resp 18; Pulse Ox 99% ; ko1 10:24 Pain Scale: Adult ap3 MDM: 10:15 Patient medically screened. rn 12:44 Differential diagnosis: arm pain, DVT, aneurysm, PE, radiated pain, IA. Data reviewed: rn vital signs, nurses notes, lab test result(s), EKG, radiologic studies, CT scan, ultrasound, and as a result, I will discharge patient. Counseling: I had a detailed discussion with the patient and/or guardian regarding: the historical points, exam findings, and any diagnostic results supporting the discharge/admit diagnosis, lab results, radiology results, the need for outpatient follow up, to return to the emergency department if symptoms worsen or persist or if there are any questions or concerns that arise at home. Special discussion: I discussed with the patient/guardian in detail that at this point there is no indication for admission to the hospital. It is understood, however, that if the symptoms persist or worsen the patient needs to return immediately for re-evaluation. ED course: NO acute findings in workup including CT PE as well as venous and arterial ultrasound. Trop neg. ECG normal. Will dc home with return precautions and to f/u with GI as planned. . 06/22 10:31 Order name: Basic Metabolic Panel; Complete Time: 11:15 rn 06/22 10:31 Order name: CBC with Diff; Complete Time: 11:15 rn 06/22 10:31 Order name: LFT's; Complete Time: 11:15 rn 06/22 10:31 Order name: NT PRO-BNP; Complete Time: 11:15 rn 06/22 10:31 Order name: Troponin HS; Complete Time: 11:15 rn 06/22 10:31 Order name: XRAY Chest (1 view); Complete Time: 11:44 rn 06/22 10:43 Order name: UPPER EXTREMITY VENOUS UNILATE; Complete Time: 12:22 EDMS 06/22 10:43 Order name: Upper Ext Artery Uni Brett; Complete Time: 12:22 EDMS 06/22 11:48 Order name: CT Chest For PE Angio; Complete Time: 12:22 rn 06/22 10:31 Order name: EKG; Complete Time: 10:31 rn 06/22 10:31 Order name: Cardiac monitoring; Complete Time: 10:34 rn 06/22 10:31 Order name: EKG - Nurse/Tech; Complete Time: 11:35 rn 06/22 10:31 Order name: IV Saline Lock; Complete Time: 10:44 rn 06/22 10:31 Order name: Labs collected and sent; Complete Time: 10:44 rn 06/22 10:31 Order name: O2 Per Protocol; Complete Time: 10:34 rn 06/22 10:31 Order name: O2 Sat Monitoring; Complete Time: 10:34 rn EC:54 Rate is 60 beats/min. Rhythm is regular. QRS [place] is Normal. MO interval is normal. QRS rn interval is normal. QT interval is normal. No Q waves. T waves are Normal. No ST changes noted. Clinical impression: Normal ECG. Interpreted by me. Reviewed by me. Administered Medications: No medications were administered Disposition Summary: 06/22/23 12:46 Discharge Ordered Location: Home rn Problem: new rn Symptoms: have improved rn Condition: Stable rn Diagnosis - Pain in right upper arm rn Followup: rn - With: Private Physician - When: As needed - Reason: Recheck today's complaints, Re-evaluation by your physician Discharge Instructions: - Discharge Summary Sheet rn - Pain Without a Known Cause rn Forms: - Medication Reconciliation Form rn - Thank You Letter rn - Antibiotic broomcorn sorter - Prescription Opioid Use rn - Patient Portal Instructions rn - Leadership Thank You Letter rn - Work release form ko1 Signatures: Dispatcher [employer] EDMS Joseph Rasmussen MD MD rn Prokisch, Amanda, RN RN ap3 Corrections: (The following items were deleted from the chart) 10:43 10:18 Extremity Venous Uni Ltd+US.RAD.BRZ ordered. EDMS EDMS 10:43 10:18 Lower Extremity Artery Uni Ltd+US.RAD.BRZ ordered. EDMS EDMS
--- NOTE | 2023-06-22 12:46 | ER ---
Nurse's Notes [facility] Name: Cindi Coats Age: 62 yrs Sex: Female : 1960 Arrival Date: 06/22/2023 Time: 10:07 Bed 7 Private MD: Diagnosis: Pain in right upper arm Presentation: 06/22 10:24 Chief complaint: Patient states: she had a cardiac cath on 06/15/2023, and followed the ap3 discharge instructions properly. patient reports she started having severe arm pain in the accessed arm yesterday 06/21/23, which continues today. patient reports the pain to be a 10/10 at this time. Coronavirus screen: At this time, the client does not indicate any symptoms associated with coronavirus-19. Ebola Screen: No symptoms or risks identified at this time. Initial Sepsis Screen: Does the patient meet any 2 criteria? No. Patient's initial sepsis screen is negative. Does the patient have a suspected source of infection? No. Patient's initial sepsis screen is negative. Risk Assessment: Do you want to hurt yourself or someone else? Patient reports no desire to harm self or others. Onset of symptoms was June 21, 2023. 10:24 Method Of Arrival: Ambulatory ap3 10:24 Acuity: HANNAH 3 ap3 Triage Assessment: 10:27 General: Appears uncomfortable, Behavior is calm, cooperative, appropriate for age. ap3 Pain: Complains of pain in right arm Pain currently is 10 out of 10 on a pain scale. Pain began gradually, Is continuous. Neuro: Level of Consciousness is awake, alert, obeys commands, Oriented to person, place, time, situation. Cardiovascular: Patient's skin is warm and dry. Respiratory: Airway is patent Respiratory effort is even, unlabored, Respiratory pattern is regular, symmetrical. Historical: - Allergies: 10:26 Sulfa (Sulfonamide Antibiotics); ap3 - Home Meds: 10:26 losartan oral [Active]; Ozempic subcutaneous [Active]; ap3 - PMHx: 10:26 Hypertension; Hypothyroidism; PULMONARY HYPERTENSION; ap3 - PSHx: 10:26 back surgery; ap3 - Immunization history:: Client reports having NOT received the Covid vaccine. - Social history:: Smoking status: Patient denies any tobacco usage or history of. - Family history:: not pertinent. - Hospitalizations: : Patient was recently seen at. Screenin:27 Abuse screen: Denies threats or abuse. Nutritional screening: No deficits noted. ap3 Tuberculosis screening: No symptoms or risk factors identified. 10:40 [facility] ED Fall Risk Assessment (Adult) History of falling in the last 3 months, ko1 including since admission No falls in past 3 months (0 pts) Confusion or Disorientation No (0 pts) Intoxicated or Sedated No (0 pts) Impaired Gait No (0 pts) Mobility Assist Device Used No (0 pt) Altered Elimination No (0 pt) Score/Fall Risk Level 0 - 2 = Low Risk Oriented to surroundings, Maintained a safe environment, Educated pt \T\ family on fall prevention, incl call for assistance when getting out of bed, Assessed \T\ reinforced patient's understanding of fall precautions, Provided non-skid footwear, Hourly rounding (assess needs \T\ fall precautionary measures) done. Assessment: 10:40 General: Appears in no apparent distress. comfortable, Behavior is calm, cooperative, ko1 appropriate for age. Pain: Complains of pain in right arm. Neuro: No deficits noted. Cardiovascular: No deficits noted. Respiratory: No deficits noted. GI: No deficits noted. : No deficits noted. EENT: No deficits noted. Derm: No deficits noted. Musculoskeletal: Reports pain in right arm. Vital Signs: 10:24 BP 108 / 63; Pulse 66; Resp 18; Temp 98.5; Pulse Ox 98% ; Weight 99.34 kg; Pain 10/10; ap3 12:38 BP 130 / 76; Pulse 68; Resp 16; Pulse Ox 100% ; ko1 13:42 BP 134 / 72; Pulse 74; Resp 18; Pulse Ox 99% ; ko1 10:24 Pain Scale: Adult ap3 ED Course: 10:10 Patient arrived in ED. ts1 10:12 Remigio Becerril DO is Attending Physician. ms3 10:15 Attending Physician role handed off by Remigio Becerril DO rn 10:15 Joseph Rasmussen MD is Attending Physician. rn 10:26 Triage completed. ap3 10:28 ED physician to see patient. ap3 10:28 Patient has correct armband on for positive identification. Bed in low position. Call ap3 light in reach. Side rails up X 1. Pulse ox on. Sitter at bedside. Door closed. Noise minimized. 10:40 Provided Education on: NA. ko1 10:40 Inserted saline lock: 20 gauge in left antecubital area, using aseptic technique. Blood ko1 collected. 10:44 Basic Metabolic Panel Sent. ko1 10:44 CBC with Diff Sent. ko1 10:44 LFT's Sent. ko1 10:44 NT PRO-BNP Sent. ko1 10:44 Troponin HS Sent. ko1 11:14 XRAY Chest (1 view) In Process Unspecified. EDMS 11:21 UPPER EXTREMITY VENOUS UNILATE In Process Unspecified. EDMS 11:21 Upper Ext Artery Uni Brett In Process Unspecified. EDMS 11:35 Liz Borrero, RN is Primary Nurse. ko1 12:07 CT Chest For PE Angio In Process Unspecified. EDMS 13:34 No provider procedures requiring assistance completed. ko1 13:42 IV discontinued, intact, bleeding controlled, No redness/swelling at site. Pressure ko1 dressing applied. 13:43 Arm band placed on right wrist. ko1 Administered Medications: No medications were administered Medication: 13:42 VIS not applicable for this client. ko1 Outcome: 12:46 Discharge ordered by . rn 13:42 Discharged to home ambulatory. ko1 13:42 Condition: stable 13:42 Discharge instructions given to patient, Instructed on discharge instructions, follow up and referral plans. Demonstrated understanding of instructions, follow-up care. 13:43 Patient left the ED. ko1 Signatures: Dispatcher [employer] EDMS Joseph Rasmussen MD MD rn Prokisch, Amanda, RN RN [email or web address] Remigio Becerril DO DO ms3 Liz Borrero, RN RN ko1 Cynthia Fisher PAS PAS ts1
[2023-06-22 14:02] VITALS: TEMP 98.5
[2023-06-22 14:06] VITALS: BP 134/72; O2SAT 99
--- NOTE | 2023-06-23 18:29 | EKG ---
Test Date: 2023-06-22 Test Time: 11:32:13 Record Label Internship: SIMONE MEASUREMENT RESULTS: Intervals: Rate: 60 MD: 160 QRSD: 88 QT: 384 QTc: 384 [place]: P: -2 MD: 160 QRS: 31 T: 4 INTERPRETIVE STATEMENTS: Normal sinus rhythm Normal ECG Compared to ECG 06/19/2021 16:37:05 ST (T wave) deviation no longer present Electronically Signed On 06-23-23 18:26:58 CDT by Bhavin Gallardo
== END 2023-06-22 13:43 | disposition home or self-care (01) ==
LOC: ER 10:07
DX: M79.621 Pain in right upper arm (principal); R07.9 Chest pain, unspecified; I10 Essential (primary) hypertension; I27.20 Pulmonary hypertension, unspecified; Z98.61 Coronary angioplasty status; Z88.2 Allergy status to sulfonamides
CPT/HCPCS: 93005; 85025; 80048; 36415; 80076; 84484; 83880; 71275; 71045; 93971; 93931; 99284; Q9967

== ENCOUNTER 2024-11-19 11:51 | Emergency (ER) | payer OTHER ==
[2024-11-19] MEDS ORDERED: ACETAMINOPHEN 500 MG TAB ONE (12:24)
--- NOTE | 2024-11-19 13:37 | RAD REPORT ---
EXAM: XR Hand Right 3 View HISTORY: [facility] MA[facility] fall Bed Name: 6 COMPARISON: None TECHNIQUE: 3 radiographic views of the RIGHT hand submitted. FINDINGS: No evidence of acute fracture or dislocation. Joint alignment is maintained. No soft tissu e swelling is seen.. Up to moderate degenerative changes involving the radiocarpal articulations and interphalangeal joints most pronounced along the second distal interphalangeal joint. No erosions . IMPRESSION: No acute abnormality. Degenerative changes as above.
--- NOTE | 2024-11-19 14:11 | EDPHYS ---
Physician Documentation [facility] Name: Cindi Coats Age: 63 yrs Sex: Female : 1960 Arrival Date: 11/19/2024 Time: 11:51 Bed 6 Private MD: ED Physician Joseph Rasmussen HPI: 11/19 12:25 This 63 yrs old Female presents to ER via Wheelchair with complaints of Leg cp Injury. 12:25 The patient presents with an injury, pain, that is acute. The complaints affect the cp left lower leg. Context: resulted from the patient falling, while walking, the patient can fully bear weight, the patient is able to ambulate, with moderate difficulty. Onset: The symptoms/episode began/occurred 1 week(s) ago. Associated signs and symptoms: Pertinent positives: injury with abrasions to right hand. Treatment prior to arrival includes: no previous treatment. Historical: - Allergies: 12:12 Sulfa (Sulfonamide Antibiotics); iw - PMHx: 12:12 Hypertension; Hypothyroidism; PULMONARY HYPERTENSION; iw - PSHx: 12:12 back surgery; iw - Immunization history:: Adult Immunizations not up to date. - Infectious Disease History:: Denies. - Social history:: Smoking status: . ROS: 12:30 Constitutional: Negative for body aches, chills, fever, poor PO intake, cp 12:30 Eyes: Negative for injury, pain, redness, and discharge, cp 12:30 Cardiovascular: Negative for chest pain, 12:30 Respiratory: Negative for cough, shortness of breath, wheezing, 12:30 Abdomen/GI: Negative for abdominal pain, nausea, vomiting, and diarrhea, 12:30 MS/extremity: Positive for pain to left lower leg and right hand, 12:30 Neuro: Negative for altered mental status, dizziness, headache, numbness, weakness, 12:30 All other systems are negative, Exam: 12:33 Constitutional: The patient appears in no acute distress, alert, awake, cp non-diaphoretic, non-toxic, well developed, well nourished, obese, uncomfortable, 12:33 Head/Face: Normocephalic, atraumatic. cp 12:33 Neck: ROM/movement: is normal, is supple, without pain, no range of motions limitations, 12:33 Chest/axilla: Inspection: normal, 12:33 Cardiovascular: Rate: normal, 12:33 Respiratory: the patient does not display signs of respiratory distress, Respirations: normal, no use of accessory muscles, no retractions, labored breathing, is not present, Breath sounds: are clear throughout, no decreased breath sounds, 12:33 Abdomen/GI: Exam negative for discomfort, distension, guarding, Inspection: obese 12:33 Back: pain, is absent, ROM is normal, 12:33 Musculoskeletal/extremity: Extremities: noted in the left lower leg: contusion, ecchymosis, swelling, tenderness, noted in the right hand: superficial abrasions to palm of hand, mild swelling, tenderness to palpation, no evidence of decreased ROM, ROM: limited passive range of motion due to pain, in the left knee and left ankle, 12:33 Neuro: Orientation: to person, place \T\ time. Mentation: is normal, Motor: moves all fours, no focal deficits, Vital Signs: 12:11 BP 122 / 87; Pulse 62; Resp 18; Temp 97.8; Pulse Ox 99% on R/A; Weight 103.42 kg; iw Height 5 ft. 1 in. ; Pain 10/10; 12:11 Body Mass Index 43.08 (103.42 kg, 154.94 cm) iw 12:11 Pain Scale: Adult iw MDM: 12:09 Medical Screening Exam initiated cp 13:00 Differential diagnosis: dislocation, open fracture, closed fracture, contusion, cp cellulitis, dvt. 14:10 Data reviewed: vital signs, nurses notes, radiologic studies, plain films, and as a cp result, I will discharge patient. 14:10 I considered the following discharge prescriptions or medication management in the emergency department Medications were administered in the Emergency Department. See MAR. Care significantly affected by the following chronic conditions: Hypertension, Obesity. Counseling: I had a detailed discussion with the patient and/or guardian regarding the historical points, exam findings, and any diagnostic results supporting the discharge/admit diagnosis, radiology results, to return to the emergency department if symptoms worsen or persist or if there are any questions or concerns that arise at home. Response to treatment: the patient's symptoms have mildly improved after treatment, and as a result, I will discharge patient. 11/19 12:21 Order name: XRAY Hand RIGHT 3 View; Complete Time: 14:00 11/19 14:00 Interpretation: Report reviewed. cp 11/19 12:21 Order name: XRAY Tib Fib LEFT cp Administered Medications: 12:26 Drug: Acetaminophen PO 1000 mg PO once Route: PO; ll1 Disposition: 11/20 11:31 Co-signature as Attending Physician, Joseph Rasmussen MD I reviewed the patient's care rn provided by the Advanced Practice Provider and agree with the diagnosis and treatment plan. Disposition Summary: 11/19/24 14:11 Discharge Ordered Notes: Location: Home cp Problem: new cp Symptoms: have improved cp Condition: Stable cp Diagnosis - Contusion of left lower leg cp - Abrasion of right hand cp - Fall on same level, unspecified cp Followup: cp - With: Private Physician - When: As needed - Reason: Worsening of condition Discharge Instructions: - Discharge Summary Sheet cp - Abrasion cp - Contusion cp Forms: - Medication Reconciliation Form cp - Antibiotic Education cp - Prescription Opioid Use cp - Patient Portal Instructions cp - Leadership Thank You Letter cp Prescriptions: - Anaprox DS 550 mg Oral Tablet - take 1 tablet ORAL route every 12 hours As needed; 20 tablet; Refills: 0, cp Product Selection Permitted Signatures: Dispatcher [employer] Radha Ruiz RN Joseph Kowalski MD MD rn Page, Corey, PA PA Alison Israel RN RN ll1 Corrections: (The following items were deleted from the chart) 11/19 12:22 12:22 Hand Right 3 View+RAD.RAD.BRZ ordered. EDMS EDMS 12: 12:22 Tib Fib Left+RAD.RAD.BRZ ordered. EDMS EDMS
--- NOTE | 2024-11-19 14:11 | ER ---
Nurse's Notes [facility] Name: Cindi Coats Age: 63 yrs Sex: Female : 1960 Arrival Date: 11/19/2024 Time: 11:51 Bed 6 Private MD: Diagnosis: Contusion of left lower leg;Abrasion of right hand;Fall on same level, unspecified Presentation: 11/19 12:11 Chief complaint: Patient states: fell last week, injured her left lower leg, there is iw bruising and pain in left knee and grove. Coronavirus screen: At this time, the client does not indicate any symptoms associated with coronavirus-19. Ebola Screen: No symptoms or risks identified at this time. Initial Sepsis Screen: Does the patient meet any 2 criteria? No. Patient's initial sepsis screen is negative. Does the patient have a suspected source of infection? No. Patient's initial sepsis screen is negative. Risk Assessment: Do you want to hurt yourself or someone else? Patient reports no desire to harm self or others. Onset of symptoms was November 11, 2024. 12:11 Method Of Arrival: Wheelchair iw 12:11 Acuity: HANNAH 3 iw Historical: - Allergies: 12:12 Sulfa (Sulfonamide Antibiotics); iw - PMHx: 12:12 Hypertension; Hypothyroidism; PULMONARY HYPERTENSION; iw - PSHx: 12:12 back surgery; iw - Immunization history:: Adult Immunizations not up to date. - Infectious Disease History:: Denies. - Social history:: Smoking status: . Screenin:18 [facility] ED Fall Risk Assessment (Adult) History of falling in the last 3 months, ll1 including since admission Yes- single mechanical fall (1 pt) Confusion or Disorientation No (0 pts) Intoxicated or Sedated No (0 pts) Impaired Gait Yes (1 pt) Mobility Assist Device Used Yes (1 pt) Altered Elimination No (0 pt) Score/Fall Risk Level 3 or more points = High Risk Hourly rounding (assess needs \T\ fall precautionary measures) done, Used ambulatory aids as needed (educated on \T\ assisted with). Abuse screen: Denies threats or abuse. Nutritional screening: No deficits noted. Tuberculosis screening: No symptoms or risk factors identified. Assessment: 12:17 General: Appears uncomfortable, Behavior is calm, cooperative, appropriate for age. ll1 Pain: Complains of pain in left leg Quality of pain is described as aching. Musculoskeletal: Reports pain in left leg. Injury Description: Bruise sustained to left leg. 12:26 Reassessment: No changes from previously documented assessment. Patient and/or family ll1 updated on plan of care and expected duration. Pain level reassessed. Patient is alert, oriented x 3, equal unlabored respirations, skin warm/dry/pink. 13:57 Reassessment: No changes from previously documented assessment. Patient and/or family ll1 updated on plan of care and expected duration. Pain level reassessed. Patient is alert, oriented x 3, equal unlabored respirations, skin warm/dry/pink. Vital Signs: 12:11 BP 122 / 87; Pulse 62; Resp 18; Temp 97.8; Pulse Ox 99% on R/A; Weight 103.42 kg; iw Height 5 ft. 1 in. ; Pain 10/10; 12:11 Body Mass Index 43.08 (103.42 kg, 154.94 cm) iw 12:11 Pain Scale: Adult iw ED Course: 11:54 Patient arrived in ED. am2 11:55 Frank Dozier PA is PHCP. cp 11:55 Joseph Rasmussen MD is Attending Physician. cp 12:06 Alison Payton, SVEN is Primary Nurse. ll1 12:06 Arm band placed on Patient placed in an exam room, on a stretcher. ll1 12:12 Triage completed. iw 12:19 Patient has correct armband on for positive identification. Bed in low position. ll1 Provided Education on: ER procedures and process. Cardiac monitoring not applicable on this patient. 12:26 No provider procedures requiring assistance completed. Patient did not have IV access ll1 during this emergency room visit. 12:56 XRAY Hand RIGHT 3 View In Process Unspecified. EDMS 12:56 XRAY Tib Fib LEFT In Process Unspecified. EDMS Administered Medications: 12:26 Drug: Acetaminophen PO 1000 mg PO once Route: PO; ll1 Medication: 12:19 VIS not applicable for this client. ll1 Outcome: 14:11 Discharge ordered by . cp 14:19 Patient left the ED. ll1 Signatures: Dispatcher [employer] EDMS Radha Cross RN RN Frank Dozier PA PA Silvia Taylor am2 Alison Payton, RN RN ll1
--- NOTE | 2024-11-19 14:46 | RAD REPORT ---
EXAMINATION: XR Tib Fib Left CLINICAL INDICATION: Female, 63 years old. fall;Pain TECHNIQUE: 2 view radiograph of the left tibia and fibula were obtained. COMPARISON: No prior exam. FINDINGS: No evidence of fracture or dislocation. Normal alignment. Moderate tricompartmental osteoar thritic changes with marginal spurring. Suspected mild to moderate knee joint effusion. Small calcaneal spur. No suspicious focal bone lesion. Soft tissues are unremarkable. IMPRESSION: No acute osseous abnormalities. Degenerative changes as above. Suspected mild to moderate suprapatell ar knee joint effusion.
== END 2024-11-19 14:19 | disposition home or self-care (01) ==
LOC: ER 11:51
DX: S80.12XA Contusion of left lower leg, initial encounter (principal); S60.511A Abrasion of right hand, initial encounter; W18.30XA Fall on same level, unspecified, initial encounter; I10 Essential (primary) hypertension; I27.20 Pulmonary hypertension, unspecified; E03.9 Hypothyroidism, unspecified; Z88.2 Allergy status to sulfonamides
CPT/HCPCS: 99282